=== PATIENT | female | born 1940 | race Caucasian/White ===

== ENCOUNTER 2018-06-14 00:37 | Inpatient (IN) | payer OTHER ==
[2018-06-14] MEDS ORDERED: ONDANSETRON 4 MG/2 ML VIAL ONE (01:12)
[2018-06-14] MEDS ORDERED: NA CHLORIDE 0.9% 1,000 ML ONE ×2 (01:12→01:26)
[2018-06-14] MEDS ORDERED: MEPERIDINE HCL 50 MG/ML AMP ONE (01:26)
[2018-06-14 01:36] LABS: Absolute Lymphocytes (CBC) 0.7 K/uL (0.7-4.9); Absolute Monocytes 0.2 K/uL (0.1-1.3); Absolute Neutrophil 10.1 K/uL (1.8-8.0); Basophils % 0.4 % (0-1.3); Eosinophils % 0.2 % (0-4.4); Hematocrit 45.2 % (36.0-45.0); Lymphocytes % 6.3 % (15.3-44.8); MPV 9.5 fL (7.6-11.3); Monocytes % 1.7 % (3.3-12.3); RBC Red Blood Cell Count 4.95 M/uL (3.86-4.86)
[2018-06-14 01:54] LABS: Albumin 4.4 g/dL (3.4-5.0); Bilirubin Direct 0.2 mg/dL (0-0.2); Bilirubin Total 0.8 mg/dL (0.2-1.0); Potassium 3.7 mmol/L (3.5-5.1); Protein, Total 7.9 g/dL (6.4-8.2)
[2018-06-14] MEDS ORDERED: PROMETHAZINE 25 MG/ML VIAL ONE (02:12)
[2018-06-14 02:53] LABS: Blood Morphology Comment NOT SEEN (NOT SEEN); Platelet Estimate ADEQ; Urine White Blood Cell Casts OK
[2018-06-14] MEDS ORDERED: MORPHINE 4 MG/ML SYR ONE (03:45)
[2018-06-14] MEDS ORDERED: ACETAMINOPHEN 500 MG TAB PO PRN (06:28)
[2018-06-14] MEDS ORDERED: MAGNESIUM HYDROXIDE 8% 30 ML PO PRN (06:28)
--- NOTE | 2018-06-14 06:30 | ER ---
Nurse's Notes [facility] Name: Candice Silva Age: 77 yrs Sex: Female : 1940 Arrival Date: 06/14/2018 Time: 00:40 Bed 15 Private MD: Diagnosis: Abdominal pain. Small bowel obstruction Presentation: 06/14 00:45 Presenting complaint: Patient states: that she had spicy food last night for dinner and then at 1900 started to have severe abd cramping and pain. Upon arrival to ER started to have nausea and vomiting. Transition of care: patient was not received from another setting of care. Onset of symptoms was June 13, 2018 at 19:00. Risk Assessment: Do you want to hurt yourself or someone else? Patient reports no desire to harm self or others. Initial Sepsis Screen: Does the patient meet any 2 criteria? HR > 90 bpm. Yes Does the patient have a suspected source of infection? No. Patient's initial sepsis screen is negative. Care prior to arrival: None. 00:45 Method Of Arrival: Ambulatory 00:45 Acuity: HAILEY 3 fc Historical: - Allergies: 01:06 No Known Allergies; fc - Home Meds: 01:06 losartan oral oral once daily [Active]; Tramadol Oral as needed [Active]; fc - PMHx: 01:06 Hypertension; colon cancer; fc - PSHx: 01:06 colon sx; Hysterectomy; fc - Immunization history:: Last tetanus immunization: unknown, Flu vaccine is up to date. - Social history:: Smoking status: Patient/guardian denies using tobacco, Patient uses alcohol, but reports only rare drinking. - Ebola Screening: : Patient negative for fever greater than or equal to 101.5 degrees Fahrenheit, and additional compatible Ebola Virus Disease symptoms Patient denies exposure to infectious person Patient denies travel to an Ebola-affected area in the 21 days before illness onset. Screenin:45 Abuse screen: Denies threats or abuse. Nutritional screening: No deficits noted. fc Tuberculosis screening: No symptoms or risk factors identified. Fall Risk None identified. Assessment: 01:00 General: Appears in no apparent distress. uncomfortable, Behavior is cooperative, cc3 appropriate for age. Pain: Complains of pain in left upper quadrant and right upper quadrant Pain currently is 10 out of 10 on a pain scale. Neuro: Level of Consciousness is awake, alert, obeys commands, Oriented to person, place, time, situation, Appropriate for age. Cardiovascular: Denies chest pain. Respiratory: Airway is patent Respiratory effort is even, unlabored. GI: Abdomen is round. : No signs and/or symptoms were reported regarding the genitourinary system. EENT: No signs and/or symptoms were reported regarding the EENT system. Derm: No signs and/or symptoms reported regarding the dermatologic system. Musculoskeletal: Circulation, motion, and sensation intact. Range of motion: intact in all extremities. 02:45 Reassessment: Patient has 200 mL remaining of her oral contrast and she said she cannot cc3 take it anymore, informed CT scan department and the avionic technician said it's fine she'll take the patient later for the procedure. 03:42 Reassessment: Patient vomited large amount, informed Dr. Emanuel and he ordered patient to cc3 proceed to CT scan with IV contrast, called Ct scan department at extension [id number] and the hearing aide technician is informed. 04:20 Reassessment: Patient appears in no apparent distress at this time. Patient and/or cc3 family updated on plan of care and expected duration. Pain level reassessed. Patient is alert, oriented x 3, equal unlabored respirations, skin warm/dry/pink. Patient came back from CT scan department, awaiting result. 05:05 Reassessment: Patient and/or family updated on plan of care and expected duration. Pain ea level reassessed. Patient is alert, oriented x 3, equal unlabored respirations, skin warm/dry/pink. Patient denies pain at this time. 06:45 Reassessment: Patient appears in no apparent distress at this time. Patient and/or cc3 family updated on plan of care and expected duration. Pain level reassessed. Patient is alert, oriented x 3, equal unlabored respirations, skin warm/dry/pink. Patient for admission, awaiting admission orders. Dr. Chicas at bedside. 06:55 Reassessment: KELSEY Allison said Dr. Chicas ordered to hold NGT placement for the patient, as cc3 long as she's not vomiting at the moment and as long as she's passing flatus. 07:00 Reassessment: Patient appears in no apparent distress at this time. No changes from jl7 previously documented assessment. Patient and/or family updated on plan of care and expected duration. Pain level reassessed. Patient is alert, oriented x 3, equal unlabored respirations, skin warm/dry/pink. Patient states feeling better. Patient states symptoms have improved. 08:00 Reassessment: Patient appears in no apparent distress at this time. Patient and/or jl7 family updated on plan of care and expected duration. Pain level reassessed. Patient is alert, oriented x 3, equal unlabored respirations, skin warm/dry/pink. 09:00 Reassessment: No changes from previously documented assessment. Patient and/or family jl7 updated on plan of care and expected duration. Pain level reassessed. Patient is alert, oriented x 3, equal unlabored respirations, skin warm/dry/pink. Vital Signs: 00:45 BP 180 / 94; Pulse 105; Resp 20; Pulse Ox 100% on R/A; Weight 79.38 kg (R); Height 5 fc ft. 6 in. (167.64 cm) (R); Pain 10/10; 00:45 Temp 98.1(O); cc3 01:15 BP 140 / 72; Pulse 92; Resp 20 S; Pulse Ox 95% on R/A; cc3 02:30 BP 148 / 78; Pulse 94; Resp 20 S; Pulse Ox 98% on R/A; cc3 03:30 BP 132 / 71; Pulse 92; Resp 19 S; Pulse Ox 97% on R/A; cc3 04:45 BP 112 / 62; Pulse 83; Resp 18 S; Pulse Ox 95% on R/A; cc3 05:00 BP 107 / 59; Pulse 70; Resp 18; Pulse Ox 97% ; ea 06:20 BP 110 / 62; Pulse 73; Resp 19 S; Pulse Ox 95% on R/A; cc3 07:00 BP 111 / 65; Pulse 73; Resp 16 S; Pulse Ox 96% on R/A; jl7 08:00 BP 112 / 61; Pulse 70; Resp 16 S; Pulse Ox 95% on R/A; jl7 09:00 BP 127 / 65; Pulse 87; Resp 16 S; Pulse Ox 97% on R/A; jl7 00:45 Body Mass Index 28.25 (79.38 kg, 167.64 cm) ED Course: 00:40 Patient arrived in ED. ag3 00:45 Arm band placed on Patient placed in an exam room, on a stretcher. fc 00:45 Patient has correct armband on for positive identification. Placed in gown. Bed in low fc position. Call light in reach. Side rails up X 1. Pulse ox on. NIBP on. 00:45 No provider procedures requiring assistance completed. fc 00:55 Inserted saline lock: 22 gauge in right antecubital area, using aseptic technique. fc ,using aseptic technique. per Ramya Tech. 01:00 Catarina Love is Primary Nurse. cc3 01:00 Triage completed. fc 01:01 Shiva Emanuel MD is Attending Physician. pkl 01:30 Inserted saline lock: 22 gauge in right antecubital area, using aseptic technique. gm Blood collected. 01:31 Initial lab(s) drawn, by me, sent to lab. gm 02:28 Radiology exam delayed due to Patient has been extremely nauseous. Unable to begin kw1 drinking oral contrast until 0230. 03:[address] via stretcher. kw1 04:09 CT Abd/Pelvis - W/Contrast In Process Unspecified. EDMS 04:11 CT completed. Patient tolerated procedure well. Patient moved back from CT. kw1 06:29 Nora Chicas MD is Hospitalizing Provider. pkl 07:00 Report given to KELSEY Baker. cc3 07:05 Olivia Phillips RN is Primary Nurse. jl7 09:43 Patient admitted, IV remains in place. intact, No redness/swelling at site. jl7 Administered Medications: 01:05 Drug: NS 0.9% 1000 ml Route: IV; Rate: 1 bolus; Site: right antecubital; cc3 02:10 Follow up: Response: No adverse reaction; IV Status: Completed infusion; IV Intake: cc3 1000ml 01:06 Drug: Zofran 4 mg Route: IVP; Site: right antecubital; cc3 01:30 Follow up: Response: No adverse reaction cc3 01:20 Drug: Demerol 50 mg Route: IVP; Site: right antecubital; cc3 02:00 Follow up: Response: No adverse reaction cc3 02:05 Drug: Phenergan 12.5 mg Route: IVP; Site: right antecubital; cc3 02:30 Follow up: Response: No adverse reaction; Nausea is decreased; Vomiting decreased cc3 02:30 Drug: NS 0.9% 1000 ml Route: IV; Rate: 125 ml/hr; Site: right antecubital; cc3 09:46 Follow up: IV Status: Completed infusion; IV Intake: 968ml jl7 03:35 Drug: morphine 4 mg Route: IVP; Site: right antecubital; cc3 04:00 Follow up: Response: No adverse reaction; Pain is decreased cc3 06:25 Drug: Dilaudid 1 mg Route: IVP; Site: right antecubital; cc3 06:55 Follow up: Response: No adverse reaction; Pain is decreased ea 06:55 Drug: Flagyl 500 mg Volume: 100 ml; Route: IVPB; Rate: 200 ml/hr; Infused Over: 30 cc3 mins; Site: right antecubital; 07:25 Follow up: Response: No adverse reaction; IV Status: Completed infusion jl7 07:30 Drug: LevaQUIN 750 mg Volume: 150 ml; Route: IVPB; Infused Over: 90 mins; Site: right jl7 antecubital; 09:00 Follow up: Response: No adverse reaction; IV Status: Completed infusion jl7 Intake: 02:10 IV: 1000ml; Total: 1000ml. cc3 09:46 IV: 968ml; Total: 1968ml. jl7 Outcome: 06:30 Decision to Hospitalize by Provider. pkl 09:43 Admitted to Med/surg accompanied by tech, via wheelchair, room 220. jl7 09:43 Condition: stable 09:43 Discharge instructions given to patient, Instructed on the need for admit, Demonstrated understanding of instructions. 09:44 Patient left the ED. jl7 Signatures: Dispatcher [employer] EDMS Shiva Emanuel MD MD pkArlene Hayward RN Olivia Miller RN RN jl7 Estefany Escobedo RN RN ea Wilhelm, Kimberly kw1 Cordel, Charlene 3 Esperanza Hunt Gabriella gm Corrections: (The following items were deleted from the chart) 09:45 09:44 Response: No adverse reaction; IV Status: Completed infusion jl7 jl7
--- NOTE | 2018-06-14 06:31 | EDPHYS ---
Physician Documentation [facility] Name: Candice Silva Age: 77 yrs Sex: Female : 1940 Arrival Date: 06/14/2018 Time: 00:40 Bed 15 Private MD: ED Physician Shiva Emanuel HPI: 06/14 01:20 This 77 yrs old Female presents to ER via Ambulatory with complaints of pkl Abdominal Cramping. 01:20 The patient presents with abdominal pain in the upper abdomen. Onset: The pkl symptoms/episode began/occurred just prior to arrival, 2 hour(s) ago. The symptoms do not radiate. Associated signs and symptoms: Pertinent positives: nausea and vomiting. Historical: - Allergies: 01:06 No Known Allergies; fc - Home Meds: 01:06 losartan oral oral once daily [Active]; Tramadol Oral as needed [Active]; fc - PMHx: 01:06 Hypertension; colon cancer; fc - PSHx: 01:06 colon sx; Hysterectomy; fc - Immunization history:: Last tetanus immunization: unknown, Flu vaccine is up to date. - Social history:: Smoking status: Patient/guardian denies using tobacco, Patient uses alcohol, but reports only rare drinking. - Ebola Screening: : Patient negative for fever greater than or equal to 101.5 degrees Fahrenheit, and additional compatible Ebola Virus Disease symptoms Patient denies exposure to infectious person Patient denies travel to an Ebola-affected area in the 21 days before illness onset. ROS: 01:20 Eyes: Negative for injury, pain, redness, and discharge, ENT: Negative for injury, pkl pain, and discharge, Neck: Negative for injury, pain, and swelling, Cardiovascular: Negative for chest pain, palpitations, and edema, Respiratory: Negative for shortness of breath, cough, wheezing, and pleuritic chest pain. 01:20 Abdomen/GI: Positive for abdominal pain, nausea and vomiting, of the right upper quadrant and left upper quadrant. 01:20 Back: Negative for injury or acute deformity. 01:20 : Negative for urinary symptoms. 01:20 MS/extremity: Negative for acute changes. 01:20 Skin: Negative for rash. 01:20 Neuro: Negative for altered mental status. Exam: 01:20 Head/Face: Normocephalic, atraumatic. Eyes: Pupils equal round and reactive to light, pkl extra-ocular motions intact. Lids and lashes normal. Conjunctiva and sclera are non-icteric and not injected. Cornea within normal limits. Periorbital areas with no swelling, redness, or edema. ENT: Nares patent. No nasal discharge, no septal abnormalities noted. Tympanic membranes are normal and external auditory canals are clear. Oropharynx with no redness, swelling, or masses, exudates, or evidence of obstruction, uvula midline. Mucous membranes moist. Neck: Trachea midline, no thyromegaly or masses palpated, and no cervical lymphadenopathy. Supple, full range of motion without nuchal rigidity, or vertebral point tenderness. No Meningismus. Chest/axilla: Normal chest wall appearance and motion. Nontender with no deformity. No lesions are appreciated. Cardiovascular: Regular rate and rhythm with a normal S1 and S2. No gallops, murmurs, or rubs. Normal PMI, no JVD. No pulse deficits. Respiratory: Lungs have equal breath sounds bilaterally, clear to auscultation and percussion. No rales, rhonchi or wheezes noted. No increased work of breathing, no retractions or nasal flaring. 01:20 Abdomen/GI: Inspection: distension, that is moderate, Bowel sounds: normal, Palpation: soft, mild abdominal tenderness, in the right upper quadrant and left upper quadrant. 01:20 Back: Exam negative for acute changes. 01:20 : Exam negative for acute changes. 01:20 Musculoskeletal/extremity: Exam is negative for acute changes. 01:20 Skin: Exam negative for rash. 01:20 Neuro: Orientation: is normal, Mentation: is normal, Cranial nerves: grossly normal, Motor: is normal. Vital Signs: 00:45 BP 180 / 94; Pulse 105; Resp 20; Pulse Ox 100% on R/A; Weight 79.38 kg (R); Height 5 fc ft. 6 in. (167.64 cm) (R); Pain 10/10; 00:45 Temp 98.1(O); cc3 01:15 BP 140 / 72; Pulse 92; Resp 20 S; Pulse Ox 95% on R/A; cc3 02:30 BP 148 / 78; Pulse 94; Resp 20 S; Pulse Ox 98% on R/A; cc3 03:30 BP 132 / 71; Pulse 92; Resp 19 S; Pulse Ox 97% on R/A; cc3 04:45 BP 112 / 62; Pulse 83; Resp 18 S; Pulse Ox 95% on R/A; cc3 05:00 BP 107 / 59; Pulse 70; Resp 18; Pulse Ox 97% ; ea 06:20 BP 110 / 62; Pulse 73; Resp 19 S; Pulse Ox 95% on R/A; cc3 07:00 BP 111 / 65; Pulse 73; Resp 16 S; Pulse Ox 96% on R/A; jl7 08:00 BP 112 / 61; Pulse 70; Resp 16 S; Pulse Ox 95% on R/A; jl7 09:00 BP 127 / 65; Pulse 87; Resp 16 S; Pulse Ox 97% on R/A; jl7 00:45 Body Mass Index 28.25 (79.38 kg, 167.64 cm) fc MDM: 01:02 Patient medically screened. pkl 06:28 Data reviewed: vital signs, nurses notes, lab test result(s), radiologic studies, CT pkl scan. 06/14 01:14 Order name: Basic Metabolic Panel; Complete Time: 02:55 pkl 06/14 01:14 Order name: CBC with Diff; Complete Time: 02:55 pkl 06/14 01:14 Order name: Creatinine for Radiology; Complete Time: 02:55 pkl 06/14 01:14 Order name: Hepatic Function; Complete Time: 02:55 pkl 06/14 01:14 Order name: Lipase; Complete Time: 02:55 pkl 06/14 02:53 Order name: CBC Smear Scan; Complete Time: 02:55 EDMS 06/14 06:32 Order name: CBC with Automated Diff EDMS 06/14 06:32 Order name: CBC with Automated Diff EDMS 06/14 06:32 Order name: Comprehensive Metabolic Panel EDMS 06/14 06:32 Order name: Comprehensive Metabolic Panel EDMS 06/14 06:32 Order name: Lipase EDMS 06/14 06:32 Order name: Lipase EDMS 06/14 06:32 Order name: Magnesium EDMS 06/14 06:32 Order name: Magnesium EDMS 06/14 01:14 Order name: IV Saline Lock; Complete Time: 01:14 pkl 06/14 01:14 Order name: Labs collected and sent; Complete Time: 01:28 pkl 06/14 01:14 Order name: CT Abd/Pelvis - W/Contrast pkl 06/14 06:32 Order name: CONS Physician Consult EDMS 06/14 06:32 Order name: NPO EDMS 06/14 06:32 Order name: Phosphorus EDMS 06/14 06:33 Order name: Phosphorus EDMS Administered Medications: 01:05 Drug: NS 0.9% 1000 ml Route: IV; Rate: 1 bolus; Site: right antecubital; cc3 02:10 Follow up: Response: No adverse reaction; IV Status: Completed infusion; IV Intake: cc3 1000ml 01:06 Drug: Zofran 4 mg Route: IVP; Site: right antecubital; cc3 01:30 Follow up: Response: No adverse reaction cc3 01:20 Drug: Demerol 50 mg Route: IVP; Site: right antecubital; cc3 02:00 Follow up: Response: No adverse reaction cc3 02:05 Drug: Phenergan 12.5 mg Route: IVP; Site: right antecubital; cc3 02:30 Follow up: Response: No adverse reaction; Nausea is decreased; Vomiting decreased cc3 02:30 Drug: NS 0.9% 1000 ml Route: IV; Rate: 125 ml/hr; Site: right antecubital; cc3 09:46 Follow up: IV Status: Completed infusion; IV Intake: 968ml jl7 03:35 Drug: morphine 4 mg Route: IVP; Site: right antecubital; cc3 04:00 Follow up: Response: No adverse reaction; Pain is decreased cc3 06:25 Drug: Dilaudid 1 mg Route: IVP; Site: right antecubital; cc3 06:55 Follow up: Response: No adverse reaction; Pain is decreased ea 06:55 Drug: Flagyl 500 mg Volume: 100 ml; Route: IVPB; Rate: 200 ml/hr; Infused Over: 30 cc3 mins; Site: right antecubital; 07:25 Follow up: Response: No adverse reaction; IV Status: Completed infusion jl7 07:30 Drug: LevaQUIN 750 mg Volume: 150 ml; Route: IVPB; Infused Over: 90 mins; Site: right jl7 antecubital; 09:00 Follow up: Response: No adverse reaction; IV Status: Completed infusion jl7 Disposition: 06/14/18 06:30 Hospitalization ordered by Nora Chicas for Inpatient Admission. Preliminary diagnosis is Abdominal pain. Small bowel obstruction. - Bed requested for Telemetry/MedSurg (Inpatient). - Status is Inpatient Admission. jl7 - Condition is Stable. - Problem is new. - Symptoms are unchanged. UTI on Admission? No Signatures: Dispatcher [employer] EDMS Rea Del Real RN RN Shiva Emanuel MD MD pkl Arlene Fernandez RN KELSEY Olivia Phillips RN RN jl7 Catarina Love 3 Estefany Escobedo RN, ea Corrections: (The following items were deleted from the chart) 07:49 06:20 NG Tube ordered. pk jl7 09:11 06:30 Hospitalization Ordered by Nora Chicas MD for Inpatient Admission. Preliminary dw diagnosis is Abdominal pain. Small bowel obstruction. Bed requested for Telemetry/MedSurg (Inpatient). Status is Inpatient Admission. Condition is Stable. Problem is new. Symptoms are unchanged. UTI on Admission? No. pkl 09:44 09:11 06/14/2018 06:30 Hospitalization Ordered by Nora Chicas MD for Inpatient jl7 Admission. Preliminary diagnosis is Abdominal pain. Small bowel obstruction. Bed requested for Telemetry/MedSurg (Inpatient). Status is Inpatient Admission. Condition is Stable. Problem is new. Symptoms are unchanged. UTI on Admission? No. dw
[2018-06-14] MEDS ORDERED: HYDROMORPHONE HCL 1 MG/ML INJ ONE (06:33)
[2018-06-14] MEDS ORDERED: LIDOCAINE VISCOUS 2% SOLN 15 ML UDC ONE (06:48)
[2018-06-14] MEDS: Levofloxacin500mg IV 500 MG/100 ML BAG IV SCH (07:00)
[2018-06-14] MEDS: NA CHLORIDE 0.9% 1,000 ML IV SCH ×3 (07:00→20:20)
[2018-06-14] MEDS ORDERED: Levofloxacin 750mg IV 750 MG/150 ML BAG IV ONE (07:01)
[2018-06-14] MEDS ORDERED: METRONIDAZOLE 500mg IVPB 500 MG/100 ML BAG IV ONE (07:01)
--- NOTE | 2018-06-14 07:24 | P.HP ---
Certification for Inpatient Patient admitted to: Inpatient With expected LOS: >2 Midnights Patient will require the following post-hospital care: None Practitioner: I am a practitioner with admitting privileges, knowledge of patient current condition, hospital course, and medical plan of care. Services: Services provided to patient in accordance with Admission requirements found in Title 42 Section 412.3 of the Code of Federal Regulations Patient History Date of Service: 06/14/18 Reason for admission: Small-bowel obstruction History of Present Illness: Patient is a 77-year-old female came to the hospital with abdominal pain. She states she has been eating a lot of cabbage and other foods which she normally does not eat over the holidays. Her diet has not been that great as of late. She noticed that she started having some abdominal discomfort. The pain got more severe and she came into the ER. In the emergency room she had intractable nausea and vomiting. She states that she had a bowel movement yesterday evening. She is having occasional flatus. Her CT scan indicated small-bowel obstruction. Decision was made to admit the patient to the hospital for further workup. At this time patient may have a partial small- bowel obstruction. Patient does not want an NG tube. Patient has a history of rectal cancer and have laparoscopic procedure with a colostomy 4 years ago. This was done at [facility] by Dr. Gonzales. Patient did well and has been in remission since that time. According the patient there is no sign of cancer. Allergies No Known Allergies Allergy (Unverified 11/19/13 11:41) Home Medications: Bisacodyl [Dulcolax*] 1 tab PO DAILY 11/19/13 Capecitabine [Xeloda] 3 tab PO BID 11/19/13 Hydrocodone Bit/Acetaminophen [Hydrocodon-Acetaminophn 10-325] 1 tab PO Q6HP PRN 11/19/13 Pyridoxine [Vitamin B-6*] 3 tab PO DAILY 11/19/13 Senosides [Senokot*] 1 tab PO DAILY 11/19/13 Omeprazole [Prilosec] 40 mg PO DAILY #30 capsule. 11/20/13 - Past Medical/Surgical History Diabetic: No -: Rectal Cancer -: Hysterectomy -: Bladder Suspension -: Partial colectomy -: partial colectomy-laparoscopically -: Bladder suspension -: Hysterectomy - Family History Father Family History: Reviewed- Non-Contributory - Social History Smoking Status: Never smoker Alcohol use: No CD- Drugs: No Caffeine use: Yes Review of Systems 10-point ROS is otherwise unremarkable Physical Examination - Vital Signs Temperature: 99 F Blood Pressure: 140/80 Pulse: 88 Respirations: 18 Pulse Ox (%): 95 - Physical Exam General: Alert, In no apparent distress, Oriented x3 HEENT: Atraumatic, Normocephalic Neck: Supple, 2+ carotid pulse no bruit, JVD not distended, No Thyromegaly, No LAD Respiratory: Clear to auscultation bilaterally, Normal air movement Cardiovascular: Regular rate/rhythm, Normal S1 S2, No murmurs Gastrointestinal: Normal bowel sounds, Soft and benign, Non-distended, No tenderness, No rebound, No guarding Musculoskeletal: No clubbing, No swelling Integumentary: No rashes Neurological: Normal gait, Normal speech, Normal strength at 5/5 x4 extr, Normal tone, Sensation intact, Cranial nerves 3-12 intact, Normal reflexes 2+ - Studies Laboratory Data (last 24 hrs) 06/14/18 01:05: Creatinine 0.88 06/14/18 01:05: WBC 11.0 H, Hgb 15.2 H, Hct 45.2 H, Plt Count 317 06/14/18 01:05: Sodium 142, Potassium 3.7, BUN 19 H, Creatinine 0.86, Glucose 136 H, Total Bilirubin 0.8, AST 15, ALT 26, Alkaline Phosphatase 78, Lipase 112 Assessment & Plan - Problems (Diagnosis) (1) Small bowel obstruction, partial Current Visit: Yes Status: Acute (2) Abdominal pain Current Visit: Yes Status: Acute (3) Rectal carcinoma Current Visit: Yes Status: Acute (4) History of partial colectomy Current Visit: Yes Status: Acute - Plan 1. Continue with IV hydration 2. Continue with IV antibiotics 3. Continue with pain control 4. NPO 5. General surgery consultation; 6. Serial H&H, and we will monitor CBC, BMP, LFTs and lipase along with electrolytes. 7. If nausea and vomiting then place NG tube 8. GI and DVT prophylaxis Discharge Plan: Home Plan to discharge in: Greater than 2 days - Advance Directives Does patient have a Living Will: No Does patient have a Durable POA for Healthcare: No - Code Status/Comfort Care Code Status Assessed: Yes Code Status: Full Code Critical Care: No Time Spent Managing PTS Care (In Minutes): 45
[2018-06-14] MEDS: METRONIDAZOLE 500mg IVPB 500 MG/100 ML BAG IV SCH ×2 (09:00→17:10)
--- NOTE | 2018-06-14 09:18 | RAD REPORT ---
EXAM DESCRIPTION: CT - Abdomen Pelvis W Contrast - 06/14/2018 6:25 am CLINICAL HISTORY: Abdominal pain with vomiting. Colon cancer COMPARISON: July 2017 TECHNIQUE: Computed axial tomography of the abdomen pelvis was obtained. 100 cc Isovue-300 was admin istered intravenously. Oral contrast was not requested which limits evaluation of bowel. Preliminary report generated by virtual radiologic and review prior to dictation All CT scans are performed using dose optimization technique as appropriate and may include automated exposure control or mA/KV adjustment according to patient size. FINDINGS: The liver, spleen, pancreas, adrenal and right kidney appear unremarkable. 10 Millimeter nonobstructing left renal calculus Postsurgical changes involve the sigmoid and rectum. Jejunum and portion of the ileum are mildly dilated. Distal ileum is decompressed. The wall of severa l loops of ileum is thickened. Small amount ascites is seen. The appendix is normal IMPRESSION: Obstruction in the region of the mid ileum. The wall of several loops of ileum is thicke ngozi which could indicate inflammation or ischemia.
[2018-06-14 10:32] VITALS: BMI 28.2
--- NOTE | 2018-06-14 14:04 | CON ---
Date of Consultation: 06/14/2018 Reason For Consultation: Small bowel obstruction. Brief History Of Present Illness: The patient is a 77-year-old female with a history of re ctal cancer status post resection with Dr. Matthew Gonzales, approximately 4-5 years ago, who was doing well with her diet as of the last few weeks. However, she noted that around the holidays, and so forth, she started increasing her diet intake and was eating lots of cabbage and things she livier lly did not eat, but the volume of what she had eaten had gone up significantly due to the holidays. She noted that she started developing abdominal pain. She tried to drink a lot of liquids to help r esolve this, but the pain continued to get worse. It was a sharp, stabbing-type pain, she states sim ilar to her postsurgical feel from 4-5 years ago. She states that she had some nausea and vomiting a ssociated. She had a bowel movement earlier in the day, but had not had a bowel movement since her p ain occurred. She has had no gas up until late last night at which point she started passing gas and getting some symptomatic improvement. Her pain has essentially resolved at this point. She has no tenderness or pain at this time. She does have a history of a colonoscopy approximately 1 year ago f katie Obrien by her report. The report is not available for my review. However, she states it was essentially normal at that time. She did have a temporary colostomy/ileostomy, she is unsure of the type, related to her surgery for 4-5 years ago, but had a reversal 4-5 months after her initial surg liliana and has been doing well since. She was refusing the NG tube in the emergency room and she states she has had no evidence of cancer recurrence related to her rectal cancer. Past Medical History: Significant for the rectal cancer. Past Surgical History: Includes hysterectomy, bladder suspension, partial colectomy, which was perfo rmed laparoscopically, ileostomy takedown/colostomy takedown and reversal, bladder suspension. Home Medications: Include Dulcolax, Xeloda, [place], vitamin B6, Senokot, and Prilosec. Allergies: NO KNOWN DRUG ALLERGIES. Family History: Reviewed, noncontributory. Social History: She denies smoking, alcohol, or recreational drug use. Review of Systems: A 10-point review of systems other than HPI, denies. Physical Examination: Vital Signs: At the time of my examination, her blood pressure 123/65, pulse is 87, respiratory rate 16, temperature 98.0. She is 5 feet 6 inches, 175 pounds. General: She is awake, alert, and oriented. Psychiatric: She is appropriate and conversive. HEENT: She is normocephalic. Sclerae are anicteric, and mucous membranes are moist. Oropharynx are clear. Neck: Supple. No JVD. Chest: Normal expansion and excursion. Cardiovascular: Regular rate and rhythm. Pulmonary: Clear to auscultation bilaterally. Abdomen: Soft, nontender, nondistended. No rebound. No guarding. No focal peritonitis. Well-heal ed surgical scars are evident from laparoscopic surgery as well as colostomy/ileostomy site, also wel l healed. She may have a small tiny periumbilical hernia with no contents contained. Her abdominal examination is essentially benign at this time. Extremities: No clubbing, cyanosis, or edema. Skin: Warm and dry. Laboratory Data: Reveals white blood count 11.0, hemoglobin 15.2, hematocrit of 45.2, platelet count is 317, neutrophils are 91%. Sodium 142, potassium 3.7, chloride 106, carbon dioxide 26, BUN 19, cr eatinine 0.8, glucose is 136, calcium 9.9, total bilirubin 0.8, AST 15, ALT 26, alkaline phosphatase is 78, lipase is 112. She had a CT scan performed of the abdomen and pelvis, which was officially re ad as obstruction of the region of the mid ileum. The wall of several loops of ileum is thickened, w hich could indicate inflammation or ischemia. Postsurgical changes involving the sigmoid and rectum, 10 mm nonobstructing left renal calculus. A small amount of ascites is seen. The appendix is livier l. Assessment And Plan: This is a 77-year-old female who comes in with signs and symptoms of a partial small-bowel obstruction, now with significant symptomatic improvement and resolution of her pain. Sh e is passing gas and therefore, I recommend starting clear liquid diet and advance as tolerated. Con tinue serial abdominal exams. Continue current medical management. I will follow along with you. CORTNEY/YARIEL Voice ID: [id number] Report ID: [id number]
[2018-06-14] MEDS: ONDANSETRON 4 MG/2 ML VIAL IV PRN ×2 (14:24→17:26)
[2018-06-14 15:03] LABS: Urine Appearance CLEAR; Urine Bilirubin NEGATIVE (NEG); Urine Blood NEGATIVE (NEG); Urine Color YELLOW; Urine Glucose NEGATIVE (NEG); Urine Protein NEGATIVE (NEG); Urine Specific Gravity >=1.030 (1.005-1.030); Urine Urobilinogen 0.2 mg/dL (0.2-1.0); Urine pH 5.5 (5.0-7.0)
[2018-06-14 15:10] LABS: Urine Microscopic Reflex NO UMIC
[2018-06-14] MEDS: ENOXAPARIN 30 MG/0.3 ML SQ SCH ×2 (17:00→17:10)
[2018-06-14] MEDS: HYDROMORPHONE HCL 1 MG/ML INJ IV PRN ×2 (17:26→23:25)
[2018-06-14] MEDS ORDERED: POTASSIUM CL SA 10 MEQ TAB PO SCH (21:00)
[2018-06-15] MEDS: NA CHLORIDE 0.9% 1,000 ML IV SCH ×3 (00:59→20:50)
[2018-06-15] MEDS: METRONIDAZOLE 500mg IVPB 500 MG/100 ML BAG IV SCH ×3 (00:59→16:40)
[2018-06-15] MEDS: Levofloxacin500mg IV 500 MG/100 ML BAG IV SCH (05:44)
[2018-06-15] MEDS: HYDROMORPHONE HCL 1 MG/ML INJ IV PRN (05:44)
[2018-06-15 07:04] LABS: Absolute Lymphocytes (CBC) 0.4 K/uL (0.7-4.9); Absolute Monocytes 0.4 K/uL (0.1-1.3); Absolute Neutrophil 4.3 K/uL (1.8-8.0); Basophils % 0.3 % (0-1.3); Eosinophils % 0.8 % (0-4.4); Lymphocytes % 7.7 % (15.3-44.8); MPV 9.1 fL (7.6-11.3); Monocytes % 7.5 % (3.3-12.3)
[2018-06-15 07:45] LABS: ALT/SGPT 19 U/L (12-78); AST/SGOT 7 U/L (15-37); Albumin 2.9 g/dL (3.4-5.0); Alkaline Phosphatase 44 U/L (45-117); BUN Blood Urea Nitrogen 15 mg/dL (7-18); Bicarbonate 27 mmol/L (21-32); Bilirubin Total 0.7 mg/dL (0.2-1.0); Glucose Level 117 mg/dL (74-106); Lipase 78 U/L (73-393); Magnesium 1.7 mg/dL (1.8-2.4); Phosphorus 2.8 mg/dL (2.5-4.9); Potassium 3.9 mmol/L (3.5-5.1); Protein, Total 5.6 g/dL (6.4-8.2); Sodium Level 143 mmol/L (136-145)
[2018-06-15] MEDS: ONDANSETRON 4 MG/2 ML VIAL IV PRN (08:43)
[2018-06-15] MEDS: ENOXAPARIN 30 MG/0.3 ML SQ SCH (08:44)
[2018-06-15] MEDS ORDERED: POTASSIUM CL SA 10 MEQ TAB PO ONE (09:00)
[2018-06-15] MEDS ORDERED: MAGNESIUM SULFATE 1 gm IVPB 1 GM/100 ML BAG IV ONE (09:00)
--- NOTE | 2018-06-15 09:56 | P.PN ---
Subjective Date of Service: 06/15/18 Chief Complaint: Small-bowel obstruction Patient continues to pass gas, has no abdominal pain or distention, but had nausea with emesis after medication administration and with some liquids. Physical Examination - Vital Signs Temperature: 98.3 F Blood Pressure: 120/58 Pulse: 68 Respirations: 16 Pulse Ox (%): 95 - Physical Exam General: Alert, In no apparent distress, Cooperative Gastrointestinal: Soft and benign, Non-distended, No ascites, No tenderness, No masses, No rebound, No guarding Assessment And Plan - Current Problems (Diagnosis) (1) Small bowel obstruction, partial Current Visit: Yes Status: Acute Plan: - Patient has nausea and emesis - perhaps due to medication administration as there is a temporal correlation to administration with symptoms - Recommend DC antibiotics and other potentially nauseating meds - continue clear liquids today - ambulate with assist - serial exams, as patient has NO pain, tenderness, or distention. - will re-assess in AM
--- NOTE | 2018-06-15 17:49 | P.PN ---
Subjective Date of Service: 06/15/18 Chief Complaint: Small-bowel obstruction Subjective: No new changes, No C/O voiced, Improving Patient seen and examined at bedside. at bedside. Case discussed with nursing staff and Dr. Zamora. Improving though still having dry heaves with liquids. No vomiting, + passing gas. No BM Review of Systems 10-point ROS is otherwise unremarkable Physical Examination - Vital Signs Temperature: 98.0 F Blood Pressure: 127/61 Pulse: 114 Respirations: 18 Pulse Ox (%): 96 - Physical Exam General: Alert, In no apparent distress, Oriented x3 HEENT: Atraumatic, PERRLA, EOMI Neck: Supple, JVD not distended Respiratory: Clear to auscultation bilaterally, Normal air movement Cardiovascular: Regular rate/rhythm, Normal S1 S2 Gastrointestinal: Hypoactive, Tenderness Musculoskeletal: No tenderness Integumentary: No rashes Neurological: Normal speech, Normal tone, Normal affect Lymphatics: No axilla or inguinal lymphadenopathy Assessment And Plan - Current Problems (Diagnosis) (1) Abdominal pain Current Visit: Yes Status: Acute Qualifiers: Abdominal location: generalized Qualified Code(s): R10.84 - Generalized abdominal pain (2) History of partial colectomy Current Visit: Yes Status: Acute (3) Rectal carcinoma Current Visit: Yes Status: Acute (4) Small bowel obstruction, partial Current Visit: Yes Status: Acute - Plan 1. Continue with IV hydration 2. Continue with IV antibiotics 3. Continue with pain control 4. Clear liquid diet; 5. General surgery consultation; Recommendations appreciated. 6. Serial H&H, and we will monitor CBC, BMP, LFTs and lipase along with electrolytes. 7. If nausea and vomiting then place NG tube DVT prophylaxis: Lovenox GI prophylaxis: Protonix Diet: Clear liquids Disposition: pending symptomatic improvement. Physician Review: Patient Assessed, Agree with Above Assessment and Plan Time Spent Managing PTS Care (In Minutes): 35
[2018-06-15] MEDS ORDERED: TEMAZEPAM 15 MG CAP PO PRN (23:00)
[2018-06-16] MEDS: METRONIDAZOLE 500mg IVPB 500 MG/100 ML BAG IV SCH ×2 (01:05→09:43)
[2018-06-16] MEDS: NA CHLORIDE 0.9% 1,000 ML IV SCH ×2 (06:03→11:25)
[2018-06-16] MEDS: Levofloxacin500mg IV 500 MG/100 ML BAG IV SCH (06:03)
[2018-06-16] MEDS ORDERED: PANTOPRAZOLE 40MG TABLET PO SCH (06:30)
[2018-06-16 08:05] LABS: Potassium 3.8 mmol/L (3.5-5.1)
[2018-06-16] MEDS ORDERED: LOSARTAN POTASSIUM 50 MG TABLET PO SCH (09:00)
[2018-06-16] MEDS: ENOXAPARIN 30 MG/0.3 ML SQ SCH ×2 (09:00→09:43)
[2018-06-16 11:32] VITALS: O2SAT 96
[2018-06-16 13:58] VITALS: BP 147/71; TEMP 97.7
--- NOTE | 2018-06-16 22:28 | P.DS ---
Admission Date: 06/14/18 Discharge Date: 06/16/18 Disposition: ROUTINE DISCHARGE Discharge Condition: GOOD Reason for Admission: Small-bowel obstruction Consultations: General surgery, Noah - Problems (1) Abdominal pain Onset Date: 06/16/18 Status: Acute Qualifiers: Abdominal location: generalized Qualified Code(s): R10.84 - Generalized abdominal pain (2) History of partial colectomy Status: Acute (3) Rectal carcinoma Onset Date: 06/16/18 Status: Acute (4) Small bowel obstruction, partial Onset Date: 06/16/18 Status: Acute Brief History of Present Illness: Patient is a 77-year-old female came to the hospital with abdominal pain. She states she has been eating a lot of cabbage and other foods which she normally does not eat over the holidays. Her diet has not been that great as of late. She noticed that she started having some abdominal discomfort. The pain got more severe and she came into the ER. In the emergency room she had intractable nausea and vomiting. She states that she had a bowel movement yesterday evening. She is having occasional flatus. Her CT scan indicated small-bowel obstruction. Decision was made to admit the patient to the hospital for further workup. At this time patient may have a partial small- bowel obstruction. Patient does not want an NG tube. Patient has a history of rectal cancer and have laparoscopic procedure with a colostomy 4 years ago. This was done at [facility] by Dr. Gonzales. Patient did well and has been in remission since that time. According the patient there is no sign of cancer. Hospital Course: Patient was admitted, treated with conservatiive management. Surgery was consulted with no plans for surgical interventions at this time. Patient's symptoms improved. She was started on a clear liquid diet and advanced to GI soft. At the time of discharge, patient was tolerating a GI soft diet, was ambulating, passing gas and was asymptomatic. Vital Signs/Physical Exam: Temp Pulse Resp BP Pulse Ox 97.7 F 63 20 147/71 H 95 06/16/18 12:00 06/16/18 12:00 06/16/18 12:00 06/16/18 12:00 06/16/18 12:00 General: Alert, In no apparent distress HEENT: Atraumatic, PERRLA, EOMI Neck: Supple, JVD not distended Respiratory: Clear to auscultation bilaterally, Normal air movement Cardiovascular: Regular rate/rhythm, Normal S1 S2 Gastrointestinal: Normal bowel sounds, No tenderness Musculoskeletal: No tenderness Integumentary: No rashes Neurological: Normal speech, Normal tone, Normal affect Lymphatics: No axilla or inguinal lymphadenopathy Laboratory Data at Discharge: WBC 5.1 K/uL (4.3-10.9) D 06/15/18 06:30 Hgb 12.4 g/dL (12.0-15.0) D 06/15/18 06:30 Hct 37.0 % (36.0-45.0) D 06/15/18 06:30 Plt Count 209 K/uL (152-406) D 06/15/18 06:30 Sodium 145 mmol/L (136-145) 06/16/18 07:42 Potassium 3.8 mmol/L (3.5-5.1) 06/16/18 07:42 BUN 10 mg/dL (7-18) 06/16/18 07:42 Creatinine 0.74 mg/dL (0.55-1.3) 06/16/18 07:42 Glucose 109 mg/dL (74-106) H 06/16/18 07:42 Phosphorus 2.8 mg/dL (2.5-4.9) 06/15/18 06:30 Magnesium 2.0 mg/dL (1.8-2.4) 06/16/18 07:42 Total Bilirubin 0.7 mg/dL (0.2-1.0) 06/15/18 06:30 AST 7 U/L (15-37) L 06/15/18 06:30 ALT 19 U/L (12-78) 06/15/18 06:30 Alkaline Phosphatase 44 U/L (45-117) L 06/15/18 06:30 Lipase 78 U/L (73-393) 06/15/18 06:30 Home Medications: Ibuprofen/Diphenhydramine HCl [Advil Pm Liqui-Gels] 500 mg PO BEDTIME 06/14/18 Losartan Potassium 75 mg PO DAILY 06/14/18 Tramadol HCl [Ultram] 50 mg PO PRN PRN 06/14/18 Patient Discharge Instructions: Please follow up with your primary care physician in 1-2 weeks. Diet: GI soft, advance as tolerated. Activity: Ad ashley Time spent managing pt's care (in minutes): 55
== END 2018-06-16 14:20 | disposition home or self-care (01) | DRG 389 ==
LOC: ER 00:37 → ERHOLD 06:29 → 2ND 09:36
PROVIDERS: ADMIT Hospitalist; ATTEND Family Medicine
DX: K56.600 Partial intestinal obstruction, unspecified as to cause (principal); C20 Malignant neoplasm of rectum; R10.84 Generalized abdominal pain; Z90.49 Acquired absence of other specified parts of digestive tract
CPT/HCPCS: 36415; 74177; 80048; 80053; 80076; 81003; 83690; 83735; 84100; 84132; 85025; 96361; 96365; 96367; 96375; 99285; J1170; J1650; J2175; J2405; J2550; J3475; J7030; Q9967

== ENCOUNTER 2018-11-04 01:18 | Inpatient (IN) | payer OTHER ==
[2018-11-04 02:02] LABS: Absolute Lymphocytes (CBC) 0.5 K/uL (0.7-4.9); Absolute Monocytes 0.4 K/uL (0.1-1.3); Basophils % 0.4 % (0-1.3); Eosinophils % 0.9 % (0-4.4); Hematocrit 40.9 % (36.0-45.0); Lymphocytes % 8.3 % (15.3-44.8); MPV 8.8 fL (7.6-11.3); Monocytes % 6.6 % (3.3-12.3)
[2018-11-04] MEDS ORDERED: FAMOTIDINE 20 MG/2 ML VIAL IV ONE (02:16)
[2018-11-04] MEDS ORDERED: ONDANSETRON 4 MG/2 ML VIAL ONE ×2 (02:16→05:33)
[2018-11-04 02:19] LABS: Albumin 3.9 g/dL (3.4-5.0); Bilirubin Direct 0.1 mg/dL (0-0.2); Bilirubin Total 0.7 mg/dL (0.2-1.0); Protein, Total 7.4 g/dL (6.4-8.2)
[2018-11-04 02:51] LABS: Urine Bacteria <20 /HPF (<20); Urine Culture Reflex Order NOT NEEDED; Urine RBC NONE SEEN /HPF (NONE SEEN)
[2018-11-04 02:56] LABS: Urine Blood TRACE (NEG); Urine Glucose NEGATIVE (NEG); Urine Protein NEGATIVE (NEG); Urine pH 5.5 (5.0-7.0)
[2018-11-04] MEDS ORDERED: MORPHINE 4 MG/ML SYR ONE (03:15)
[2018-11-04] MEDS ORDERED: FENTANYL CITR 100 MCG/2 ML ONE (03:27)
[2018-11-04] MEDS ORDERED: NA CHLORIDE 0.9% 1,000 ML ONE (04:12)
--- NOTE | 2018-11-04 06:02 | EDPHYS ---
Physician Documentation [facility] Name: Candice Silva Age: 78 yrs Sex: Female : 1940 Arrival Date: 11/04/2018 Time: 01:21 Bed 19 Private MD: Fortino Camara E ED Physician Luigi August HPI: 11/04 01:37 This 78 yrs old Female presents to ER via Ambulatory with complaints of cp Abdominal Pain. 01:37 The patient presents with abdominal pain in the periumbilical area. abdominal cp distention that is diffuse. Onset: The symptoms/episode began/occurred today. The symptoms do not radiate. Associated signs and symptoms: Pertinent positives: nausea, Pertinent negatives: blood in stools, constipation, diarrhea, dysuria, fever, vomiting. Historical: - Allergies: 01:37 No Known Allergies; aa1 - Home Meds: 01:37 losartan Oral once daily [Active]; Tramadol Oral as needed [Active]; aa1 - PMHx: 01:37 colon cancer; Hypertension; bowel obstruction; Arthritis; aa1 - PSHx: 01:37 Hysterectomy; colon sx; aa1 - Immunization history:: Flu vaccine is up to date. - Social history:: Smoking status: Patient/guardian denies using tobacco. - Ebola Screening: : No symptoms or risks identified at this time. ROS: 01:45 Constitutional: Negative for body aches, chills, fever, poor PO intake. cp 01:45 Eyes: Negative for injury, pain, redness, and discharge. cp 01:45 ENT: Negative for drainage from ear(s), ear pain, sore throat, difficulty swallowing, difficulty handling secretions. 01:45 Cardiovascular: Negative for chest pain, edema, palpitations. 01:45 Respiratory: Negative for cough, shortness of breath, wheezing. 01:45 Abdomen/GI: Positive for abdominal pain, nausea, abdominal distension, Negative for vomiting, diarrhea, constipation, black/tarry stool, rectal bleeding. 01:45 Back: Negative for pain at rest, pain with movement, radiated pain. 01:45 : Negative for urinary symptoms. 01:45 Neuro: Negative for altered mental status, headache, weakness. 01:45 All other systems are negative. Exam: 01:48 Head/Face: Normocephalic, atraumatic. cp 01:48 Constitutional: The patient appears in no acute distress, alert, awake, non-diaphoretic, non-toxic, well developed, well nourished. 01:48 Eyes: Periorbital structures: appear normal, Conjunctiva: normal, no exudate, no cp injection, Sclera: no appreciated abnormality, Lids and lashes: appear normal, bilaterally. 01:48 ENT: External ear(s): are unremarkable, Nose: is normal, Mouth: Lips: moist, Oral mucosa: pink and intact, moist, Posterior pharynx: is normal, airway is patent, no erythema, no exudate. 01:48 Chest/axilla: Inspection: normal, Palpation: is normal, no crepitus, no tenderness. 01:48 Cardiovascular: Rate: normal, Rhythm: regular. 01:48 Respiratory: the patient does not display signs of respiratory distress, Respirations: normal, no use of accessory muscles, no retractions, no splinting, no tachypnea, labored breathing, is not present, Breath sounds: are clear throughout, no decreased breath sounds, no stridor, no wheezing. 01:48 Abdomen/GI: Inspection: distension, that is moderate, Bowel sounds: active, all quadrants, Palpation: soft, in all quadrants, mild abdominal tenderness, in all quadrants, rebound tenderness, is not appreciated, involuntary guarding, is not appreciated. Vital Signs: 01:37 BP 175 / 82; Pulse 83; Resp 18; Temp 97.5; Pulse Ox 100% on R/A; Weight 74.84 kg; aa1 Height 5 ft. 6 in. (167.64 cm); Pain 6/10; 02:42 BP 161 / 87; Pulse 79; Resp 18 S; Pulse Ox 100% on R/A; cc3 04:00 BP 161 / 73; Pulse 74; Resp 16; Pulse Ox 100% on R/A; jb4 05:30 BP 164 / 78; Pulse 67; Resp 18; Pulse Ox 97% on R/A; jb4 07:00 BP 132 / 67; Pulse 72; Resp 17; Temp 97.4(O); Pulse Ox 98% on R/A; Pain 3/10; rb1 07:47 BP 126 / 67; Pulse 65; Resp 17; Temp 97.9(O); Pulse Ox 96% on R/A; Pain 3/10; rb1 01:37 Body Mass Index 26.63 (74.84 kg, 167.64 cm) aa1 MDM: 01:33 Patient medically screened. cp 06:00 Differential diagnosis: bowel obstruction, diverticulitis, non-specific abd pain, gs pancreatitis. Data reviewed: vital signs, nurses notes, lab test result(s), radiologic studies. Counseling: I had a detailed discussion with the patient and/or guardian regarding: the historical points, exam findings, and any diagnostic results supporting the discharge/admit diagnosis, lab results, radiology results, the need for further work-up and treatment in the hospital. Response to treatment: the patient's symptoms have mildly improved after treatment, and as a result, I will admit patient. 06:00 ED course: seen and examined pt stable will admit. gs 11/04 01:39 Order name: Basic Metabolic Panel cp 11/04 01:39 Order name: CBC with Diff cp 11/04 01:39 Order name: Creatinine for Radiology; Complete Time: 02:57 cp 11/04 01:39 Order name: Hepatic Function; Complete Time: 02:57 cp 11/04 01:39 Order name: Lipase; Complete Time: 02:57 cp 11/04 01:39 Order name: Urine Microscopic Only; Complete Time: 02:57 cp 11/04 01:41 Order name: Basic Metabolic Panel; Complete Time: 02:57 EDMS 11/04 01:41 Order name: CBC with Automated Diff; Complete Time: 02:57 EDMS 11/04 01:42 Order name: CT Abd/Pelvis - W/Contrast: give oral contrast 11/04 02:49 Order name: Urine Dipstick--Ancillary (enter results); Complete Time: 05:53 mw2 11/04 01:39 Order name: IV Saline Lock; Complete Time: 02:09 cp 11/04 01:39 Order name: Labs collected and sent; Complete Time: 02:09 cp 11/04 01:39 Order name: Urine Dipstick-Ancillary (obtain specimen); Complete Time: 02:41 cp Administered Medications: 02:05 Drug: Zofran 4 mg Route: IVP; Site: left antecubital; cc3 02:15 Follow up: Response: No adverse reaction; Nausea is decreased cc3 02:08 Drug: Pepcid 20 mg Route: IVP; Site: left antecubital; cc3 02:15 Follow up: Response: No adverse reaction cc3 03:00 Drug: fentaNYL (PF) 25 mcg Route: IVP; Site: left antecubital; jb4 03:30 Follow up: Response: No adverse reaction; Pain is decreased jb4 03:03 Drug: morphine 4 mg Route: IVP; Site: left antecubital; cc3 03:10 Follow up: Response: No adverse reaction; Pain is increased jb4 04:00 Drug: NS 0.9% 500 ml Route: IV; Rate: bolus; Site: left antecubital; jb4 05:30 Follow up: Response: No adverse reaction; IV Status: Completed infusion; IV Intake: jb4 500ml 05:25 Drug: Zofran 4 mg Route: IVP; Site: left antecubital; jb4 06:15 Follow up: Response: No adverse reaction; Nausea unchanged jb4 05:32 Drug: NS 0.9% 1000 ml Route: IV; Rate: 100 ml/hr; Site: left antecubital; jb4 Disposition: 05:59 Co-signature as Attending Physician, Luigi August MD. Disposition: 11/04/18 06:01 Hospitalization ordered by Karin Burks for Inpatient Admission. Preliminary diagnosis is Other intestinal obstruction. - Bed requested for Telemetry/MedSurg (Inpatient). - Status is Inpatient Admission. rb1 - Condition is Stable. - Problem is new. - Symptoms are unchanged. UTI on Admission? No Signatures: Dispatcher [employer] EDIL Jenni Vale RN RN Narda Diane RN RN aa1 Vernon Johnson PA PA cp Barber, Rebecca, RN RN rb1 Braxton Turner RN RN jb4 Luigi August MD MD Catarina Love cc3 Corrections: (The following items were deleted from the chart) 06:23 06:01 Hospitalization Ordered by Karin Burks MD for Inpatient Admission. Preliminary diagnosis is Other intestinal obstruction. Bed requested for Telemetry/MedSurg (Inpatient). Status is Inpatient Admission. Condition is Stable. Problem is new. Symptoms are unchanged. UTI on Admission? No. 07:02 05:51 NG Tube ordered. jb4 07:49 06:23 11/04/2018 06:01 Hospitalization Ordered by Karin Burks MD for Inpatient rb1 Admission. Preliminary diagnosis is Other intestinal obstruction. Bed requested for Telemetry/MedSurg (Inpatient). Status is Inpatient Admission. Condition is Stable. Problem is new. Symptoms are unchanged. UTI on Admission? No. mw
--- NOTE | 2018-11-04 06:02 | ER ---
Nurse's Notes [facility] Name: Candice Silva Age: 78 yrs Sex: Female : 1940 Arrival Date: 11/04/2018 Time: 01:21 Bed 19 Private MD: Fortino Camara E Diagnosis: Other intestinal obstruction Presentation: 11/04 01:35 Presenting complaint: Patient states: sudden onset of abd pain since approx 2200. aa1 Reports hx of bowel obs and believes she has the same thing. Transition of care: patient was not received from another setting of care. Onset of symptoms was November 03, 2018 at 22:00. Risk Assessment: Do you want to hurt yourself or someone else? Patient reports no desire to harm self or others. Initial Sepsis Screen: Does the patient meet any 2 criteria? No. Patient's initial sepsis screen is negative. Does the patient have a suspected source of infection? Yes: Acute abdominal pain. Care prior to arrival: None. 01:35 Method Of Arrival: Ambulatory aa1 01:35 Acuity: HAILEY 3 aa1 Triage Assessment: 01:37 General: Appears in no apparent distress. uncomfortable, Behavior is calm, cooperative, aa1 appropriate for age. Pain: Complains of pain in abdomen. Historical: - Allergies: 01:37 No Known Allergies; aa1 - Home Meds: 01:37 losartan Oral once daily [Active]; Tramadol Oral as needed [Active]; aa1 - PMHx: 01:37 colon cancer; Hypertension; bowel obstruction; Arthritis; aa1 - PSHx: 01:37 Hysterectomy; colon sx; aa1 - Immunization history:: Flu vaccine is up to date. - Social history:: Smoking status: Patient/guardian denies using tobacco. - Ebola Screening: : No symptoms or risks identified at this time. Screenin:30 Abuse screen: Denies threats or abuse. Denies injuries from another. Nutritional cc3 screening: No deficits noted. Tuberculosis screening: No symptoms or risk factors identified. Fall Risk Ambulatory Aid- None/Bed Rest/Nurse Assist (0 pts). Gait- Normal/Bed Rest/Wheelchair (0 pts) Mental Status- Oriented to own ability (0 pts). Assessment: 01:30 GI: Bowel sounds present X 4 quads. Abd is soft Abdomen is tender to palpation in cc3 periumbilical area. 01:30 General: Appears in no apparent distress. uncomfortable, Behavior is calm, cooperative, cc3 appropriate for age. Pain: Complains of pain in abdomen. Neuro: Level of Consciousness is awake, alert, obeys commands, Oriented to person, place, time, situation, Appropriate for age. Cardiovascular: Denies chest pain, Patient's skin is warm and dry. Respiratory: Airway is patent Respiratory effort is even, unlabored, Respiratory pattern is regular, symmetrical. : No signs and/or symptoms were reported regarding the genitourinary system. EENT: No signs and/or symptoms were reported regarding the EENT system. Derm: No signs and/or symptoms reported regarding the dermatologic system. Musculoskeletal: Circulation, motion, and sensation intact. Range of motion: intact in all extremities. 02:20 Reassessment: Patient appears in no apparent distress at this time. Patient and/or cc3 family updated on plan of care and expected duration. Pain level reassessed. Patient is alert, oriented x 3, equal unlabored respirations, skin warm/dry/pink. 02:45 Reassessment: Patient said she's having abdominal pain again, PA Page informed. cc3 03:00 Reassessment: Patient and/or family updated on plan of care and expected duration. Pain cc3 level reassessed. Patient is alert, oriented x 3, equal unlabored respirations, skin warm/dry/pink. Patient said she cannot drink more of the oral contrast, she's on the 200 mL line on the bottle, on site wastewater systems technician Madiha informed. 04:00 Reassessment: Patient appears in no apparent distress at this time. Patient and/or jb4 family updated on plan of care and expected duration. Pain level reassessed. Patient is alert, oriented x 3, equal unlabored respirations, skin warm/dry/pink. 05:33 Reassessment: Patient appears in no apparent distress at this time. Patient and/or jb4 family updated on plan of care and expected duration. Pain level reassessed. Patient is alert, oriented x 3, equal unlabored respirations, skin warm/dry/pink. 05:36 Reassessment: Pt reports an increase in pain, provider notified. jb4 06:10 Reassessment: Patient appears in no apparent distress at this time. Patient and/or jb4 family updated on plan of care and expected duration. Pain level reassessed. Patient is alert, oriented x 3, equal unlabored respirations, skin warm/dry/pink. Hospitalist is at the bedside. Pt currently refusing NG tube placement. 07:00 General: Appears in no apparent distress. comfortable, Behavior is calm, cooperative, rb1 Pt. was educated on the need for NG Tube but continues to refuse it. Provider is aware that the pt. refused per KELSEY Gamboa report. I asked if she was willing to have one inserted when I did my assessment but the pt. continues to refuse it.. General: Reports Pt. reports feeling better since she arrived this morning. Pain: Complains of pain in abdomen Pain currently is 3 out of 10 on a pain scale. Neuro: Level of Consciousness is awake, alert, obeys commands, Oriented to person, place, time, situation. Cardiovascular: Capillary refill < 3 seconds is brisk in bilateral fingers. Respiratory: Airway is patent Respiratory effort is even, unlabored, Respiratory pattern is regular, symmetrical. GI: Bowel sounds present X 4 quads. Reports feeling better since arriving this morning. Derm: Skin is pink, warm \\T\\ dry. 07:02 Reassessment: Pt refused ng tube, states" I am feeling a litter better and I would like jb4 to wait to until I get upstairs to my room and see how I am feeling then.". 07:35 Reassessment: Called report to KELSEY Mcgee. Information from the SBAR was given. All rb1 questions asked and answered. 07:46 Reassessment: Patient appears in no apparent distress at this time. No changes from rb1 previously documented assessment. Vital Signs: 01:37 BP 175 / 82; Pulse 83; Resp 18; Temp 97.5; Pulse Ox 100% on R/A; Weight 74.84 kg; aa1 Height 5 ft. 6 in. (167.64 cm); Pain 6/10; 02:42 BP 161 / 87; Pulse 79; Resp 18 S; Pulse Ox 100% on R/A; cc3 04:00 BP 161 / 73; Pulse 74; Resp 16; Pulse Ox 100% on R/A; jb4 05:30 BP 164 / 78; Pulse 67; Resp 18; Pulse Ox 97% on R/A; jb4 07:00 BP 132 / 67; Pulse 72; Resp 17; Temp 97.4(O); Pulse Ox 98% on R/A; Pain 3/10; rb1 07:47 BP 126 / 67; Pulse 65; Resp 17; Temp 97.9(O); Pulse Ox 96% on R/A; Pain 3/10; rb1 01:37 Body Mass Index 26.63 (74.84 kg, 167.64 cm) aa1 ED Course: 01:21 Patient arrived in ED. es 01:22 Fortino Camara MD is Private Physician. es 01:26 Vernon Johnson PA is PHCP. cp 01:26 Luigi August MD is Attending Physician. cp 01:30 Catarina Love is Primary Nurse. cc3 01:30 Patient has correct armband on for positive identification. Placed in gown. Bed in low cc3 position. Call light in reach. Side rails up X 1. Pulse ox on. NIBP on. 01:30 Inserted saline lock: 20 gauge in left antecubital area, using aseptic technique. Blood cc3 collected. 01:36 Triage completed. aa1 01:37 Arm band placed on right wrist. aa1 03:00 Report given to KELSEY Gamboa. cc3 03:51 Braxton Turner RN is Primary Nurse. jb4 05:22 CT Abd/Pelvis - W/Contrast: give oral contrast In Process Unspecified. EDMS 06:01 Karin Burks MD is Hospitalizing Provider. gs 07:48 No provider procedures requiring assistance completed. Patient admitted, IV remains in rb1 place. Administered Medications: 02:05 Drug: Zofran 4 mg Route: IVP; Site: left antecubital; cc3 02:15 Follow up: Response: No adverse reaction; Nausea is decreased cc3 02:08 Drug: Pepcid 20 mg Route: IVP; Site: left antecubital; cc3 02:15 Follow up: Response: No adverse reaction cc3 03:00 Drug: fentaNYL (PF) 25 mcg Route: IVP; Site: left antecubital; jb4 03:30 Follow up: Response: No adverse reaction; Pain is decreased jb4 03:03 Drug: morphine 4 mg Route: IVP; Site: left antecubital; cc3 03:10 Follow up: Response: No adverse reaction; Pain is increased jb4 04:00 Drug: NS 0.9% 500 ml Route: IV; Rate: bolus; Site: left antecubital; jb4 05:30 Follow up: Response: No adverse reaction; IV Status: Completed infusion; IV Intake: jb4 500ml 05:25 Drug: Zofran 4 mg Route: IVP; Site: left antecubital; jb4 06:15 Follow up: Response: No adverse reaction; Nausea unchanged jb4 05:32 Drug: NS 0.9% 1000 ml Route: IV; Rate: 100 ml/hr; Site: left antecubital; jb4 Intake: 05:30 IV: 500ml; Total: 500ml. jb4 Outcome: 06:01 Decision to Hospitalize by Provider. 07:48 Admitted to Tele accompanied by tech, via wheelchair, room 415, with chart, Report rb1 called to KELSEY Mcgee 07:48 Condition: stable 07:48 Instructed on the need for admit. 07:49 Patient left the ED. rb1 Signatures: Dispatcher [employer] Narda Dupree RN RN aa1 Tamiko Marcos Corey, PA PA Noni Morales RN RN rb1 Braxton Turner RN RN Genesis Acuña [facility] Luigi August MD MD gs Cordel, Charlene cc3 Corrections: (The following items were deleted from the chart) 02:44 02:42 Pulse 79bpm; Resp 18bpm; Pulse Ox 100% RA; cc3 cc3 05:43 05:41 No provider procedures requiring assistance completed. jb4 jb4 :43 05:41 IV discontinued, intact, bleeding controlled, No redness/swelling at site. jb4 jb4 05:43 05:41 Reassessment: Patient appears in no apparent distress at this time. Patient jb4 and/or family updated on plan of care and expected duration. Pain level reassessed. Patient is alert, oriented x 3, equal unlabored respirations, skin warm/dry/pink. Pt left ED ambulatory with steady gait, d/c'ed home with family. jb4 05:41 Discharged to home ambulatory, with family, [facility] :43 05:41 Condition: stable jb jb4 :43 05:41 Discharge instructions given to patient, family, Instructed on discharge jb4 instructions, follow up and referral plans. medication usage, Demonstrated understanding of instructions, follow-up care, medications, Prescriptions given X 1, jb4 05:51 05:32 Response: No adverse reaction; IV Status: Completed infusion; IV Intake: 500ml [id number] 07:07 07:05 BP 132 / 67; Pulse 70bpm; Resp 18bpm; Pulse Ox 99% RA; mh5 mh5
--- NOTE | 2018-11-04 06:31 | P.HP ---
Certification for Inpatient Patient admitted to: Inpatient With expected LOS: >2 Midnights Practitioner: I am a practitioner with admitting privileges, knowledge of patient current condition, hospital course, and medical plan of care. Services: Services provided to patient in accordance with Admission requirements found in Title 42 Section 412.3 of the Code of Federal Regulations Patient History Date of Service: 11/04/18 Reason for admission: SBO History of Present Illness: Ms Blue is a 78 years old woman with history of colorectal cancer, SBO, HTN, who start last night with abdominal pain after have dinner. The pain was constant, diffuse, associated with nausea. Last bowel movement last night. She denied fever or chills. The patient has history of several abdominal surgeries plus radiation therapy. Lab work shows normal WBC count. CT abd/pelvis consistent with possible SBO with transition point in the distal small bowel. At my encounter she was still painful, with abdominal distention, but she refuse to have placed NGT. Allergies No Known Allergies Allergy (Verified 06/14/18 10:17) Home medications list reviewed: Yes Home Medications: Ibuprofen/Diphenhydramine HCl [Advil Pm Liqui-Gels] 500 mg PO BEDTIME 06/14/18 Losartan Potassium 75 mg PO DAILY 06/14/18 Tramadol HCl [Ultram] 50 mg PO PRN PRN 06/14/18 - Past Medical/Surgical History Diabetic: No -: Rectal Cancer -: Hysterectomy -: Bladder Suspension -: Partial colectomy -: partial colectomy-laparoscopically -: Bladder suspension -: Hysterectomy - Family History Father -: Heart disease Mother -: Cancer Notes: breast cancer - Social History Smoking Status: Never smoker Alcohol use: Yes CD- Drugs: No Caffeine use: Yes Place of Residence: Home Review of Systems 10-point ROS is otherwise unremarkable Physical Examination - Physical Exam General: Alert, In no apparent distress HEENT: Atraumatic, PERRLA, Mucous membr. moist/pink, EOMI, Sclerae nonicteric Neck: Supple, 2+ carotid pulse no bruit, No LAD, Without JVD or thyroid abnormality Respiratory: Clear to auscultation bilaterally, Normal air movement Cardiovascular: Regular rate/rhythm, Normal S1 S2 Gastrointestinal: Hypoactive, Distended, Tenderness Musculoskeletal: No tenderness Integumentary: No rashes Neurological: Normal speech, Normal strength at 5/5 x4 extr, Normal tone, Normal affect Lymphatics: No axilla or inguinal lymphadenopathy - Studies Laboratory Data (last 24 hrs) 11/04/18 01:45: Creatinine 0.76 11/04/18 01:45: WBC 6.0, Hgb 13.8, Hct 40.9, Plt Count 206 11/04/18 01:45: Sodium 144, Potassium 4.0, BUN 17, Creatinine 0.78, Glucose 124 H, Total Bilirubin 0.7, AST 17, ALT 24, Alkaline Phosphatase 91, Lipase 125 Assessment and Plan - Problems (Diagnosis) (1) SBO (small bowel obstruction) Current Visit: Yes Status: Acute (2) Abdominal pain Onset Date: 06/16/18 Current Visit: No Status: Acute Qualifiers: Abdominal location: generalized Qualified Code(s): R10.84 - Generalized abdominal pain (3) History of colorectal cancer Current Visit: Yes Status: Acute (4) HTN (hypertension) Current Visit: Yes Status: Acute Qualifiers: Hypertension type: essential hypertension Qualified Code(s): I10 - Essential (primary) hypertension - Plan The patient will be admitted to the hospital due to SBO. Will order NGT ( patient still refusing) IV fluids, bowel rest. Will consult Surgery team. - Advance Directives Does patient have a Living Will: Yes Does patient have a Durable POA for Healthcare: Yes - Code Status/Comfort Care Code Status Assessed: Yes Code Status: Full Code
[2018-11-04] MEDS ORDERED: BUPIVACA 0.25%/EPI 0.0005% MDV 50 ML VIAL ONE (07:21)
[2018-11-04] MEDS ORDERED: NA CHLORIDE 0.9% 0 ML ONE (07:21)
[2018-11-04] MEDS ORDERED: MORPHINE 2 MG/ML SYR IV PRN (07:36)
[2018-11-04] MEDS ORDERED: ACETAMINOPHEN 500 MG TAB PO PRN (07:36)
[2018-11-04] MEDS: NA CHLORIDE 0.9% 1,000 ML IV SCH ×3 (08:00→23:36)
[2018-11-04] MEDS ORDERED: ONDANSETRON 4 MG/2 ML VIAL IV PRN (08:01)
[2018-11-04 08:06] VITALS: BMI 27.4
[2018-11-04 09:20] LABS: Urine Appearance CLEAR; Urine Bilirubin NEGATIVE (NEG); Urine Blood TRACE (NEG); Urine Color YELLOW; Urine Glucose NEGATIVE (NEG); Urine Protein NEGATIVE (NEG); Urine Specific Gravity >=1.030 (1.005-1.030); Urine Urobilinogen 0.2 mg/dL (0.2-1.0)
[2018-11-04 09:30] LABS: Urine Microscopic Reflex ORDER UMIC
[2018-11-04 09:37] LABS: Urine Bacteria <20 /HPF (<20); Urine Culture Reflex Order REFLEXED; Urine RBC <5 /HPF (NONE SEEN); Urine Yeast FEW (NONE SEEN)
--- NOTE | 2018-11-04 09:58 | RAD REPORT ---
EXAM DESCRIPTION: CT - Abdomen Pelvis W Contrast - 11/04/2018 5:21 am CLINICAL HISTORY: Abd pain;Abdominal distention COMPARISON: None. TECHNIQUE: CT ABDOMEN PELVIS WITH IV CONTRAST on 11/04/2018 1:42 AM CDT This exam was performed according to our departmental dose-optimization program, which includes autom ated exposure control, adjustment of the mA and/or kV according to patient size and/or use of iterati ve reconstruction technique. FINDINGS: Lower lungs are clear. Abdomen: The liver is normal in appearance. There is no biliary dilatation. There is a small hiatal h ernia. Gallbladder is normal in appearance. General glands are normal. The pancreas and spleen are no rmal in appearance. Kidneys are mildly atrophic. There is a lower pole left renal calculus measuring 9 mm. Abdominal aorta is normal in course and caliber without aneurysm. There is no free air. There is no r etroperitoneal adenopathy. Pelvis: There are several mildly dilated distal small bowel loops, mostly in the pelvis, with some as sociated wall thickening. Distal small bowel is decompressed. Distal rectosigmoid colon resection was performed. Urinary bladder is unremarkable. There is small amount of free pelvic fluid. Appendix is normal. Skeleton: There are no acute osseous findings. No suspicious bony lesions. IMPRESSION: Possible developing small bowel obstruction. Transition point is likely in the distal sm all bowel. Electronically signed by: Mynor Will MD 11/04/2018 5:34 AM CDT Due to temporary technical issues with the PACS/Fluency reporting system, reports are being signed by the in house radiologist as a courtesy to ensure prompt reporting. The interpreting radiologist is f ully responsible for the content of the report.
[2018-11-04] MEDS ORDERED: FLUCONAZOLE 200mg IVPB 200 MG/100 ML BAG IV ONE (11:34)
--- NOTE | 2018-11-04 14:29 | P.CNS ---
Date of Consult: 11/04/18 PC: I was asked to see this 78-year-old female regards to possible small-bowel obstruction. HPC: Patient has had abdominal pain, since relocated, since yesterday. She describes it as a severe cramping episode. Says it was similar to when she had a few months ago which was found to be a partial small-bowel obstruction. PMH: See notes PSHx: Previous hemicolectomy for cancer, has had follow-up colonoscopy. SOC: No known allergies SYS REVIEW: No cough, wheeze, shortness of breath. No chest pain or palpitations. Has been on a relatively soft diet. Was out walking in over the weekend in the he prior to this episode. O/E awake alert vital signs are stable in no apparent distress at the moment HEENT: Not jaundiced Chest: Chest movement equal bilaterally ABD: Soft nontender no guarding or rebound LOCO: Intact DATA: CT scan suggests possible early partial bowel obstruction IMPRESSION: Possible small-bowel obstruction PLAN: At the moment, patient's pain has been alleviated. She also had 2 bowel movements earlier this morning. Says she no longer in any acute distress. I will give her some mineral oil, and start her on clear liquids. If she is asymptomatic tomorrow, could be discharged and followed as outpatient. Does not require surgical intervention at this moment
[2018-11-04] MEDS ORDERED: MINERAL OIL 30 ML UCUP GT ONE (14:32)
--- NOTE | 2018-11-04 16:03 | PN ---
Date of Progress Note: 11/04/2018 History: The patient seen and examined, chart reviewed, and case discussed with RN. The patient's h usband at the bedside, treatment plan explained, all questions answered. The patient is still having some abdominal discomfort and nausea. The patient had refused NG tube placement yesterday. Medications: List reviewed. Code Status: Full. Physical Examination: Vital Signs: Temperature 97.9, heart rate 65, blood pressure 126/67, respirations 17, and O2 of 96% on room air. General: Awake, alert, oriented x3. Elderly female, in some mild distress. CV: S1, S2. Regular rate and rhythm. Peripheral pulses present. Respiratory: Moving air well bilaterally. No wheezing or stridor. Gastrointestinal: Abdomen is distended. Mild tenderness to palpation. Bowel sounds absent. Extremities: No clubbing, cyanosis, or peripheral edema. Neuro: Cranial nerves 2-12 intact grossly. No focal neurological deficits. Speech is normal. Laboratory Data: UA shows budding yeast. Creatinine 0.76. Urine culture pending. Assessment And Plan: A 78-year-old female with: 1.Small bowel obstruction likely secondary to adhesions. We will continue with conservative managem ent for now. Appreciate Dr. Starkey's input. The patient refused NG tube placement. Did have episo de of vomiting this morning during the CT procedure. We will continue to keep n.p.o., hydrated with IV fluids. Encourage ambulation. 2.Acute generalized abdominal pain secondary to above. 3.History of colorectal cancer. 4.Essential hypertension, stable. We will utilize p.r.n. medications. This patient is n.p.o. 5.Incidental finding of right renal calculi, 9 mm, nonobstructing. 6.Yeast infection in the urinary bladder. We will treat with Diflucan. 7.Gastrointestinal, deep vein thrombosis prophylaxis, addressed. SA/MODL Voice ID: [id number] Report ID: [id number]
[2018-11-05 05:43] LABS: Hematocrit 36.7 % (36.0-45.0)
[2018-11-05 05:50] LABS: Absolute Lymphocytes (CBC) 0.5 K/uL (0.7-4.9); Absolute Monocytes 0.3 K/uL (0.1-1.3); Absolute Neutrophil 3.3 K/uL (1.8-8.0); Basophils % 0.3 % (0-1.3); Eosinophils % 1.7 % (0-4.4); Lymphocytes % 11.7 % (15.3-44.8); MPV 8.6 fL (7.6-11.3); Monocytes % 8.1 % (3.3-12.3)
[2018-11-05 05:56] LABS: Potassium 3.9 mmol/L (3.5-5.1)
[2018-11-05] MEDS: NA CHLORIDE 0.9% 1,000 ML IV SCH (07:36)
[2018-11-05 08:41] VITALS: O2SAT 95
[2018-11-05] MEDS ORDERED: RANITIDINE 150 MG TABLET PO SCH (09:00)
[2018-11-05] MEDS ORDERED: POTASSIUM CL SA 10 MEQ TAB PO ONE (09:00)
--- NOTE | 2018-11-05 09:35 | RAD REPORT ---
EXAM DESCRIPTION: RAD - Abdomen Acute Series - 11/05/2018 9:28 am CLINICAL HISTORY: small bowel obstruction COMPARISON: CHEST SINGLE VIEW dated 11/20/2013; CHEST SINGLE VIEW dated 11/19/2013; Abdomen Pelvis W Contrast dated 11/04/2018; Abdomen Pelvis W Contrast dated 06/14/2018 FINDINGS: The lungs are clear. The heart is normal in size. No subdiaphragmatic free air seen. Contrast is seen in the colon. Small bowel obstruction is not present. No pathologic calcifications. IMPRESSION: No evidence of small bowel obstruction.
[2018-11-05] MEDS ORDERED: CEFTRIAXONE/SWI 1gm 1 GM/10 ML SYR IVP ONE (15:00)
[2018-11-05 17:23] VITALS: BP 165/78; TEMP 98.3
--- NOTE | 2018-11-06 11:44 | DS ---
Date of Discharge: 11/05/2018 Mattress Filler: Dr. Starkey with General Surgery. Procedures: None. Discharge Diagnoses: 1.Small-bowel obstruction, resolved. 2.Acute generalized abdominal pain secondary to above, resolved. 3.History of colorectal cancer. 4.Essential hypertension. Hospital Course: The patient is a 78-year-old female with history of colorectal cancer, hypertension , multiple small-bowel obstructions, who comes in with abdominal pain, nausea, vomiting. The patient was found to have small-bowel obstruction with transition point at the distal small bowel on CT scan . She was kept n.p.o., started on IV fluids, and the patient, however, refused NG tube placement. T he patient did have trace leukocytes on her UA and budding yeast. The patient was treated with Diflu can x1 and Rocephin. The patient was encouraged to ambulate. She did well. She was able to pass ga s. She was then started on clear liquid diet. Dr. Starkey with General Surgery was also consulted. He did not recommend any surgical intervention at this point. The patient overall did well. During the course of the hospital stay, her urine culture did grow out gram-negative rods with ID pending. Her acute abdominal series was repeated, which did not show any further small-bowel obstruction. Th e patient was then advanced to GI soft diet. The patient was then discharged in a stable condition a fter she was able to tolerate her diet. Medications: As per medication reconciliation list. Followup: Follow up with primary care physician in 2-3 days. Return to ER for worsening condition. Diet: Archer diet. Activity: As tolerated. Physical Examination: General: Awake, alert, oriented x3. No acute distress, elderly female. CV: S1, S2. No murmurs. Respiratory: Moving air well bilaterally. Abdomen: Soft, nontender, nondistended. Positive bowel sounds. Extremities: No clubbing, cyanosis, or edema. Neuro: Nonfocal. Total time spent discharging the patient was 35 minutes. /YARIEL Voice ID: [id number] Report ID: [id number]
== END 2018-11-05 20:35 | disposition home or self-care (01) | DRG 389 ==
LOC: ER 01:18 → ERHOLD 06:16 → 4TH 07:39
PROVIDERS: ADMIT Internal Medicine; ATTEND Internal Medicine
DX: K56.609 Unspecified intestinal obstruction, unspecified as to partial versus complete obstruction (principal); B37.49 Other urogenital candidiasis; I10 Essential (primary) hypertension; Z85.038 Personal history of other malignant neoplasm of large intestine; N20.0 Calculus of kidney
CPT/HCPCS: 36415; 74022; 74177; 80048; 80076; 81003; 81015; 83690; 83735; 85025; 87077; 87086; 87088; 87186; 96361; 96374; 96375; 99285; J0696; J1450; J2405; J3010; J7030; Q9967

== ENCOUNTER 2020-05-30 22:28 | Inpatient (IN) | payer OTHER ==
[2020-05-30 23:09] LABS: Absolute Lymphocytes (CBC) 0.6 K/uL (0.7-4.9); Basophils % 0.5 % (0-1.3); Hematocrit 41.4 % (36.0-45.0); Lymphocytes % 7.2 % (15.3-44.8); MPV 9.1 fL (7.6-11.3); RBC Red Blood Cell Count 4.45 M/uL (3.86-4.86)
[2020-05-30 23:20] LABS: Albumin 4.2 g/dL (3.4-5.0); Bilirubin Direct 0.1 mg/dL (0-0.2); Bilirubin Total 0.7 mg/dL (0.2-1.0); Potassium 3.7 mmol/L (3.5-5.1); Protein, Total 7.4 g/dL (6.4-8.2)
[2020-05-30] MEDS ORDERED: ONDANSETRON 4 MG/2 ML VIAL ONE (23:21)
[2020-05-30] MEDS ORDERED: MORPHINE 4 MG/ML SYR ONE (23:21)
--- NOTE | 2020-05-31 00:54 | ER ---
Nurse's Notes [facility] Name: Candice Silva Age: 79 yrs Sex: Female : 1940 Arrival Date: 05/30/2020 Time: 22:31 Bed 3 Private MD: Diagnosis: Intestinal adhesions [bands] with obstruction (postprocedural) (postinfection) Presentation: 05/30 22:55 Chief complaint: Patient states: my abdomen is hurting started an hour ago. I drink rr5 water and 7up but it did not went away. had a history of colon blockage. no nausea/ vomiting reported. Coronavirus screen: Client denies travel out of the [place] in the last 14 days. At this time, the client does not indicate any symptoms associated with coronavirus-19. Ebola Screen: Patient negative for fever greater than or equal to 101.5 degrees Fahrenheit, and additional compatible Ebola Virus Disease symptoms Patient denies exposure to infectious person. Patient denies travel to an Ebola-affected area in the 21 days before illness onset. Initial Sepsis Screen: Does the patient meet any 2 criteria? No. Patient's initial sepsis screen is negative. Does the patient have a suspected source of infection? No. Patient's initial sepsis screen is negative. Risk Assessment: Do you want to hurt yourself or someone else? Patient reports no desire to harm self or others. Onset of symptoms was May 30, 2020. 22:55 Method Of Arrival: Ambulatory rr5 22:55 Acuity: HAILEY 3 rr5 Historical: - Allergies: 23:00 tree pollen; ea - Home Meds: 23:00 Tramadol Oral as needed [Active]; losartan Oral once daily [Active]; ea - PMHx: 23:00 Hypertension; colon cancer; bowel obstruction; Arthritis; ea - PSHx: 23:00 colon sx; Hysterectomy; ea - Immunization history:: Adult Immunizations unknown, Pneumococcal vaccine status is unknown, Adult Immunizations unknown. - Social history:: Smoking status: unknown Patient uses alcohol, occasionally. Patient/guardian denies using alcohol, street drugs, The patient lives with family, Smoking status: Patient denies any tobacco usage or history of. - Family history:: not pertinent. Screenin:58 Abuse screen: Denies threats or abuse. Nutritional screening: No deficits noted. ea Tuberculosis screening: No symptoms or risk factors identified. Fall Risk IV access (20 points). Assessment: 23:00 General: Appears in no apparent distress. uncomfortable, ill, Behavior is calm, rr5 cooperative, appropriate for age. Pain: Complains of pain in epigastric area Pain currently is 9 out of 10 on a pain scale. Quality of pain is described as aching, Pain began gradually, Is intermittent. Neuro: Level of Consciousness is awake, alert, obeys commands, Oriented to person, place, time, situation. Cardiovascular: Capillary refill < 3 seconds Patient's skin is warm and dry. Respiratory: Airway is patent Respiratory effort is even, unlabored, Respiratory pattern is regular, symmetrical. GI: Abdomen is round non-distended, Abdomen is tender to palpation Guarding noted Reports upper abdominal pain, Patient currently denies nausea, vomiting. : No signs and/or symptoms were reported regarding the genitourinary system. EENT: No signs and/or symptoms were reported regarding the EENT system. Derm: Skin is intact, is healthy with good turgor, Skin temperature is warm. Musculoskeletal: Circulation, motion, and sensation intact. Capillary refill < 3 seconds. 05/31 00:18 Reassessment: Patient appears in no apparent distress at this time. Patient is alert, rr5 oriented x 3, equal unlabored respirations, skin warm/dry/pink. Patient states feeling better. Patient states symptoms have improved. 01:51 Reassessment: Patient and/or family updated on plan of care and expected duration. Pain ea level reassessed. Patient is alert, oriented x 3, equal unlabored respirations, skin warm/dry/pink. Report called to receiving nurse. Vital Signs: 05/30 22:55 BP 166 / 79; Pulse 81; Resp 17; Temp 98.9; Pulse Ox 98% ; Weight 77.11 kg; Height 5 ft. rr5 6 in. (167.64 cm); Pain 9/10; 05/31 01:50 BP 160 / 68; Pulse 80; Resp 18; Temp 98.6; Pulse Ox 99% on R/A; ea 05/30 22:55 Body Mass Index 27.44 (77.11 kg, 167.64 cm) rr5 ED Course: 05/30 22:31 Patient arrived in ED. am2 22:44 Nora Sung MD is Attending Physician. ma2 22:47 Alessandro Melton RN is Primary Nurse. rr5 22:58 Inserted saline lock: 20 gauge in right antecubital area, using aseptic technique. ea Blood collected. 22:58 Arm band placed on right wrist. Patient placed in an exam room, on a stretcher, on ea pulse oximetry. 22:59 Triage completed. rr5 22:59 Patient has correct armband on for positive identification. Placed in gown. Bed in low ea position. Call light in reach. Side rails up X2. 05/31 00:53 Alessandro Mchugh MD is Hospitalizing Provider. ma2 01:46 No provider procedures requiring assistance completed. Patient admitted, IV remains in rr5 place. intact, No redness/swelling at site. Administered Medications: 05/30 23:13 Drug: morphine 4 mg {Note: rass 0.} Route: IVP; Site: right antecubital; ea 05/31 01:51 Follow up: Response: No adverse reaction; Pain is decreased ea 05/30 23:14 Drug: Zofran (Ondansetron) 4 mg Route: IVP; Site: right antecubital; ea 05/31 01:51 Follow up: Response: No adverse reaction ea 02:00 Drug: morphine 4 mg Route: IVP; Site: right antecubital; ea 02:00 Drug: Zofran (Ondansetron) 4 mg Route: IVP; Site: right antecubital; ea Outcome: 00:53 Decision to Hospitalize by Provider. ma2 01:49 Admitted to Med/surg accompanied by tech, room 213, with chart, Report called to ea Receiving nurse on second floor 01:49 Condition: stable 01:49 Instructed on the need for admit, Demonstrated understanding of instructions. 02:18 Patient left the ED. ea Signatures: Dorothy Walls Elena, RN Nora Herrera ea, MD MD [facility] Alessandro Melton, KELSEY RN rr5
--- NOTE | 2020-05-31 00:54 | EDPHYS ---
Physician Documentation [facility] Name: Candice Silva Age: 79 yrs Sex: Female : 1940 Arrival Date: 05/30/2020 Time: 22:31 Bed 3 Private MD: ED Physician Nora Sung HPI: 05/31 00:50 This 79 yrs old Female presents to ER via Ambulatory with complaints of ma2 Abdominal Pain. 00:50 The patient presents with abdominal pain. The symptoms do not radiate. Associated signs ma2 and symptoms: Pertinent positives: Pertinent negatives: nausea and vomiting, blood in stools, diarrhea, fever. Severity of pain: At its worst the pain was moderate in the emergency department the pain is unchanged. The patient has experienced similar episodes in the past. Historical: - Allergies: 05/30 23:00 tree pollen; ea - Home Meds: 23:00 Tramadol Oral as needed [Active]; losartan Oral once daily [Active]; ea - PMHx: 23:00 Hypertension; colon cancer; bowel obstruction; Arthritis; ea - PSHx: 23:00 colon sx; Hysterectomy; ea - Immunization history:: Adult Immunizations unknown, Pneumococcal vaccine status is unknown, Adult Immunizations unknown. - Social history:: Smoking status: unknown Patient uses alcohol, occasionally. Patient/guardian denies using alcohol, street drugs, The patient lives with family, Smoking status: Patient denies any tobacco usage or history of. - Family history:: not pertinent. ROS: 05/31 00:50 Constitutional: Negative for fever, chills, and weight loss. ma2 All other systems are negative. Exam: 00:50 Constitutional: This is a well developed, well nourished patient who is awake, alert, ma2 and in no acute distress. Head/Face: Normocephalic, atraumatic. Eyes: Pupils equal round and reactive to light, extra-ocular motions intact. Lids and lashes normal. Conjunctiva and sclera are non-icteric and not injected. Cornea within normal limits. Periorbital areas with no swelling, redness, or edema. ENT: Nares patent. No nasal discharge, no septal abnormalities noted. Tympanic membranes are normal and external auditory canals are clear. Oropharynx with no redness, swelling, or masses, exudates, or evidence of obstruction, uvula midline. Mucous membranes moist. Neck: Trachea midline, no thyromegaly or masses palpated, and no cervical lymphadenopathy. Supple, full range of motion without nuchal rigidity, or vertebral point tenderness. No Meningismus. Chest/axilla: Normal chest wall appearance and motion. Nontender with no deformity. No lesions are appreciated. Cardiovascular: Regular rate and rhythm with a normal S1 and S2. No gallops, murmurs, or rubs. Normal PMI, no JVD. No pulse deficits. Respiratory: Lungs have equal breath sounds bilaterally, clear to auscultation and percussion. No rales, rhonchi or wheezes noted. No increased work of breathing, no retractions or nasal flaring. Abdomen/GI: midly destended, otherwise Soft, non-tender, with normal bowel sounds. No tympany. No guarding or rebound. No evidence of tenderness throughout. Back: No spinal tenderness. No costovertebral tenderness. Full range of motion. Skin: Warm, dry with normal turgor. Normal color with no rashes, no lesions, and no evidence of cellulitis. Neuro: Awake and alert, GCS 15, oriented to person, place, time, and situation. Cranial nerves II-XII grossly intact. Motor strength 5/5 in all extremities. Sensory grossly intact. Cerebellar exam normal. Normal gait. Vital Signs: 05/30 22:55 BP 166 / 79; Pulse 81; Resp 17; Temp 98.9; Pulse Ox 98% ; Weight 77.11 kg; Height 5 ft. rr5 6 in. (167.64 cm); Pain 9/10; 05/31 01:50 BP 160 / 68; Pulse 80; Resp 18; Temp 98.6; Pulse Ox 99% on R/A; ea 05/30 22:55 Body Mass Index 27.44 (77.11 kg, 167.64 cm) rr5 MDM: 05/30 22:44 Patient medically screened. ma2 05/31 00:50 Differential diagnosis: Irritable bowel syndrome, pancreatitis, Peptic Ulcer Disease, ma2 Peritonitis. Data reviewed: vital signs, nurses notes. Counseling: I had a detailed discussion with the patient and/or guardian regarding: the historical points, exam findings, and any diagnostic results supporting the discharge/admit diagnosis, the presence of at least one elevated blood pressure reading (>120/80) during this emergency department visit, the need for further work-up and treatment in the hospital. Response to treatment: There is no appreciated change of the patient's symptoms at this time. 05/30 22:46 Order name: Basic Metabolic Panel; Complete Time: 23:27 ma2 05/30 22:46 Order name: CBC with Diff ma2 05/30 22:46 Order name: Hepatic Function; Complete Time: 23:27 ma2 05/30 22:46 Order name: Lipase; Complete Time: 23:27 ma2 05/30 23:34 Order name: Manual Differential EDMD 05/31 01:44 Order name: COVID-19 ea 05/30 22:46 Order name: IV Saline Lock; Complete Time: 22:58 ma2 05/30 22:46 Order name: Labs collected and sent; Complete Time: 22:58 ma2 05/30 22:46 Order name: CT Abd/Pelvis - IV Contrast Only vt2 Administered Medications: 05/30 23:13 Drug: morphine 4 mg {Note: rass 0.} Route: IVP; Site: right antecubital; 05/31 01:51 Follow up: Response: No adverse reaction; Pain is decreased ea 05/30 23:14 Drug: Zofran (Ondansetron) 4 mg Route: IVP; Site: right antecubital; ea 05/31 01:51 Follow up: Response: No adverse reaction ea 02:00 Drug: morphine 4 mg Route: IVP; Site: right antecubital; ea 02:00 Drug: Zofran (Ondansetron) 4 mg Route: IVP; Site: right antecubital; ea Disposition: 05/31/20 00:53 Hospitalization ordered by Alessandro Mchugh for Inpatient Admission. Preliminary diagnosis is Intestinal adhesions [bands] with obstruction (postprocedural) (postinfection). - Bed requested for Telemetry/MedSurg (Inpatient). - Status is Inpatient Admission. ea - Condition is Stable. - Problem is new. - Symptoms are unchanged. Signatures: Dispatcher [employer] EDMD Jenni Vale RN RN mw Attema, Lee, SANDRA-C PHOSPHORIC ACID OPERATOR-Cla1 Estefany Escobedo RN RN ea Alzahri, Mohammad, MD MD ma2 Melton, Alessandro, RN RN rr5 Corrections: (The following items were deleted from the chart) 01:23 00:53 Hospitalization Ordered by Alessandro Mchugh MD for Inpatient Admission. Preliminary mw diagnosis is Intestinal adhesions [bands] with obstruction (postprocedural) (postinfection). Bed requested for Telemetry/MedSurg (Inpatient). Status is Inpatient Admission. Condition is Stable. Problem is new. Symptoms are unchanged. ma2 02:18 01:23 05/31/2020 00:53 Hospitalization Ordered by Alessandro Mchugh MD for Inpatient ea Admission. Preliminary diagnosis is Intestinal adhesions [bands] with obstruction (postprocedural) (postinfection). Bed requested for Telemetry/MedSurg (Inpatient). Status is Inpatient Admission. Condition is Stable. Problem is new. Symptoms are unchanged. mw
[2020-05-31 01:47] LABS: Blood Morphology Comment NOT SEEN (NOT SEEN); Platelet Estimate ADEQ
[2020-05-31] MEDS ORDERED: MORPHINE 4 MG/ML SYR ONE (02:14)
[2020-05-31] MEDS ORDERED: ONDANSETRON 4 MG/2 ML VIAL ONE (02:21)
[2020-05-31] MEDS ORDERED: MORPHINE 2 MG/ML SYR IV PRN (02:28)
[2020-05-31] MEDS ORDERED: ONDANSETRON 4 MG/2 ML VIAL IV PRN (02:28)
--- NOTE | 2020-05-31 02:29 | P.HP ---
Certification for Inpatient Patient admitted to: Inpatient With expected LOS: >2 Midnights Patient will require the following post-hospital care: None Practitioner: I am a practitioner with admitting privileges, knowledge of patient current condition, hospital course, and medical plan of care. Services: Services provided to patient in accordance with Admission requirements found in Title 42 Section 412.3 of the Code of Federal Regulations <Kingston Brown - Last Filed: 05/31/20 02:25> Patient History Date of Service: 05/31/20 Primary Care Provider: Dr. Pastor Reason for admission: Small-bowel obstruction History of Present Illness: 79-year-old female with history of hypertension and colon cancer presents to the emergency department for abdominal pain. Patient with history of colonic resection approximately [address] Gonzales at [facility]. Patient reports last bowel movement with formed stools this morning, had 1 episode of diarrhea this evening. Reports eating cube steak this evening in following this having moderate abdominal pain. Patient reports this feels similar to previous times that she has had small bowel obstructions, patient has not required nasogastric tube insertion or surgical intervention with any for previous obstructions stating that she usually recovers pretty quickly. Workup in the emergency department reveals white blood cell count 8.7 hematocrit 41 hemoglobin 13.9 chemistries within normal limits CT demonstrates developing lower pelvic small bowel obstruction. ED provider wishes to admit patient for further evaluation and management. When I saw the patient in the emergency department she is awake, alert, oriented x3. Patient having mild generalized abdominal pain, no significant tenderness on exam, no guarding, no rigidity. Patient will be admitted for further evaluation and management. - Past Medical/Surgical History Diabetic: No -: colon cancer -: Hypertension -: partial colectomy-laparoscopically -: Bladder suspension -: Hysterectomy Psychosocial/ Personal History: Patient is retired and lives with her - Family History Father -: Heart disease Mother -: Cancer Notes: breast cancer - Social History Smoking Status: Never smoker Alcohol use: Yes CD- Drugs: No Caffeine use: Yes Place of Residence: Home <KevinKingston - Last Filed: 05/31/20 02:25> Date of Service: 05/31/20 <Alessandro Mchugh - Last Filed: 05/31/20 17:10> Allergies No Known Allergies Allergy (Verified 06/14/18 10:17) Home Medications: Cholecalciferol (Vitamin D3) [Vitamin D 5,000 Iu Cap] 5,000 unit PO DAILY 05/31/20 Fluticasone Propionate [Flovent Diskus] 1 spray NS BID 05/31/20 Loratadine [Claritin] 10 mg PO DAILY 05/31/20 Metoprolol Tartrate 50 mg PO DAILY 05/31/20 Tramadol HCl [Ultram] 50 mg PO DAILY PRN 05/31/20 Review of Systems Unremarkable Gastrointestinal: Nausea, Vomiting, Abdominal Pain <Kingston Brown - Last Filed: 05/31/20 02:25> Physical Examination - Physical Exam General: Alert, In no apparent distress, Oriented x3 HEENT: Atraumatic, Normocephalic, PERRLA Neck: Supple Respiratory: Clear to auscultation bilaterally, Normal air movement Cardiovascular: No edema, Regular rate/rhythm, Normal S1 S2 Capillary refill: <2 Seconds Gastrointestinal: Hypoactive, Soft and benign, No ascites, No tenderness, No masses, No rebound, No guarding, Distended (Mild abdominal distention but abdomen is soft) Musculoskeletal: No contractures, No erythema, No tenderness Integumentary: No tenderness/swelling, No erythema, No warmth Neurological: Normal speech, Normal strength at 5/5 x4 extr, Normal tone, Sensation intact Lymphatics: No axilla or inguinal lymphadenopathy - Studies Laboratory Data (last 24 hrs) 05/30/20 22:54: WBC 8.7, Hgb 13.9, Hct 41.4, Plt Count 240 05/30/20 22:54: Sodium 142, Potassium 3.7, BUN 18, Creatinine 0.99, Glucose 121 H, Total Bilirubin 0.7, AST 16, ALT 22, Alkaline Phosphatase 84, Lipase 120 <Kingston Brown - Last Filed: 05/31/20 02:25> - Studies Laboratory Data (last 24 hrs) 05/30/20 22:54: WBC 8.7, Hgb 13.9, Hct 41.4, Plt Count 240 05/30/20 22:54: Sodium 142, Potassium 3.7, BUN 18, Creatinine 0.99, Glucose 121 H, Total Bilirubin 0.7, AST 16, ALT 22, Alkaline Phosphatase 84, Lipase 120 <Alessandro Mchugh - Last Filed: 05/31/20 17:10> Assessment and Plan - Plan Assessment Small-bowel obstruction Hypertension Plan Small-bowel obstruction: NPO at this time, will insert nasogastric tube for increasing pain, distention, vomiting. Continue with IV fluids. General surger y consult in place. Patient white blood cell count within normal limits, no severe pain, vital signs stable at this time. Will hold off on antibiotic therapy at this time. DVT prophylaxis with SCDs. P.r.n. pain and nausea medications. Hypertension: Obtain and continue home medications. Blood pressure stable at this time. Discharge Plan: Home Plan to discharge in: 48 Hours - Advance Directives Does patient have a Living Will: No Does patient have a Durable POA for Healthcare: No - Code Status/Comfort Care Code Status Assessed: Yes (Full code) Critical Care: No Time Spent Managing Pts Care (In Minutes): 55 <Kingston Brown - Last Filed: 05/31/20 02:25> - Plan Plan of care discussed with Kingston Brown, and I agree with the management plan as noted above. Small bowel obstruction. Continue NPO, general surgery consulted Low threshold for NG tube <Alessandro Mchugh - Last Filed: 05/31/20 17:10>
[2020-05-31] MEDS: NA CHLORIDE 0.9% 1,000 ML IV SCH ×3 (02:59→23:25)
[2020-05-31] MEDS ORDERED: HYDROMORPHONE HCL 0.5 MG/0.5 ML INJ IV ONE (03:22)
[2020-05-31 04:44] VITALS: BMI 28.0
[2020-05-31 06:09] LABS: Absolute Lymphocytes (CBC) 0.4 K/uL (0.7-4.9); Basophils % 0.2 % (0-1.3); Hematocrit 43.3 % (36.0-45.0); Lymphocytes % 3.6 % (15.3-44.8); MPV 8.9 fL (7.6-11.3); RBC Red Blood Cell Count 4.59 M/uL (3.86-4.86)
[2020-05-31 06:25] LABS: Albumin 3.8 g/dL (3.4-5.0); Bilirubin Total 0.8 mg/dL (0.2-1.0); Magnesium 1.9 mg/dL (1.8-2.4); Potassium 3.7 mmol/L (3.5-5.1); Protein, Total 7.2 g/dL (6.4-8.2)
[2020-05-31] MEDS ORDERED: INFLUENZA VACCINE (for 3y+) 0.5 ML DOSE IMVAC ONE (08:00)
[2020-05-31] MEDS ORDERED: KCL 20 MEQ/100 mL IVPB 20 MEQ/100 ML BAG IV SCH (09:00)
[2020-05-31] MEDS ORDERED: HYDROMORPHONE HCL 0.5 MG/0.5 ML INJ IV PRN (09:05)
[2020-05-31 10:55] VITALS: O2SAT 95
--- NOTE | 2020-05-31 11:06 | CON ---
Date of Consultation: 05/31/2020 Reason For Consultation: Small bowel obstruction. History Of Present Illness: The patient is a 79-year-old female, who comes in with acute onset of lo wer abdominal pain associated with nausea and vomiting. She did have a bowel movement prior to comin g to the hospital as well as diarrhea and she passed gas last night. She states that she had 1 episo de of vomiting after she was given some medicine. She has had similar episodes in the last 5 years s everal times following colon resection for colon cancer, which was done laparoscopically by Dr. Gonzales. She states that she has only required NG tube 1 time and it recovered with left conservative manage ment. She does not want any NG tube at this time. She is awake, alert, nauseated, but no vomiting c urrently. No diarrhea, no constipation currently. No blood in her stool. No dysuria or hematuria. No sore throat, runny nose, cough, headaches, or dizziness. No chest pain. No fever or chills. Review of Systems: Otherwise unremarkable. Past Medical History: Significant for colon cancer, hypertension. Past Surgical History: Significant for laparoscopic colectomy, partial bladder suspension, and hyste rectomy. Allergies: NONE. Social History: The patient does not smoke. Drinks occasionally. Family History: Noncontributory. Physical Examination: Vital Signs: Stable. She is afebrile. General: She is awake, alert, and oriented x3. Head and Neck: Cranial nerves 2 through 12 are grossly within normal limits. No neck masses. No JV D. Throat clear. Neck is supple. Chest: Clear. Heart: S1 and S2. Abdomen: Soft, slightly distended. Minimal diffuse tenderness. No rebound, rigidity, or guarding. Hypoactive bowel sounds. Extremities: Adequately perfused. Nontender. Neuro: Nonfocal. Diagnostic Data: CT of the abdomen and pelvis reviewed, essentially shows early small bowel obstruct ion, no free air, no free fluid, and the obstruction site is in the pelvis. Assessment: Small bowel obstruction. Recommendations: Continue n.p.o. If she vomits, I recommend an NG tube. We will get abdominal x-ra y flat and upright to see if the obstruction has gotten worse and at this point, I would recommend em piric antibiotics. We will follow the patient while in the hospital. /MODL Voice ID: [id number] Report ID: [id number]
--- NOTE | 2020-05-31 11:15 | RAD REPORT ---
EXAM DESCRIPTION: RAD - Abdomen W Erect - 05/31/2020 11:06 am CLINICAL HISTORY: Abdominal pain FINDINGS: Small bowel caliber has diminished. Air and stool is present within portions of the colon . No free air Improvement in the small bowel obstruction since the prior exam
--- NOTE | 2020-05-31 15:12 | RAD REPORT ---
EXAM DESCRIPTION: CT - Abdomen Pelvis W Contrast - 05/31/2020 6:58 am CLINICAL HISTORY: ABD PAIN COMPARISON: None. TECHNIQUE: CT ABDOMEN PELVIS WITH IV CONTRAST on 05/30/2020 10:46 PM [employer]OL[employer] COURSE MECHANIC This exam was performed according to our departmental dose-optimization program, which includes autom ated exposure control, adjustment of the mA and/or kV according to patient size and/or use of iterati ve reconstruction technique. FINDINGS: Lower lungs are clear. Abdomen: The liver is normal in appearance. There is no biliary dilatation. Gallbladder is normal in appearance. The pancreas and spleen are normal in appearance. Adrenal glands are normal. There is a l ower pole left renal calculus measuring 9 mm. There is mild fullness of both renal collecting systems without definite hydronephrosis. Abdominal aorta is normal in course and caliber without aneurysm. There is no free air. There is no r etroperitoneal adenopathy. Pelvis: Distal colon resection and anastomosis was performed. There are multiple dilated small bowel loops within the deep pelvis, extending into the posterior lower pelvis. Distal small bowel is relati vely decompressed. Urinary bladder is unremarkable. There is no free fluid. Appendix is normal. Skeleton: There are no acute osseous findings. No suspicious bony lesions. IMPRESSION: Suspect developing lower pelvic small bowel obstruction. Electronically signed by: Mynor Will MD 05/31/2020 12:01 AM [employer] COU[employer]SE MECHANIC Due to temporary technical issues with the PACS/Fluency reporting system, reports are being signed by the in house radiologists without review as a courtesy to insure prompt reporting. The interpreting radiologist is fully responsible for the content of the report.
--- NOTE | 2020-05-31 17:12 | P.PN ---
Date of Service: 05/31/20 Patient seen this morning With nausea/vomiting, attributes this to her morphine, states that morphine has done this before No appetite, some abdominal discomfort, reports no distension On exam: +nausea, lungs CTAB, Heart: RRR, abd: soft, mild TTP, mid distention, no rebound tenderness. Ext: no edema A/P continue NPO, IVF switch morphine to dilaudid will review with general surgery possibly advance to CLD once passing flatus/BM Dispo: anticipate dc home in 24-48hrs
[2020-06-01 06:04] LABS: Absolute Lymphocytes (CBC) 0.5 K/uL (0.7-4.9); Basophils % 0.4 % (0-1.3); Hematocrit 38.1 % (36.0-45.0); Lymphocytes % 9.4 % (15.3-44.8); MPV 9.2 fL (7.6-11.3); RBC Red Blood Cell Count 4.11 M/uL (3.86-4.86)
[2020-06-01 06:09] LABS: ALT/SGPT 14 U/L (12-78); AST/SGOT 14 U/L (15-37); Albumin 3.1 g/dL (3.4-5.0); Alkaline Phosphatase 46 U/L (45-117); BUN Blood Urea Nitrogen 10 mg/dL (7-18); Bicarbonate 27 mmol/L (21-32); Bilirubin Total 0.9 mg/dL (0.2-1.0); Glucose Level 100 mg/dL (74-106); Protein, Total 5.9 g/dL (6.4-8.2); Sodium Level 146 mmol/L (136-145)
[2020-06-01] MEDS: NA CHLORIDE 0.9% 1,000 ML IV SCH (08:03)
--- NOTE | 2020-06-01 09:35 | RAD REPORT ---
EXAM DESCRIPTION: RAD - Abdomen W Erect - 06/01/2020 8:47 am CLINICAL HISTORY: SBO COMPARISON: Abdomen W Erect dated 05/31/2020; Abdomen Pelvis W Contrast dated 05/30/2020 TECHNIQUE: Supine and upright views of the abdomen were obtained. FINDINGS: Dilated small bowel loops in the mid abdomen are similar or slightly worse in appearance f rom the May 31 abdomen films. Air and stool are present in nondilated colon. There is no free ai r or pneumatosis present. No suspicious calcifications. Numerous phleboliths are seen in the pelvis. Lower pole left renal calc ulus noted. IMPRESSION: Small bowel dilatation pattern is similar or slightly worse than May 31. No free air or pneumatosis.
--- NOTE | 2020-06-01 10:33 | PN ---
Date of Progress Note: 06/01/2020 Subjective: Patient is awake, alert. No pain. Having flatus and small bowel movement. Tolerating clear liquids. Labs are stable. Afebrile. Abdominal x-ray shows no significant change between the 2. The x-ray may be a little worse than yesterday, but there is no free air or pneumatosis. Objective: ABDOMEN: Soft, nondistended, nontender. Positive bowel sounds. Much less distended valeria n yesterday. Assessment: Small bowel obstruction, resolving. Recommendation: Slowly advance diet if tolerated. Patient cleared from surgery standpoint for disch arge. Advised to eat small frequent meals. Avoid foods that are hard to digest. /MODL Voice ID: [id number] Report ID: [id number]
--- NOTE | 2020-06-01 12:42 | P.DS ---
Admission Date: 05/31/20 Discharge Date: 06/01/20 Primary Care Provider: Dr. Pastor Disposition: ROUTINE DISCHARGE Discharge Condition: GOOD Reason for Admission: Small-bowel obstruction Consultations: General Surgery - Dr. Benson Procedures: CT abdomen (05/30): Suspect developing lower pelvic small bowel obstruction. Abdominal x-ray (05/31): Improvement in small bowel obstruction Abdominal x-ray (06/01): Small bowel dilatation pattern similar to 05/21 Problem List Small-bowel obstruction Hypertension Brief History of Present Illness: 79yo F, PMH: HTN, Colon CA, prior SBO, presented to ED for abdominal pain. CT was concerning for SBO. General Surgery was consulted and patient was admitted for further management. Hospital Course: Patient was medically managed and had improvement in her symptoms. She was slowly advanced after passing flatus and a small BM. She tolerated a soft diet without nausea/vomiting. She was discharged home. Vital Signs/Physical Exam: Temp Pulse Resp BP Pulse Ox 97.1 F 69 18 145/68 H 98 06/01/20 08:00 06/01/20 08:00 06/01/20 08:00 06/01/20 08:00 06/01/20 08:00 General: Alert, In no apparent distress HEENT: Sclerae nonicteric Respiratory: Clear to auscultation bilaterally Cardiovascular: No edema, Regular rate/rhythm Gastrointestinal: Soft and benign, Non-distended, No tenderness Musculoskeletal: No tenderness Integumentary: No rashes Neurological: Normal speech, Normal affect Laboratory Data at Discharge: WBC 5.7 K/uL (4.3-10.9) D 06/01/20 05:37 Hgb 12.8 g/dL (12.0-15.0) 06/01/20 05:37 Hct 38.1 % (36.0-45.0) 06/01/20 05:37 Plt Count 176 K/uL (152-406) 06/01/20 05:37 Sodium 146 mmol/L (136-145) H 06/01/20 05:37 Potassium 4.0 mmol/L (3.5-5.1) 06/01/20 05:37 BUN 10 mg/dL (7-18) 06/01/20 05:37 Creatinine 0.56 mg/dL (0.55-1.3) 06/01/20 05:37 Glucose 100 mg/dL (74-106) 06/01/20 05:37 Magnesium 2.0 mg/dL (1.8-2.4) 06/01/20 05:37 Total Bilirubin 0.9 mg/dL (0.2-1.0) 06/01/20 05:37 AST 14 U/L (15-37) L 06/01/20 05:37 ALT 14 U/L (12-78) 06/01/20 05:37 Alkaline Phosphatase 46 U/L (45-117) 06/01/20 05:37 Lipase 120 U/L (73-393) 05/30/20 22:54 Home Medications: Cholecalciferol (Vitamin D3) [Vitamin D 5,000 IU Cap*] 5,000 unit PO DAILY 05/31/20 Fluticasone Propionate [Flovent Diskus] 1 spray NS BID 05/31/20 Loratadine [Claritin*] 10 mg PO DAILY 05/31/20 Metoprolol Tartrate 50 mg PO DAILY 05/31/20 Tramadol HCl [Ultram] 50 mg PO DAILY PRN 05/31/20 Patient Discharge Instructions: Follow up with your PCP within 1-2 weeks. Follow up with your surgeon as needed. Eat small, frequent meals. Chew food well. Diet: Regular (small meals) Activity: Ad ashley Followup: BRIGIDO FOFANA [Primary Care Provider] - Time spent managing pt's care (in minutes): 35
[2020-06-01 14:15] VITALS: BP 159/68; TEMP 97.7
== END 2020-06-01 13:57 | disposition home or self-care (01) | DRG 390 ==
LOC: ER 22:28 → ERHOLD 05-31 01:48 → 2ND 05-31 01:57
PROVIDERS: ADMIT Hospitalist; ATTEND Hospitalist
DX: K56.609 Unspecified intestinal obstruction, unspecified as to partial versus complete obstruction (principal); I10 Essential (primary) hypertension; Z79.899 Other long term (current) drug therapy; Z91.09 Other allergy status, other than to drugs and biological substances; Z85.038 Personal history of other malignant neoplasm of large intestine; Z90.710 Acquired absence of both cervix and uterus; Z20.828 Contact with and (suspected) exposure to other viral communicable diseases
CPT/HCPCS: 36415; 74019; 74177; 80048; 80053; 80076; 83690; 83735; 85025; 96374; 96375; 99285; J1170; J2405; J3480; J7030; Q9967; U0003

== ENCOUNTER 2021-02-15 05:53 | Observation (INO) | payer OTHER ==
--- NOTE | 2021-02-08 11:13 | RAD REPORT ---
EXAM DESCRIPTION: RAD - Chest Pa And Lat (2 Views) - 02/08/2021 10:15 am CLINICAL HISTORY: PreOp COMPARISON: Abdomen Acute Series dated 11/05/2018; CHEST SINGLE VIEW dated 11/20/2013; CHEST SINGLE EW dated 11/19/2013 FINDINGS: Lines: None. Lungs: No evidence of edema or pneumonia. Pleural: No significant pleural effusions or pneumothorax. Cardiac: The heart size is within normal limits. Bones: No acute fractures. Other: IMPRESSION: No acute cardiopulmonary disease.
[2021-02-15] MEDS ORDERED: Ringers Lactate 1,000 ML IV ONE (06:24)
[2021-02-15] MEDS ORDERED: NS 0.9% VIAL 20 ML ONE (06:43)
[2021-02-15] MEDS ORDERED: LIDOCAINE 1% MPF 5 ML VIAL ONE (06:44)
[2021-02-15] MEDS ORDERED: dexAMETHasone 10 MG/ML VIAL ONE (06:44)
[2021-02-15] MEDS ORDERED: MIDAZOLAM HCL 2 MG/2 ML INJ ONE (06:44)
[2021-02-15] MEDS ORDERED: FENTANYL CITR 100 MCG/2 ML ONE (06:44)
[2021-02-15] MEDS ORDERED: BUPIVACAINE 0.25% PF 30 ML VIAL ONE (06:45)
[2021-02-15] MEDS ORDERED: SCOPOLAMINE HYDROBROMIDE PATCH TD ONE ×2 (06:54→12:59)
[2021-02-15] MEDS ORDERED: propofoL 200 MG/20 ML VIAL IV ONE (07:39)
[2021-02-15] MEDS ORDERED: LIDOCAINE 2% MPF 5 ML VIAL ONE (07:39)
[2021-02-15] MEDS ORDERED: KETAMINE HCL 500 MG/5 ML VIAL ONE (07:39)
[2021-02-15] MEDS ORDERED: KETOROLAC 30 MG/ML INJ ONE (07:39)
[2021-02-15] MEDS ORDERED: ONDANSETRON 4 MG/2 ML VIAL ONE (07:40)
[2021-02-15] MEDS ORDERED: dexAMETHasone 4 MG/ML VIAL ONE (07:41)
[2021-02-15] MEDS: CEFAZOLIN/SWI 2gm 2 GM/20 ML SYR ONE ×2 (07:57→08:40)
[2021-02-15] MEDS ORDERED: BUPIVACAINE 0.5% PF 10 ML VIAL ONE (08:17)
[2021-02-15] MEDS ORDERED: HYDROMORPHONE HCL 1 MG/ML INJ ONE (08:18)
[2021-02-15] MEDS: BUPIVACAINE 0.5% PF 10 ML VIAL ONE ×2 (08:40→09:50)
[2021-02-15] MEDS ORDERED: NS 0.9% VIAL 10 ML ONE (08:42)
[2021-02-15] MEDS: Ringers Lactate 1,000 ML IV ONE ×2 (09:00→10:03)
[2021-02-15] MEDS ORDERED: TRANEXAMIC ACID 1,000 MG in NA CHLORIDE 0.9% 50 ML IV ONE (09:00)
[2021-02-15] MEDS ORDERED: DIPHENHYDRAMINE 50 MG/ML VIAL ONE (09:40)
[2021-02-15] MEDS ORDERED: LABETALOL 20 MG/4ML SYRINGE IV ONE (10:25)
--- NOTE | 2021-02-15 10:54 | P.BOP ---
Preoperative diagnosis: right knee osteoarthritis Postoperative diagnosis: same Primary procedure: right total knee arthroplasty Janitor And Cleaner: NONE,NONE Estimated blood loss: 20 cc Specimen: right knee bone remnants Findings: see dictation Anesthesia: General Complications: None Implants: Biomet Alan Persona 8 STD femur, E tibia, 10 mm CR poly, 32 patella Fluids & blood products: per anesthesia record; TT: 86 mins @ 300 mmHg Transferred to: Recovery Room Condition: Good
[2021-02-15] MEDS ORDERED: TRAMADOL HCL 50 MG TAB PO PRN (10:55)
[2021-02-15] MEDS ORDERED: MORPHINE 4 MG/ML SYR IV PRN (10:56)
[2021-02-15] MEDS ORDERED: ONDANSETRON 4 MG/2 ML VIAL IV PRN (10:56)
[2021-02-15] MEDS ORDERED: DOCUSATE NA 100 MG CAP PO PRN (10:56)
[2021-02-15 11:36] LABS: Hematocrit 37.5 % (36.0-45.0)
--- NOTE | 2021-02-15 11:39 | RAD REPORT ---
EXAM DESCRIPTION: RAD - Knee Right 2 View - 02/15/2021 11:31 am CLINICAL HISTORY: Right knee surgery FINDINGS: A right knee arthroplasty has been performed. The prosthesis is good position. No fracture or dislocation.
[2021-02-15] MEDS ORDERED: MORPHINE 2 MG/ML SYR IV PRN (14:00)
[2021-02-15] MEDS: HYDROCODONE/APAP 7.5/325 MG TAB PO PRN (14:25)
[2021-02-15] MEDS ORDERED: HYDROCODONE/APAP 7.5/325 MG TAB ONE (14:48)
[2021-02-15 15:11] VITALS: O2SAT 97
[2021-02-15 15:17] VITALS: BMI 26.6
[2021-02-15] MEDS: CEFAZOLIN/SWI 2gm 2 GM/20 ML SYR IV SCH (16:46)
[2021-02-15] MEDS ORDERED: DIPHENHYDRAMINE PO SCH (21:00)
[2021-02-15] MEDS ORDERED: ACETAMINOPHEN PO SCH (21:00)
[2021-02-15] MEDS ORDERED: DIPHENHYDRAMINE 25 MG TAB/CAP PO SCH (21:00)
[2021-02-15] MEDS ORDERED: [UNRECOGNIZED DRUG - OTHER] PO SCH (21:00)
[2021-02-15] MEDS ORDERED: ACETAMINOPHEN 500 MG TAB PO SCH (21:00)
--- NOTE | 2021-02-15 22:32 | P.OP ---
Preoperative diagnosis: right knee osteoarthritis Postoperative diagnosis: same Primary procedure: right total knee arthroplasty Anesthesia: general LMA Estimated blood loss: 20 cc Specimen: right knee bone remnants Findings: see dictation Operative Technique: Indication For Procedure: Candice is a 80 year-old female presenting to my clinic with signs, symptoms and x-ray findings consistent with severe right knee osteoarthritis. I discussed with the patient at length risks and benefits associated with operative and nonoperative treatment. She had failed conservative treatment measures and had significant difficulties with ADLs secondary to her pain. We discussed operative treatment and elected to proceed with right total knee arthroplasty. She expressed understanding and elected to proceed with operative treatment. Description Of Procedure: After informed consent was obtained, the patient was identified in the preoperative holding area. The right lower extremity was marked. The patient was then taken to the PACU where she underwent a right lower extremity adductor canal block performed by Anesthesia. She was then taken to the operating room, transferred to the operating table in supine fashion, and placed under general anesthesia. Her right lower extremity was then prepped and draped in usual sterile fashion. A time-out was initiated. The correct patient and procedure were confirmed and identified. The patient did receive her preoperative prophylactic antibiotics. The right lower extremity was then exsanguinated and tourniquet was inflated to 300 mmHg. Approximately 15 cm longitudinal incision was made centered over the anterior aspect of the right knee. Dissection was then taken to the extensor mechanism and a medial parapatellar arthrotomy was performed. The patella was everted and dislocated laterally and the knee was flexed in the fat pad. Medial lateral meniscus and ACL were all excised exposing the distal femur. Excess hypertrophic synovium was also excised within the suprapatellar pouch. The patient had an MRI of her right knee preoperatively for surgical planning and creation of cutting blocks. The cutting block was then placed over the distal femur and pins were then placed. The distal femoral cutting block was then placed over the pins. Knee joint was then used to ensure proper depth cut and the distal femur was then cut. The chamfer cutting guide was then placed over the distal end of the femur. Anterior, posterior cuts as well as anterior and posterior chamfer cuts were then made again confirming proper depth of the cut using an Lakhwinder wing. Excess bone remnants were then sent to pathology for further evaluation. Next, attention was taken to the proximal tibia. A tibial jig and tibial cutting block was then placed on proximal aspect of the right tibia and locked into position. Pins were then placed and alignment guide was then used to confirm proper alignment of the cut and then coronal and sagittal planes. Once this was confirmed, the cutting jig was placed over the pins and the proximal tibia was cut. Sizing trays were then selected and size 10 mm spacer was used and there was good overall balance in flexion and extension. Next, the trial implants were then placed using the size 8 standard CR femur and a size E tibia with an 10 mm CR poly. There was overall good range of motion and good stability trial implants were then removed. This improved the overall stability of the knee and components. The wound was then irrigated thoroughly with normal saline and the knee was then injected with 30 cc of 0.5% Marcaine both in the posterior capsule and mediallateral gutters as well as quadriceps tendon and periosteum. The tibia was then punched. The femur was drilled. The cement was then prepared on the back table. Cement was then placed first on the tibial surface followed by size E tibia. Excess cement was removed with [place] elevators. Size 8 standard CR femur was then placed on the distal femur after cement was placed on the distal femur. Excess cement was then removed and a size 10 mm CR trial poly was then placed. The knee was held in extension as the cement hardened. Undersurface of the patella was prepared debriding osteophytes using rongeurs as well as osteophytes had been debrided off the proximal tibia with rongeurs and osteotomes to aid with the medial tightness. Cement was placed on the undersurface of the patella after it was cut and a size 32 patella was placed. Once the cement was hardened, the knee was ranged, there was good overall stability both in flexion, extension and as well as stability with varus and valgus stresses. Trial poly was then removed and a size 10 mm CR poly was then placed and locked into position. The knee was then ranged again. There was good overall range of motion both for flexion and extension with good stability. The wound was then irrigated again thoroughly with normal saline using pulse lavage. Tourniquet was let down. Hemostasis was achieved using Bovie electrocautery. Extensor mechanism was then approximated using a #1 Vicryl bothin interrupted and running fashion. The fascia was then approximated using 0 Vicryl. Subcutaneous tissue was approximated with a 2-0 Vicryl. Skin was approximated using chas. Sterile dressings were applied. The patient was awakened and transferred back in stable condition Complications: None Implants: Biomet Alan Persona 8 CR STD femur, E tibia, 32 patella, 10 mm CR poly Fluids & blood products: per anesthesia record; TT: 86 mins @ 300 mmHg Transferred to: Recovery Room Condition: Good
[2021-02-16] MEDS: CEFAZOLIN/SWI 2gm 2 GM/20 ML SYR IV SCH ×2 (00:51→10:01)
[2021-02-16] MEDS: HYDROCODONE/APAP 7.5/325 MG TAB PO PRN ×3 (00:59→14:19)
[2021-02-16 05:45] LABS: Hematocrit 34.8 % (36.0-45.0)
[2021-02-16] MEDS ORDERED: ENOXAPARIN 30 MG/0.3 ML SQ SCH (06:00)
[2021-02-16] MEDS ORDERED: CELECOXIB 100 MG CAPSULE PO SCH (09:00)
[2021-02-16] MEDS ORDERED: FLUTICASONE 50MCG NASAL SPRAY NAS SCH (09:00)
[2021-02-16] MEDS ORDERED: METOPROLOL TAR 50 MG TAB PO SCH (09:00)
[2021-02-16 11:50] VITALS: BP 118/63; TEMP 98.6
--- NOTE | 2021-02-16 13:16 | P.DS ---
Admission Date: 02/15/21 Discharge Date: 02/16/21 Disposition: DC HOME/HOME HEALTH CARE Discharge Condition: GOOD Reason for Admission: s/p R TKA, HTN Consultations: none Procedures: R TKA 02/15/2021 Brief History of Present Illness: Candice is a 80-year-old female with past medical history of hypertension that underwent right total knee arthroplasty on February 15, 2021. Hospital Course: Candice underwent right total knee arthroplasty without complication. She was admitted to the floor in stable condition. Physical therapy was consulted and the patient mobilized on the day of surgery as well as early this morning without complication. She reports her pain is controlled at this time and her vital signs are stable. She received Lovenox for DVT prophylaxis while in the hospital be discharged on Xarelto. She will follow up in 2 weeks for wound check and staple removal. Physical therapy was scheduled for home health visits. Vital Signs/Physical Exam: Temp Pulse Resp BP Pulse Ox 98.6 F 54 11 L 118/63 95 02/16/21 11:49 02/16/21 11:49 02/16/21 11:49 02/16/21 11:49 02/16/21 11:49 Laboratory Data at Discharge: Hgb 11.9 g/dL (12.0-15.0) L 02/16/21 05:16 Hct 34.8 % (36.0-45.0) L 02/16/21 05:16 Home Medications: Metoprolol Tartrate 50 mg PO DAILY 05/31/20 Tramadol HCl [Ultram] 50 mg PO DAILY PRN 05/31/20 Acetaminophen/Diphenhydramine [Tylenol Pm Ex-Strength Caplet] 1 each PO BEDTIME 02/08/21 Cholecalciferol (Vitamin D3) [Vitamin D 5,000 IU Cap*] 5,000 unit PO DAILY 02/08/21 Fluticasone [Flonase 50MCG Nasal [place]*] 2 sprays NS DAILY 02/08/21 Zinc 50 mg PO DAILY 02/08/21 Hydrocodone 7.5/APAP 325 [[place] 7.5/325 mg*] 1 tab PO Q4H PRN tab 02/16/21 Physician Discharge Instructions: keep dressing clean and dry. Keep PREET hose on for 2 weeks to aid with swelling. May remove PREET hose for shower. Begin Xarelto tomorrow 02/17/2021 and take once daily in the morning. Diet: Regular Activity: Weight bearing as tolerated Followup: Rodolfo Agarwal MD [ACTIVE - CAN ADMIT] - 1-2 Weeks
== END 2021-02-16 14:40 | disposition home health service (06) ==
LOC: OR 05:53 → 2ND 13:18
PROVIDERS: ADMIT Orthopaedic Surgery Sports Medicine; ATTEND Orthopaedic Surgery Sports Medicine
PROC: 0SRC069 Replacement of Right Knee Joint with Oxidized Zirconium on Polyethylene Synthetic Substitute, Cemented, Open Approach (ICD-10-PCS; principal; 2021-02-16)
DX: M17.11 Unilateral primary osteoarthritis, right knee (principal); I10 Essential (primary) hypertension; Z20.822 Contact with and (suspected) exposure to COVID-19
CPT/HCPCS: 27447; 36415 ×2; 88305; 88311; 85018 ×2; 85014 ×2; 71046; 73560; 97116 ×2; 97139 ×2; 97161; 97530 ×2; 94010; U0003; J2704; J1100 ×2; J1200; J1650; J2250; J3010; J1170; J0690 ×2; G0378 ×3; J7120 ×2; J2405; G0379; 88304

== ENCOUNTER 2022-02-21 00:50 | Inpatient (IN) | payer OTHER ==
--- OUTSIDE RECORDS SUMMARY | 2022-02-21 01:47 | XMS REPORT | Continuity of Care Document ---
:1940 Author Organization [facility] Address [address] [place] [address] Dr. Ahumada [address] [place] [id number] Care Team Providers Name Role Phone Cathie Howard Attending Clinician Unavailable Sierra Pastor Attending Clinician Unavailable Juana Quintanilla Attending Clinician Unavailable Problems This patient has no known problems. Allergies, Adverse Reactions, Alerts This patient has no known allergies or adverse reactions. Medications This patient has no known medications. Procedures This patient has no known procedures. Encounters Start End Encounter Admission Attending Care Care Encounter Source Date/Time Date/Time Type Type Clinicians Facility Department ID 2021-12-27 Outpatient Howard, STLML[facility] Common 09:29:02 Cathie 0720 [facility] 2021-10-02 Outpatient Howard, [facility] Common 10:31:01 Cathie 0425 [facility] 2021-09-27 Outpatient Howard, [facility] Common 09:47:01 Cathie 0420 [facility] 2021-08-28 Outpatient Howard, STLC [facility] Common 09:31:01 Cathie 0321 [facility] 2021-08-02 Outpatient Howard, [facility] [id number] Common 15:35:01 Cathie 0223 [facility] 2021-07-05 Outpatient Howard, STLC [facility] [id number] Common 14:39:06 Cathie 0124 [facility] 2021-07-05 Outpatient Sierra Pastor [facility] [id number] Common 14:26:43 1220 [facility] 2021-07-05 Outpatient Pastor, Na [facility]LMLC [facility] [id number] 1 Common 14:07:35 1102 [facility] 2021-07-05 Outpatient Pastor, Na STLMLC [facility] [id number] 1 Common 14:05:50 1027 [facility] 2021-07-05 Outpatient Pastor, Na STLMLC [facility] [id number] 1 Common 13:47:54 0910 [facility] 2021-07-05 Outpatient Pastor, Na STLMLC [facility] [id number] 1 Common 12:56:52 0427 [facility] 2021-07-05 Outpatient Pastor, Na STLMLC [facility] [id number] 1 Common 12:55:06 0422 [facility] 2021-07-05 Outpatient Pastor, Na STLMLC [facility] [id number] 1 Common 12:53:17 0419 [facility] 2021-07-05 Outpatient Pastor, Na STLMLC [facility] [id number] 1 Common 12:26:59 0129 [facility] 2021-07-05 Outpatient Pastor, Na STLMLC [facility] [id number] 1 Common 12:25:37 0126 [facility] 2021-07-05 Outpatient [facility]C [facility] [id number] Common 12:15:16 1221 [facility] 2021-07-05 Outpatient Millender, STLMLC [facility] [id number] Common 11:57:25 Juana 1021 [facility] 2021-07-05 Outpatient Millender, STLMLC [facility] [id number] Common 11:49:44 Juana 0928 [facility] 2021-07-05 Outpatient Millender, STLMLC [facility] [id number] Common 11:47:29 Juana 0920 [facility] 2021-07-05 Outpatient Millender, STLMLC [facility] [id number] Common 11:30:17 Juana 0707 [facility] Results This patient has no known results.
[2022-02-21 01:57] LABS: Absolute Lymphocytes (CBC) 0.5 K/uL (0.7-4.9); Hematocrit 39.6 % (36.0-45.0); Lymphocytes % 7.5 % (15.3-44.8); MCV 91.3 fL (80-100); MPV 7.8 fL (7.6-11.3); RBC Red Blood Cell Count 4.34 M/uL (3.86-4.86)
[2022-02-21] MEDS ORDERED: MORPHINE 4 MG/ML SYR ONE (02:10)
[2022-02-21] MEDS ORDERED: ONDANSETRON 4 MG/2 ML VIAL ONE ×2 (02:10→08:18)
[2022-02-21 02:17] LABS: Albumin 4.1 g/dL (3.4-5.0); Bilirubin Total 0.8 mg/dL (0.2-1.0); Protein, Total 7.3 g/dL (6.4-8.2)
[2022-02-21] MEDS ORDERED: HYDROMORPHONE HCL 1 MG/ML INJ ONE (03:40)
--- NOTE | 2022-02-21 04:29 | ER ---
Nurse's Notes [facility] Name: Candice Silva Age: 81 yrs Sex: Female : 1940 Arrival Date: 02/21/2022 Time: 00:52 Bed 14 Private MD: Diagnosis: Bowel obstruction Presentation: 02/21 01:09 Chief complaint: Patient states: mid abdominal pain began approximately [address] increasing pt reports bloating and previous blockages. Coronavirus screen: Vaccine status: Patient reports receiving the 2nd dose of the covid vaccine. Initial Sepsis Screen: Does the patient meet any 2 criteria? No. Patient's initial sepsis screen is negative. Does the patient have a suspected source of infection? No. Patient's initial sepsis screen is negative. Risk Assessment: Do you want to hurt yourself or someone else? Patient reports no desire to harm self or others. 01:09 Method Of Arrival: Ambulatory kl 01:09 Acuity: HAILEY 3 kl 06:19 Ebola Screen: Patient denies travel to an Ebola-affected area in the 21 days before lg3 illness onset. Onset of symptoms was February 20, 2022. Triage Assessment: 01:13 General: Appears distressed, uncomfortable, Behavior is anxious, crying. Pain: Denies kl pain. GI: Reports lower abdominal pain, upper abdominal pain. Historical: - Allergies: 01:12 tree pollen; kl - Home Meds: 01:12 atorvastatin 40 mg Oral tab 1 tab once daily [Active]; losartan Oral once daily kl [Active]; metoprolol ta-hydrochlorothiaz 50-25 mg Oral tab 1 tab once daily [Active]; - PMHx: 01:12 Arthritis; bowel obstruction; colon cancer; Hypercholesterolemia; Hypertension; kl - PSHx: 01:12 Colorectal SX; Right knee replacement; Total abdominal hysterectomy; kl - Immunization history:: Adult Immunizations up to date. - Social history:: Smoking status: Patient denies any tobacco usage or history of. Screenin:51 Abuse screen: Denies threats or abuse. Denies injuries from another. Nutritional lg3 screening: No deficits noted. Tuberculosis screening: No symptoms or risk factors identified. Fall Risk None identified. Assessment: 01:51 General: Appears in no apparent distress. uncomfortable, Behavior is calm, cooperative, lg3 fussy. Pain: Complains of pain in abdomen Pain does not radiate. Pain currently is 10 out of 10 on a pain scale. Quality of pain is described as crampy, heavy, squeezing, Noted to be grimacing, guarding, moaning, resistant to movement, restless. Neuro: No deficits noted. Level of Consciousness is awake, alert, obeys commands, Oriented to person, place, time, situation. Cardiovascular: No deficits noted. Denies chest pain, shortness of breath, Capillary refill < 3 seconds Clubbing of nail beds is absent JVD is absent Patient's skin is warm and dry. Respiratory: No deficits noted. Airway is patent Trachea midline Respiratory effort is even, unlabored, Respiratory pattern is regular, symmetrical, Breath sounds are clear bilaterally. GI: Abdomen is round distended, Bowel sounds present X 4 quads. Abdomen is tender to palpation X 4 quads. Reports lower abdominal pain, upper abdominal pain, bloating, cramping. : No deficits noted. No signs and/or symptoms were reported regarding the genitourinary system. EENT: No deficits noted. No signs and/or symptoms were reported regarding the EENT system. Derm: No deficits noted. No signs and/or symptoms reported regarding the dermatologic system. Skin is intact, is healthy with good turgor, Skin is dry, Skin is normal, Skin temperature is warm. Musculoskeletal: No deficits noted. No signs and/or symptoms reported regarding the musculoskeletal system. Circulation, motion, and sensation intact. Range of motion: intact in all extremities. 03:24 General:. Pain: Complains of pain in abdomen Pain does not radiate. Pain currently is lg3 10 out of 10 on a pain scale. Quality of pain is described as crampy, heavy, sharp, squeezing, Noted to be crying, grimacing, guarding, moaning, resistant to movement, restless. 04:13 Reassessment: Patient appears in no apparent distress at this time. No changes from lg3 previously documented assessment. Patient and/or family updated on plan of care and expected duration. Pain level reassessed. Patient is alert, oriented x 3, equal unlabored respirations, skin warm/dry/pink. 06:22 Reassessment: Patient appears in no apparent distress at this time. No changes from lg3 previously documented assessment. Patient and/or family updated on plan of care and expected duration. Pain level reassessed. Patient is alert, oriented x 3, equal unlabored respirations, skin warm/dry/pink. pt quietly resting at this time. Vital Signs: 01:09 BP 163 / 109; Pulse 75; Resp 18; Temp 98.4(O); Pulse Ox 96% on R/A; Pain 8/10; kl 02:20 BP 138 / 95; Pulse 75; Resp 71; Pulse Ox 99% on R/A; lg3 04:13 BP 146 / 89; Pulse 71; Resp 17 S; Pulse Ox 98% on R/A; lg3 06:25 BP 129 / 81; Pulse 62; Resp 16 S; Pulse Ox 98% on R/A; lg3 ED Course: 00:52 Patient arrived in ED. bp1 01:11 Triage completed. kl 01:32 Meredith Butcher, KELSEY is Primary Nurse. lg3 01:42 Elieser Zee MD is Attending Physician. kdr 01:51 CBC with Diff Sent. lg3 01:51 CMP Sent. lg3 01:51 Lipase Sent. lg3 01:51 Inserted saline lock: 20 gauge in right antecubital area, using aseptic technique. lg3 Blood collected. 01:51 Patient has correct armband on for positive identification. Placed in gown. Bed in low lg3 position. Call light in reach. Side rails up X 1. Client placed on continuous cardiac and pulse oximetry monitoring. NIBP monitoring applied. campus monitor on. Door closed. Noise minimized. Warm blanket given. Family accompanied patient. 03:08 CT Abd/Pelvis - IV Contrast Only In Process Unspecified. EDMS 04:26 Mahesh Marrero MD is Hospitalizing Provider. kdr 04:41 SARS RAPID Sent. lg3 06:20 Arm band placed on right wrist. lg3 Administered Medications: 02:07 Drug: morphine 4 mg Route: IVP; Infused Over: 4 mins; Site: right antecubital; lg3 02:42 Follow up: Response: No adverse reaction; Marked relief of symptoms; Pain is decreased lg3 02:07 Drug: Zofran (Ondansetron) 4 mg Route: IVP; Site: right antecubital; lg3 02:42 Follow up: Response: No adverse reaction; Marked relief of symptoms lg3 03:38 Drug: Dilaudid (HYDROmorphone) 1 mg Route: IVP; Site: right antecubital; lg3 04:35 Follow up: Response: No adverse reaction; Pain is unchanged, physician notified lg3 04:53 Drug: Dilaudid (HYDROmorphone) 0.5 mg Route: IVP; Site: right antecubital; lg3 06:20 Follow up: Response: No adverse reaction; Marked relief of symptoms lg3 Outcome: 04:27 Decision to Hospitalize by Provider. kdr 08:55 Patient left the ED. ko1 Signatures: Dispatcher [employer] EDMS Yenifer Reddy RN RN kl Elieser Zee MD MD kdr Gibson, Lacie, RN RN lg3 Enma Webb Kathy, RN RN ko1
--- NOTE | 2022-02-21 04:29 | EDPHYS ---
Physician Documentation [facility] Name: Candice Silva Age: 81 yrs Sex: Female : 1940 Arrival Date: 02/21/2022 Time: 00:52 Bed 14 Private MD: ED Physician Elieser Zee HPI: 02/21 23:36 This 81 yrs old Female presents to ER via Ambulatory with complaints of Abdominal Pain. kdr 23:36 The patient presents with abdominal pain that is diffuse, abdominal distention that is kdr diffuse. Onset: The symptoms/episode began/occurred suddenly, at 19:30. The symptoms do not radiate. Associated signs and symptoms: Pertinent positives: nausea, Pertinent negatives: chest pain, constipation, diarrhea, dysuria, fever, palpitations, shortness of breath, vaginal discharge, vomiting, vomiting blood. The symptoms are described as achy, crampy, intermittent, waxing/waning. Modifying factors: The symptoms are alleviated by nothing, the symptoms are aggravated by food. Severity of pain: At its worst the pain was mild moderate just prior to arrival, in the emergency department the pain is unchanged. The patient has experienced similar episodes in the past, a few times, Patient states that she has a history of bowel obstructions secondary to eating meat. She then he ate some meat this evening. She felt that she had chewed and/or cut up the meat sufficiently to prevent this occurrence however that is not apparently the case. Patient is nontoxic-appearing but otherwise states that she feels her abdomen is painful in a way similar to prior bowel obstructions. The patient has not recently seen a physician. Historical: - Allergies: 01:12 tree pollen; kl - Home Meds: 01:12 atorvastatin 40 mg Oral tab 1 tab once daily [Active]; losartan Oral once daily kl [Active]; metoprolol ta-hydrochlorothiaz 50-25 mg Oral tab 1 tab once daily [Active]; - PMHx: 01:12 Arthritis; bowel obstruction; colon cancer; Hypercholesterolemia; Hypertension; kl - PSHx: 01:12 Colorectal SX; Right knee replacement; Total abdominal hysterectomy; kl - Immunization history:: Adult Immunizations up to date. - Social history:: Smoking status: Patient denies any tobacco usage or history of. ROS: 23:36 Constitutional: Negative for fever, chills, and weight loss, Eyes: Negative for injury, kdr pain, redness, and discharge, ENT: Negative for injury, pain, and discharge, Neck: Negative for injury, pain, and swelling, Cardiovascular: Negative for chest pain, palpitations, and edema, Respiratory: Negative for shortness of breath, cough, wheezing, and pleuritic chest pain, Back: Negative for injury and pain, : Negative for injury, bleeding, discharge, and swelling, MS/Extremity: Negative for injury and deformity, Skin: Negative for injury, rash, and discoloration, Neuro: Negative for headache, weakness, numbness, tingling, and seizure activity. Psych: Negative for depression, anxiety, suicide ideation, homicidal ideation, and hallucinations, Allergy/Immunology: Negative for hives, rash, and allergies, Endocrine: Negative for neck swelling, polydipsia, polyuria, polyphagia, and marked weight changes, Hematologic/Lymphatic: Negative for swollen nodes, abnormal bleeding, and unusual bruising. 23:36 Abdomen/GI: Positive for abdominal pain, abdominal cramps, abdominal distension, Negative for vomiting, diarrhea, constipation. Exam: 23:36 Constitutional: This is a well developed, well nourished patient who is awake, alert, kdr and in no acute distress. Head/Face: Normocephalic, atraumatic. Eyes: Pupils equal round and reactive to light, extra-ocular motions intact. Lids and lashes normal. Conjunctiva and sclera are non-icteric and not injected. Cornea within normal limits. Periorbital areas with no swelling, redness, or edema. Neck: Trachea midline, no thyromegaly or masses palpated, and no cervical lymphadenopathy. Supple, full range of motion without nuchal rigidity, or vertebral point tenderness. No Meningismus. Chest/axilla: Normal chest wall appearance and motion. Nontender with no deformity. No lesions are appreciated. Cardiovascular: Regular rate and rhythm with a normal S1 and S2. No gallops, murmurs, or rubs. Normal PMI, no JVD. No pulse deficits. Respiratory: Lungs have equal breath sounds bilaterally, clear to auscultation and percussion. No rales, rhonchi or wheezes noted. No increased work of breathing, no retractions or nasal flaring. Back: No spinal tenderness. No costovertebral tenderness. Full range of motion. Skin: Warm, dry with normal turgor. Normal color with no rashes, no lesions, and no evidence of cellulitis. MS/ Extremity: Pulses equal, no cyanosis. Neurovascular intact. Full, normal range of motion. Neuro: Awake and alert, GCS 15, oriented to person, place, time, and situation. Cranial nerves II-XII grossly intact. Motor strength 5/5 in all extremities. Sensory grossly intact. Cerebellar exam normal. Normal gait. Psych: Awake, alert, with orientation to person, place and time. Behavior, mood, and affect are within normal limits. 23:36 Abdomen/GI: Inspection: abdomen appears normal, Bowel sounds: active, in the abdomen diffusely, Palpation: soft, mild abdominal tenderness, rebound tenderness, is not appreciated. Vital Signs: 01:09 BP 163 / 109; Pulse 75; Resp 18; Temp 98.4(O); Pulse Ox 96% on R/A; Pain 8/10; kl 02:20 BP 138 / 95; Pulse 75; Resp 71; Pulse Ox 99% on R/A; lg3 04:13 BP 146 / 89; Pulse 71; Resp 17 S; Pulse Ox 98% on R/A; lg3 06:25 BP 129 / 81; Pulse 62; Resp 16 S; Pulse Ox 98% on R/A; lg3 MDM: 04:27 Patient medically screened. kdr 23:36 Data reviewed: vital signs, nurses notes, lab test result(s), radiologic studies. kdr Counseling: I had a detailed discussion with the patient and/or guardian regarding: the historical points, exam findings, and any diagnostic results supporting the discharge/admit diagnosis, lab results, radiology results, the need for further work-up and treatment in the hospital. 23:36 ED course: . ED course: Patient was stable in the ED and admitted to the floor in kdr stable condition.. 02/21 01:34 Order name: CBC with Diff; Complete Time: 02:43 3 02/21 01:34 Order name: CMP; Complete Time: 02:43 3 02/21 01:34 Order name: Lipase; Complete Time: 02:43 3 02/21 01:34 Order name: Urine Microscopic Only 3 02/21 02:00 Order name: CT Abd/Pelvis - IV Contrast Only kdr 02/21 04:33 Order name: SARS RAPID wm 02/21 01:34 Order name: IV Saline Lock; Complete Time: 01:51 lg3 02/21 01:34 Order name: Labs collected and sent; Complete Time: :51 lg3 Administered Medications: 02:07 Drug: morphine 4 mg Route: IVP; Infused Over: 4 mins; Site: right antecubital; lg3 02:42 Follow up: Response: No adverse reaction; Marked relief of symptoms; Pain is decreased lg3 02:07 Drug: Zofran (Ondansetron) 4 mg Route: IVP; Site: right antecubital; lg3 02:42 Follow up: Response: No adverse reaction; Marked relief of symptoms lg3 03:38 Drug: Dilaudid (HYDROmorphone) 1 mg Route: IVP; Site: right antecubital; lg3 04:35 Follow up: Response: No adverse reaction; Pain is unchanged, physician notified lg3 04:53 Drug: Dilaudid (HYDROmorphone) 0.5 mg Route: IVP; Site: right antecubital; lg3 06:20 Follow up: Response: No adverse reaction; Marked relief of symptoms lg3 Disposition Summary: 02/21/22 04:27 Hospitalization Ordered Hospitalization Status: Inpatient Admission kdr Provider: Mahesh Marrero Condition: Fair kdr Problem: an acute exacerbation kdr Symptoms: have improved kdr Bed/Room Type: Standard kdr Location: Telemetry/MedSurg (Inpatient)(02/21/22 07:52) jl7 Room Assignment: [facility](02/21/22 07:52) jl7 Diagnosis - Bowel obstruction kdr Forms: - Medication Reconciliation Form kdr - SBAR form kdr Signatures: Dispatcher [employer] Yenifer Lares RN RN kl Webb, Martha, RN RN mw Rittger, Kevin, MD MD kdr Attema, Lee, FNP-C FNP-Cla1 Olivia Phillips RN RN jl7 Meredith Butcher RN RN lg3 Corrections: (The following items were deleted from the chart) 05:37 04:27 Telemetry/MedSurg (Inpatient) kdr mw 05:37 04:27 kdr 07:52 05:37 BR ER HOLD [facility] 07:52 05:37 ERHOLD- mw jl7
--- NOTE | 2022-02-21 04:50 | P.HP ---
Certification for Inpatient Patient admitted to: Inpatient With expected LOS: >2 Midnights Patient will require the following post-hospital care: None Practitioner: I am a practitioner with admitting privileges, knowledge of patient current condition, hospital course, and medical plan of care. Services: Services provided to patient in accordance with Admission requirements found in Title 42 Section 412.3 of the Code of Federal Regulations Patient History Date of Service: 02/21/22 Reason for admission: SBO History of Present Illness: 81-year-old female with hx of SBO, HTN, HLD, and previous colorectal surgery in 2013 presents to the ED for abdominal pain started around 2000 this evening after eating some steak. She is evaluated in the emergency department her labs are overall unremarkable, CT showed postoperative changes within the anterior midline pelvis with a dilated small bowel loops distal to the site of the anastomosis suggesting the possibility of mild ileus and/or partial small bowel obstruction related to adhesions. Patient reports approximately 5 bowel obstructions in the past, she has not yet required surgical intervention for any of the previous obstructions. Will admit patient to hospital service keep n.p.o. and consult general surgery. Allergies No Known Allergies Allergy (Verified 09/16/21 05:52) Home Medications: Metoprolol Tartrate 50 mg PO DAILY 05/31/20 Acetaminophen/Diphenhydramine [Tylenol Pm Exstr 500-25Mg Cplt] 1 each PO BEDTIME 02/08/21 Cholecalciferol (Vitamin D3) [Vitamin D 5,000 IU Cap*] 5,000 unit PO DAILY 02/08/21 Fluticasone [Flonase 50MCG Nasal Candor*] 2 sprays NS DAILY 02/08/21 Atorvastatin Calcium 40 mg PO DAILY 09/16/21 - Past Medical/Surgical History Diabetic: No -: colon cancer -: hypertension -: seasonal allergies -: Partial colectomy -: SBO -: colon resection with colostomy -: colostomy takedown -: colonoscopy -: breast biopsies Psychosocial/ Personal History: Patient is retired and lives with her - Family History Mother -: Cancer Notes: breast cancer Father -: Heart disease - Social History Smoking Status: Never smoker Alcohol use: Yes CD- Drugs: No Caffeine use: Yes Place of Residence: Home Review of Systems 10-point ROS is otherwise unremarkable Gastrointestinal: Nausea, Vomiting, Abdominal Pain, Distention Physical Examination - Physical Exam General: Alert, In no apparent distress, Oriented x3 HEENT: Atraumatic, PERRLA, Mucous membr. moist/pink, EOMI, Sclerae nonicteric Neck: Supple, 2+ carotid pulse no bruit, No LAD, Without JVD or thyroid abnormality Respiratory: Clear to auscultation bilaterally, Normal air movement Cardiovascular: Regular rate/rhythm, Normal S1 S2 Capillary refill: <2 Seconds Gastrointestinal: Normal bowel sounds, Tenderness (Mild generalized abd tenderness) Musculoskeletal: No tenderness Integumentary: No rashes Neurological: Normal speech, Normal strength at 5/5 x4 extr, Normal tone, Normal affect - Studies Laboratory Data (last 24 hrs) 02/21/22 01:48: Sodium 141, Potassium 4.0, BUN 20 H, Creatinine 0.90, Glucose 132 H, Total Bilirubin 0.8, AST 11 L, ALT 28, Alkaline Phosphatase 80, Lipase 91 02/21/22 01:48: WBC 6.70, Hgb 13.7, Hct 39.6, Plt Count 218 Assessment and Plan - Plan Assessment: Small bowel obstruction Hypertension Hyperlipidemia Plan: Small bowel obstruction: NPO, IVF, IV ABX, PRN pain meds and anti-emetics. Will place NGT if patient has any worsening pain, distension, or vomiting. Surgical consult in place, encourage ambulation. Hypertension: Hold oral meds until cleared by surgery Hyperlipidemia: Hold oral meds until cleared by surgery DVT PPX: SCDs Code status: Full Discharge Plan: Home Plan to discharge in: Greater than 2 days - Advance Directives Does patient have a Living Will: No Does patient have a Durable POA for Healthcare: No - Code Status/Comfort Care Code Status Assessed: Yes (Full code) Critical Care: No Time Spent Managing Pts Care (In Minutes): 70
[2022-02-21] MEDS ORDERED: HYDROMORPHONE HCL 0.5 MG/0.5 ML INJ ONE ×2 (04:55→05:01)
[2022-02-21 05:07] LABS: SARS-CoV-2 Antigen Rapid Res Negative (Negative)
[2022-02-21] MEDS ORDERED: HYDROMORPHONE HCL 1 MG/ML INJ IV PRN (06:42)
[2022-02-21 06:52] VITALS: BMI 28.3
[2022-02-21] MEDS ORDERED: D5.45NS W/KCL 20MEQ 1,000 ML IV ONE (07:05)
[2022-02-21] MEDS: D5.45NS W/KCL 20MEQ 1,000 ML IV SCH ×3 (08:00→20:57)
[2022-02-21] MEDS: ONDANSETRON 4 MG/2 ML VIAL IV PRN ×2 (08:10→16:30)
[2022-02-21] MEDS: METRONIDAZOLE 500mg IVPB 500 MG/100 ML BAG IV SCH ×2 (09:31→16:30)
[2022-02-21] MEDS: CIPROFLOXACIN 400mg IV 400 MG/200 ML BAG IV SCH ×2 (09:31→20:52)
--- NOTE | 2022-02-21 11:29 | RAD REPORT ---
EXAM DESCRIPTION: CT - Abdomen Pelvis W Contrast - 02/21/2022 6:48 am CLINICAL HISTORY: 81 years, Female, Abdominal pain, acute, nonlocalized COMPARISON: 09/16/2021 TECHNIQUE: Contrast-enhanced images of the abdomen and pelvis were performed utilizing 5 mm slice th ickness at 5 mm interval reconstruction from the lung bases to the ischial tuberosities after the adm inistration of IV contrast. In addition multiplanar reformats in the coronal and sagittal plane were obtained and reviewed. This exam was performed according to our departmental dose-optimization protocol, which includes auto mated exposure control, adjustment of the mA and/or kV according to patient size and/or use of iterat ivy reconstruction technique. FINDINGS: The lung bases demonstrate to posterior-superior right lower lobe pulmonary nodule measuri ng 4 mm on image 1. The liver, gallbladder, pancreas, spleen and adrenal glands demonstrate to be unremarkable, no focal lesions are noted. The kidneys demonstrate normal uptake of contrast media. There is a lower pole left renal calculus me asuring 9.6 mm on image 34. Grossly the unopacified stomach and large bowel demonstrate to be within normal limits. Again there are postoperative changes within the anterior midline pelvis with the dilated small bowel loops dist al to the side of anastomosis suggesting the possibility of mild ileus and/or partial bowel obstructi on related to adhesions. Findings are somewhat similar to prior study. The appendix is normal. The urinary bladder demonstrate to be unremarkable. The uterus is absent. The aorta demonstrate m inimal at the ligament of Treitz plaque formation. There is no retroperitoneal lymphadenopathy. The re is no ascites. The rest of the soft tissue and bony structures are within normal limits. IMPRESSION: Postoperative changes within the anterior midline pelvis with the dilated small bowel lo ops distal to the side of anastomosis suggesting the possibility of mild ileus and/or partial bowel o bstruction related to adhesions. 9.6 mm lower pole left renal calculus. 4 mm right solid pulmonary nodule. No routine follow-up imaging is recommended per Fleischner Society Guidelines. Electronically signed by: Raudel Will MD 02/21/2022 3:20 AM CDT Due to temporary technical issues with the PACS/Fluency reporting system, reports are being signed by the in house radiologists without review as a courtesy to insure prompt reporting. The interpreting radiologist is fully responsible for the content of the report.
[2022-02-21 16:05] LABS: Urine Mucus Slight /HPF (None Seen); Urine RBC <5 /HPF (None Seen)
--- NOTE | 2022-02-21 20:06 | CON ---
Date of Consultation: 02/21/2022 Brief History Of Present Illness: The patient is a 81-year-old female, known to me from pr evious admissions whereby she came in with multiple bowel obstructions treated with medical managemen t. She has a history of hypertension and colon cancer, presented to the emergency department with co mplaints of abdominal pain after eating steak. She states she had a colectomy before in the past wit h colostomy creation in the right upper abdomen, uncertain of the part of the colon that was resected , done by Dr. Matthew Gonzales in [place]. She ultimately had a colostomy reversal and reanastomosis, uncle ar about the cancer diagnosis and the location whether it was cancer or just a malignant polyp remove d. However, she no longer sees Dr. Gonzales due to insurance changes. She had been feeling similar epis odes of nausea, vomiting, bloating, tenderness, distention over the past day and had 1 episode of vom iting in the ER after arrival. Since being at the hospital, she has significant symptomatic improvem ent. Her last bowel movement was yesterday just prior to presentation to hospital and it was volumus diarrhea by her description. Past Medical History: Significant for colon cancer, hypertension, seasonal allergies, small bowel ob structions. Past Surgical History: Includes colonoscopies, breast biopsies, colostomy creation, colostomy takedo wn, partial colectomy with anastomosis. Social History: Retired. Lives with the . She denies smoking, alcohol, or recreational drug use. Allergies: NO KNOWN DRUG ALLERGIES. Home Medications: Include metoprolol, Ultram, vitamin D, Flonase, zinc, Simms, and a probiotic. Family History: Significant for breast cancer in her mother. Review of Systems: Ten-point review of systems other than HPI, denies. Physical Examination: Vital signs: At the time of examination her BMI is 28.3. Her blood pressure 118/51, heart rate 55, respiratory rate 16, temperature 97.6, SpO2 97% on room air. General: She is awake, alert, and oriented. Psychiatric: Appropriate. Conversive. HEENT: Normocephalic. Sclerae anicteric. Mucous membranes are moist. Oropharynx clear. Neck: Supple without JVD. Chest: Normal expansion and excursion. Cardiovascular: Regular rate and rhythm. Pulmonary: Clear to auscultation bilaterally. Abdomen: Soft, nontender, nondistended. No rebound. No guarding. No focal peritonitis. Well-heal ed surgical scars are evident. Laboratory Data: Reveals a white blood count of 6.7, hemoglobin 13.7, hematocrit of 39.6, platelet c ount was 218. Neutrophils are 84%. Her sodium is 141, potassium 4.0, chloride 108, carbon dioxide 2 8, BUN 20, creatinine 0.9, glucose is 132, total bilirubin 0.8, AST 11, ALT 28, alkaline phosphatase is 80, lipase is 91. COVID was negative. She had imaging performed on this admission, which include a CT abdomen and pelvis, officially read a s postoperative changes of the anterior midline pelvis with dilated small bowel loops distal to the s ite of the anastomosis suggesting the possibility of mild ileus and/or partial obstruction related to adhesions. A 9.6 mm lower pole left renal calculus, 4 mm right solid pulmonary nodule. No routine followup imaging is recommended per Fleischner Society guidelines. Assessment And Plan: This is a 81-year-old female who presents with signs and symptoms of recurrent early partial small-bowel obstruction. 1.IV fluid hydration. 2.Antibiotic coverage. 3.Serial abdominal exams. 4.Medical management. 5.I explained the risks, benefits, and alternatives of nonoperative versus operative management incl uding but not limited to bleeding, infection, damage to surrounding tissues, should surgery be entert ained. I recommend nonoperative management at this point and we will proceed with nonoperative manag ement unless she is able to resolve with this method. I have explained risks, benefits, and alternatives of the above stated plan and the patient agrees to proceed as indicated. CORTNEY/YARIEL Voice ID: [id number] Report ID: [id number]
[2022-02-22] MEDS: METRONIDAZOLE 500mg IVPB 500 MG/100 ML BAG IV SCH ×3 (00:44→16:46)
[2022-02-22] MEDS: D5.45NS W/KCL 20MEQ 1,000 ML IV SCH ×3 (02:42→22:42)
[2022-02-22 06:17] LABS: Absolute Lymphocytes (CBC) 0.4 K/uL (0.7-4.9); Hematocrit 40.6 % (36.0-45.0); Lymphocytes % 7.4 % (15.3-44.8); MCV 92.7 fL (80-100); MPV 8.2 fL (7.6-11.3); RBC Red Blood Cell Count 4.38 M/uL (3.86-4.86)
[2022-02-22 06:23] LABS: Albumin 3.4 g/dL (3.4-5.0); Bilirubin Total 0.9 mg/dL (0.2-1.0); Magnesium 1.8 mg/dL (1.8-2.4); Potassium 4.2 mmol/L (3.5-5.1); Protein, Total 6.3 g/dL (6.4-8.2)
[2022-02-22] MEDS ORDERED: MAGNESIUM SULFATE 1 gm IVPB 1 GM/100 ML BAG IV ONE (07:00)
[2022-02-22] MEDS: CIPROFLOXACIN 400mg IV 400 MG/200 ML BAG IV SCH ×2 (08:30→21:32)
--- NOTE | 2022-02-22 09:02 | RAD REPORT ---
EXAM DESCRIPTION: RAD - Abdomen Acute Series - 02/22/2022 8:48 am CLINICAL HISTORY: Abdominal pain FINDINGS: Moderate dilatation of multiple small bowel loops without significant change from Septembe r 14th. Little air within the colon. This is compatible with an obstruction. Free air is not seen beneath the diaphragm
--- NOTE | 2022-02-22 13:59 | P.PN ---
Subjective Date of Service: 02/22/22 Chief Complaint: SBO Subjective: Improving (Patient is having flatus. Tolerating a full liquid diet without difficulty. However, her abdominal x-ray still demonstrates small bowel obstruction.) Physical Examination - Vital Signs Temperature: 98.3 F Blood Pressure: 151/70 Pulse: 59 Respirations: 16 Pulse Ox (%): 97 - Physical Exam General: In no apparent distress, Cooperative HEENT: Atraumatic, Normocephalic Respiratory: Clear to auscultation bilaterally, Normal air movement Cardiovascular: Normal pulses, Regular rate/rhythm, Normal S1 S2 Gastrointestinal: Soft and benign, Non-distended, Other (Bowel sounds presents but decreased) Musculoskeletal: No clubbing, No swelling, No contractures, No erythema Assessment And Plan - Current Problems (Diagnosis) (1) Abdominal pain Onset Date: 06/16/18 Current Visit: No Status: Acute Qualifiers: Abdominal location: generalized Qualified Code(s): R10.84 - Generalized abdominal pain (2) Colorectal carcinoma Current Visit: No Status: Acute (3) Rectal carcinoma Onset Date: 06/16/18 Current Visit: No Status: Acute (4) SBO (small bowel obstruction) Current Visit: No Status: Acute (5) HTN (hypertension) Current Visit: No Status: Chronic Qualifiers: Hypertension type: primary hypertension Qualified Code(s): I10 - Essential (primary) hypertension (6) History of colorectal cancer Current Visit: No Status: Chronic (7) History of partial colectomy Current Visit: No Status: Chronic (8) Small bowel obstruction, partial Current Visit: No Status: Chronic - Plan Assessment Patient is a 81-year-old female with known past medical history of colorectal cancer status post partial colectomy. She was admitted to the hospital with small bowel obstruction she is starting to tolerate oral liquids and having flatus. She also had an episode of diarrhea overnight. Unfortunately, her abdominal x-ray still showing evidence of obstruction even though she is symptomatically much improved. Partial small bowel obstruction History of corrective cancer status post partial colectomy HTN Plan: Discussed this case with surgery. We agreed to keep her in the hospital 1 more day Will repeat abdominal x-ray tomorrow Continue current diet Encourage ambulation BP control
[2022-02-22] MEDS ORDERED: HYDRALAZINE HCL 20 MG/ML VIAL IV PRN (14:04)
[2022-02-23] MEDS: METRONIDAZOLE 500mg IVPB 500 MG/100 ML BAG IV SCH ×2 (01:05→08:13)
[2022-02-23] MEDS: D5.45NS W/KCL 20MEQ 1,000 ML IV SCH (08:12)
[2022-02-23] MEDS: ONDANSETRON 4 MG/2 ML VIAL IV PRN ×2 (08:13→20:49)
[2022-02-23] MEDS: CIPROFLOXACIN 400mg IV 400 MG/200 ML BAG IV SCH (08:14)
--- NOTE | 2022-02-23 09:49 | P.PN ---
Subjective Date of Service: 02/23/22 Chief Complaint: Small bowel obstruction nausea Subjective: Improving (Patient is improving she did not tolerate regular diet will revert back to the original liquid diet she has had numerous bouts of small bowel obstruction before) Review of Systems 10-point ROS is otherwise unremarkable General: Weakness Physical Examination - Vital Signs Temperature: 97.6 F Blood Pressure: 165/74 Pulse: 66 Respirations: 16 Pulse Ox (%): 97 - Physical Exam General: Alert, In no apparent distress, Mild distress Neck: Supple Respiratory: Clear to auscultation bilaterally Cardiovascular: No edema, Regular rate/rhythm Gastrointestinal: Normal bowel sounds, Soft and benign Assessment And Plan - Current Problems (Diagnosis) (1) SBO (small bowel obstruction) Current Visit: No Status: Acute Plan: Patient is 81 years of age past history of colorectal cancer numerous history of small bowel obstruction episodes before not tolerated regular diet we will switch her back to full liquid diet and by general surgery repeat a KUB ambulate possible evaluation for discharge today Patient is on IV antibiotics Cipro and Flagyl no evidence of an infection Discharge Plan: Home
[2022-02-23] MEDS: VITAMIN D 5,000 UNIT CAP PO SCH (09:50)
[2022-02-23] MEDS: METOPROLOL TAR 50 MG TAB PO SCH (09:50)
[2022-02-23] MEDS: CYANOCOBALAMIN 1,000 MCG TAB PO SCH (09:51)
--- NOTE | 2022-02-23 11:26 | RAD REPORT ---
EXAM DESCRIPTION: RAD - Abdomen Acute Series - 02/23/2022 11:06 am CLINICAL HISTORY: History of small bowel obstruction COMPARISON: Abdomen Acute Series dated 02/22/2022; Abdomen Pelvis W Contrast dated 02/21/2022 FINDINGS: Chronic interstitial lung pattern is present. No failure, infiltrate or acute cardiopulmon theo finding. Cardiac leads overlie the chest. Heart size and pulmonary vasculature are normal. No ple ural effusion, pneumothorax or other acute cardiopulmonary process seen. No significant change from . Air and stool are scattered throughout nondilated colon from cecum to rectum. No free air or pneumato sis have developed. Multiple dilated small bowel loops are present in the right mid abdomen. Pattern is not substantially different from the comparison. Prominent lumbar degenerative change again noted. IMPRESSION: Multiple dilated small bowel loops in the mid abdomen on the right. Pattern is not subst antially different from February 22. No free air or pneumatosis identifiable.
[2022-02-23 14:12] LABS: Albumin 3.8 g/dL (3.4-5.0); Bilirubin Total 0.9 mg/dL (0.2-1.0)
[2022-02-23 14:14] LABS: Magnesium 2.1 mg/dL (1.8-2.4); Potassium 4.7 mmol/L (3.5-5.1)
[2022-02-23 14:56] LABS: Absolute Lymphocytes (CBC) 0.5 K/uL (0.7-4.9); Hematocrit 42.6 % (36.0-45.0); Lymphocytes % 5.3 % (15.3-44.8); MCV 93.4 fL (80-100); MPV 9.4 fL (7.6-11.3); RBC Red Blood Cell Count 4.56 M/uL (3.86-4.86)
[2022-02-23 15:20] VITALS: O2SAT 96
[2022-02-23] MEDS: metroNIDAZOLE 500 MG TABLET PO SCH ×3 (16:54→20:54)
[2022-02-23] MEDS: CIPROFLOXACIN HCL 500 MG TAB PO SCH ×2 (20:43→20:54)
[2022-02-23] MEDS ORDERED: ACETAMINOPHEN 325 MG TABLET PO PRN (20:57)
[2022-02-23 21:44] LABS: Blood Morphology Comment NOT SEEN (NOT SEEN); Platelet Estimate ADEQ; White Blood Cell Scan OK (OK)
[2022-02-24] MEDS: D5.45NS W/KCL 20MEQ 1,000 ML IV SCH (02:37)
[2022-02-24 08:48] VITALS: BP 156/68; TEMP 97.6
[2022-02-24] MEDS: metroNIDAZOLE 500 MG TABLET PO SCH (09:00)
[2022-02-24] MEDS: CIPROFLOXACIN HCL 500 MG TAB PO SCH (09:00)
--- NOTE | 2022-02-24 09:03 | P.DS ---
Admission Date: 02/21/22 Discharge Date: 02/24/22 Disposition: ROUTINE DISCHARGE Discharge Condition: FAIR Reason for Admission: Small bowel obstruction nausea - Problems (1) SBO (small bowel obstruction) Current Visit: No Status: Acute Brief History of Present Illness: Patient is 81 years of age admitted with small bowel obstruction Hospital Course: Patient was admitted treated conservatively with IV antibiotics seen by Dr. Elizabeth's Patient did well at time of discharge alert oriented responsive eating and drinking and having had a bowel movement chemistries reviewed dilated loops of bowel noted vital signs all stable patient is doing much better today on examination alert oriented responsive cooperative vital signs stable chest clear abdomen soft no rebound tenderness or guarding Vital Signs/Physical Exam: Temp Pulse Resp BP Pulse Ox 97.6 F 63 16 156/68 H 96 02/24/22 08:00 02/24/22 08:00 02/24/22 08:00 02/24/22 08:00 02/24/22 08:00 Laboratory Data at Discharge: WBC 8.90 K/uL (4.3-10.9) 02/23/22 13:21 Hgb 14.2 g/dL (12.0-15.0) 02/23/22 13:21 Hct 42.6 % (36.0-45.0) 02/23/22 13:21 Plt Count 179 K/uL (152-406) 02/23/22 13:21 Sodium 141 mmol/L (136-145) 02/23/22 13:21 Potassium 4.7 mmol/L (3.5-5.1) 02/23/22 13:21 BUN 4 mg/dL (7-18) L 02/23/22 13:21 Creatinine 0.62 mg/dL (0.55-1.3) 02/23/22 13:21 Glucose 119 mg/dL (74-106) H 02/23/22 13:21 Magnesium 2.1 mg/dL (1.8-2.4) 02/23/22 13:21 Total Bilirubin 0.9 mg/dL (0.2-1.0) 02/23/22 13:21 AST 18 U/L (15-37) 02/23/22 13:21 ALT 23 U/L (12-78) 02/23/22 13:21 Alkaline Phosphatase 58 U/L (45-117) 02/23/22 13:21 Lipase 91 U/L (73-393) 02/21/22 01:48 Home Medications: Metoprolol Tartrate 50 mg PO DAILY 05/31/20 Cholecalciferol (Vitamin D3) [Vitamin D 5,000 IU Cap*] 5,000 unit PO DAILY 02/08/21 Fluticasone [Flonase 50MCG Nasal [place]*] 2 sprays NS DAILY 02/08/21 Cyanocobalamin (Vitamin B-12) [Vitamin B12] 2,500 mcg PO DAILY 02/21/22 Pantoprazole Sodium [Protonix] 40 mg PO DAILY 30 Days #30 tab 02/24/22 New Medications: Pantoprazole Sodium [Protonix] 40 mg PO DAILY 30 Days #30 tab Physician Discharge Instructions: Follow-up with Dr. Elizabeth Diet: Tolerated Followup: Cathie Brown MD [Primary Care Provider] -
[2022-02-24] MEDS: CYANOCOBALAMIN 1,000 MCG TAB PO SCH (09:25)
[2022-02-24] MEDS: VITAMIN D 5,000 UNIT CAP PO SCH (09:25)
[2022-02-24] MEDS: METOPROLOL TAR 50 MG TAB PO SCH (09:25)
== END 2022-02-24 10:56 | disposition home or self-care (01) | DRG 390 ==
LOC: ER 00:50 → ERHOLD 04:39 → 4TH 08:49
PROVIDERS: ADMIT Internal Medicine; ATTEND Internal Medicine Sleep Medicine
DX: K56.609 Unspecified intestinal obstruction, unspecified as to partial versus complete obstruction (principal); I10 Essential (primary) hypertension; Z91.09 Other allergy status, other than to drugs and biological substances; Z85.038 Personal history of other malignant neoplasm of large intestine; Z96.651 Presence of right artificial knee joint; Z90.710 Acquired absence of both cervix and uterus; Z79.899 Other long term (current) drug therapy; Z20.822 Contact with and (suspected) exposure to COVID-19
CPT/HCPCS: 36415; 74022; 74177; 80053; 81015; 83690; 83735; 85025; 87811; 96374; 96375; 99284; J0360; J0744; J1170; J2405; J3475; Q9967

== ENCOUNTER 2022-03-01 02:59 | Inpatient (IN) | payer OTHER ==
--- OUTSIDE RECORDS SUMMARY | 2022-03-01 03:01 | XMS REPORT | Continuity of Care Document ---
:1940 Author Organization [facility] Address [address] [place] [address] Dr. Ahumada [address] [place] [id number] Care Team Providers Name Role Phone Cathie [...] ID 2021-12-27 Outpatient Howard, STLMLC [facility] Common 09:29:02 Cathie 0720 [facility] 2021-10-02 Outpatient Howard, STLC [facility] Common 10:31:01 Cathie 0425 [facility] 2021-09-27 Outpatient Howard, STLC [facility] Common 09:47:01 Cathie 0420 [facility] 2021-08-28 Outpatient Howard, STLC [facility] Common 09:31:01 Cathie 0321 [facility] 2021-08-02 Outpatient Howard, STLC [facility] [id number] Common 15:35:01 Cathie 0223 [facility] 2021-07-05 Outpatient Howard, STLC [facility] [id number] Common 14:39:06 Cathie 0124 [facility] 2021-07-[address] [facility] [id number] 1 Common 14:26:43 1220 [facility] 2021-07-05 Outpatient Pastor, Na STLMLC [facility] [id number] 1 Common 14:07:35 1102 [facility] 2021-07-05 Outpatient Pastor, Na STLMLC [facility] [id number] 1 Common 14:05:50 1027 [facility] 2021-07-05 Outpatient Pastor, Na STLMLC [facility] [id number] 1 Common 13:47:54 0910 [facility] 2021-07-05 Outpatient Pastor, Na STLMLC [facility] [id number] 1 Common 12:56:52 0427 [facility] 2021-07-05 Outpatient Pastor, Na STLMLC [facility] [id number] 1 Common 12:55:06 0422 [facility] 2021-07-05 Outpatient Pastor, Na STLMLC [facility] [id number] 1 Common 12:53:17 0419 [facility] 2021-07-05 Outpatient Pastor, Na STLMLC [facility] [id number] 1 Common 12:26:59 0129 [facility] 2021-07-05 Outpatient Pastor, Na STLMLC [facility] [id number] 1 Common 12:25:37 0126 [facility] 2021-07-05 Outpatient STLMLC [facility] [id number] Common 12:15:16 1221 [facility] 2021-07-05 Outpatient Millender, STLMLC [facility] [id number] Common 11:57:25 [place] 1021 [facility] 2021-07-05 Outpatient Millender, STLMLC [facility] [id number] Common 11:49:44 [place] 0928 [facility] 2021-07-05 Outpatient Millender, STLMLC [facility] [id number] Common 11:47:29 [place] 0920 [facility] 2021-07-05 Outpatient Millender, STLMLC [facility] [id number] Common 11:30:17 [place] 0707 [facility] Results This patient has no known results.
[2022-03-01] MEDS ORDERED: FAMOTIDINE 20 MG/2 ML VIAL IV ONE (03:31)
[2022-03-01] MEDS ORDERED: ONDANSETRON 4 MG/2 ML VIAL ONE ×3 (03:31→18:39)
[2022-03-01] MEDS ORDERED: MORPHINE 4 MG/ML SYR ONE ×2 (03:47→08:25)
[2022-03-01 03:49] LABS: Urine Blood Trace-lysed (Negative); Urine Glucose Negative (Negative); Urine Protein Negative (Negative); Urine Specific Gravity 1.025 (1.005-1.030); Urine pH 5.5 (5.0-7.0)
[2022-03-01 04:15] LABS: Urine Bacteria <20 /HPF (<20); Urine RBC <5 /HPF (None Seen)
[2022-03-01 04:16] LABS: Absolute Lymphocytes (CBC) 0.4 K/uL (0.7-4.9); Hematocrit 42.1 % (36.0-45.0); MCV 91.2 fL (80-100); MPV 8.6 fL (7.6-11.3); RBC Red Blood Cell Count 4.62 M/uL (3.86-4.86)
[2022-03-01 04:25] LABS: Albumin 3.9 g/dL (3.4-5.0); Bilirubin Total 1.1 mg/dL (0.2-1.0); Potassium 3.7 mmol/L (3.5-5.1); Protein, Total 7.1 g/dL (6.4-8.2)
--- NOTE | 2022-03-01 06:35 | ER ---
Nurse's Notes [facility] Name: Candice Silva Age: 81 yrs Sex: Female : 1940 Arrival Date: 03/01/2022 Time: 03:00 Bed 25 Private MD: Diagnosis: Bowel obstruction;Abdominal pain, Generalized Presentation: 03/01 03:26 Chief complaint: Patient states: she was discharged last Saturday after a GI blockage bb and was home for a few days then last night the pain started up again. Coronavirus screen: At this time, the client does not indicate any symptoms associated with coronavirus-19. Ebola Screen: No symptoms or risks identified at this time. Initial Sepsis Screen: Does the patient meet any 2 criteria? No. Patient's initial sepsis screen is negative. Does the patient have a suspected source of infection? Yes: Acute abdominal pain. Risk Assessment: Do you want to hurt yourself or someone else? Patient reports no desire to harm self or others. Onset of symptoms was February 28, 2022. 03:26 Method Of Arrival: Ambulatory bb 03:26 Acuity: HAILEY 3 bb Triage Assessment: 03:42 General: Appears uncomfortable, Behavior is calm, cooperative, appropriate for age. tw5 Historical: - Allergies: 03:29 tree pollen; bb - Home Meds: 03:29 atorvastatin 40 mg Oral tab 1 tab once daily [Active]; losartan Oral once daily bb [Active]; metoprolol ta-hydrochlorothiaz 50-25 mg Oral tab 1 tab once daily [Active]; - PMHx: 03:29 Arthritis; bowel obstruction; colon cancer; Hypercholesterolemia; Hypertension; bb - PSHx: 03:29 Colorectal SX; Right knee replacement; Total abdominal hysterectomy; bb - Immunization history:: Moderna x 3. - Social history:: Smoking status: Patient denies any tobacco usage or history of. Screenin:42 Abuse screen: Denies threats or abuse. Denies injuries from another. Nutritional tw5 screening: No deficits noted. Tuberculosis screening: No symptoms or risk factors identified. Fall Risk Secondary diagnosis (15 points). Assessment: 03:41 General: Appears in no apparent distress. Behavior is calm, cooperative, appropriate tw5 for age. Pain: Pain currently is 9 out of 10 on a pain scale. Neuro: Level of Consciousness is awake, alert, obeys commands, Oriented to person, place, time, situation. 03:42 Cardiovascular: No deficits noted. Respiratory: No deficits noted. GI: Abdomen is tw5 non-distended, Bowel sounds hypoactive in right lower quadrant and left lower quadrant Reports nausea. 04:55 Reassessment: Patient appears in no apparent distress at this time. Patient and/or jb4 family updated on plan of care and expected duration. Pain level reassessed. Patient is alert, oriented x 3, equal unlabored respirations, skin warm/dry/pink. Pt to CT. 07:00 Reassessment: RECD REPORT FROM CALLIE COLE. 81YO WF P/W RECURRENT PARTIAL SBO. ADMIT IN bp PROCESS. 09:00 Reassessment: ADMIT IN PROCESS. bp 10:00 Reassessment: PT ER HOLD, SEE [facility]. bp Vital Signs: 03:26 Weight 74.84 kg (R); Height 5 ft. 6 in. (167.64 cm) (R); Pain 9/10; bb 03:41 BP 152 / 80; Pulse 81; Resp 18; Temp 97.7; Pulse Ox 100% ; Weight 74.84 kg; Height 5 tw5 ft. 6 in. (167.64 cm); Pain 8/10; 03:55 BP 136 / 76; Pulse 75; Resp 18; Pulse Ox 98% on R/A; tw5 04:45 BP 129 / 57; Pulse 56; Resp 16; Pulse Ox 95% on R/A; jb4 08:00 BP 170 / 81; Pulse 86; Resp 16; Pulse Ox 95% ; bp 10:00 BP 125 / 61; Pulse 62; Resp 16; Pulse Ox 97% ; bp 03:41 Body Mass Index 26.63 (74.84 kg, 167.64 cm) tw5 ED Course: 03:00 Patient arrived in ED. bp1 03:05 Ivan Lafleur DO is Attending Physician. ms3 03:20 Callie Young is Primary Nurse. tw5 03:29 Triage completed. bb 03:29 Arm band placed on Patient placed in an exam room, on a stretcher, on pulse oximetry. bb 03:42 Patient has correct armband on for positive identification. Placed in gown. Bed in low tw5 position. Call light in reach. Side rails up X 1. Pulse ox on. NIBP on. Door closed. Noise minimized. Moved to private room. Warm blanket given. Verbal reassurance given. 03:42 Urine collected: clean catch specimen. tw5 03:50 Urine Microscopic Only Sent. tw 03:50 CBC with Diff Sent. tw 03:50 CMP Sent. tw 03:50 Lipase Sent. tw5 03:50 Initial lab(s) drawn, by me, sent to lab. Inserted saline lock: 20 gauge in right tw5 antecubital area, using aseptic technique. Blood collected. 05:24 CT Abd/Pelvis - IV Contrast Only In Process Unspecified. EDMS 06:33 Nora Chicas MD is Hospitalizing Provider. ms3 10:20 No provider procedures requiring assistance completed. Patient admitted, IV remains in bp place. 19:27 Primary Nurse role handed off by Callie Young ll3 19:27 Nathan Dobson, KELSEY is Primary Nurse. ll3 Administered Medications: 03:55 Drug: Pepcid (famotidine) 20 mg Route: IVP; Site: right antecubital; tw5 10:21 Follow up: Response: No adverse reaction bp 03:55 Drug: Zofran (Ondansetron) 4 mg Route: IVP; Site: right antecubital; tw5 10:21 Follow up: Response: No adverse reaction bp 03:55 Drug: morphine 4 mg Route: IVP; Infused Over: 4 mins; Site: right antecubital; tw5 10:21 Follow up: Response: Pain is decreased bp 08:00 Drug: Zosyn (piperacillin-tazobactam) 3.375 grams Route: IVPB; Infused Over: 60 mins; bp Site: right antecubital; 10:21 Follow up: IV Status: Infusion continued; IV Intake: 100ml bp 08:17 Drug: morphine 4 mg Route: IVP; Infused Over: 4 mins; Site: right antecubital; bp 10:21 Follow up: Response: Pain is decreased bp 08:18 Drug: Zofran (Ondansetron) 4 mg Route: IVP; Site: right antecubital; bp 10:21 Follow up: Response: No adverse reaction bp Medication: 03:42 VIS not applicable for this client. tw5 Intake: 10:21 IV: 100ml; Total: 100ml. bp Outcome: 06:34 Decision to Hospitalize by Provider. ms3 10:20 Admitted to ER Hold. Please see [facility] for further documentation. bp 10:20 Condition: stable 10:20 Instructed on the need for admit. 03/02 06:42 Patient left the ED. tw5 Signatures: Dispatcher [employer] EDMS Kayla Milligan, RN RN bb Braxton Turner RN RN jb4 Anton Gama RN RN bp Ivan Lafleur, DO [place] ms3 Enma Webb Tiffany tw5 Nathan Dobson RN RN ll3
--- NOTE | 2022-03-01 06:35 | EDPHYS ---
Physician Documentation [facility] Name: Candice Silva Age: 81 yrs Sex: Female : 1940 Arrival Date: 03/01/2022 Time: 03:00 Bed 25 Private MD: ED Physician Ivan Lafleur HPI: 03/01 08:17 This 81 yrs old Female presents to ER via Ambulatory with complaints of GI blockage. ms3 08:17 81-year-old female with past medical history of arthritis, bowel obstruction, colon ms3 cancer, hypercholesterolemia presents for abdominal pain that began last night. Patient states her pain is a 9/10 and described as "hurts." Patient endorses nausea. Patient denies vomiting, fevers, chills. Historical: - Allergies: 03:29 tree pollen; bb - Home Meds: 03:29 atorvastatin 40 mg Oral tab 1 tab once daily [Active]; losartan Oral once daily bb [Active]; metoprolol ta-hydrochlorothiaz 50-25 mg Oral tab 1 tab once daily [Active]; - PMHx: 03:29 Arthritis; bowel obstruction; colon cancer; Hypercholesterolemia; Hypertension; bb - PSHx: 03:29 Colorectal SX; Right knee replacement; Total abdominal hysterectomy; bb - Immunization history:: Moderna x 3. - Social history:: Smoking status: Patient denies any tobacco usage or history of. ROS: 08:17 Constitutional: Negative for fever, and chills. ENT: Negative for injury, pain, and ms3 discharge, Neck: Negative for injury, pain, and swelling, Cardiovascular: Negative for chest pain, and palpitations. Respiratory: Negative for shortness of breath, cough, wheezing, and pleuritic chest pain. 08:17 Back: Negative for injury and pain, MS/Extremity: Negative for injury and deformity, Skin: Negative for injury, rash, and discoloration, Neuro: Negative for headache, weakness, numbness, tingling. Psych: Negative for depression, anxiety, suicide ideation, homicidal ideation, and hallucinations. 08:17 Abdomen/GI: Positive for abdominal pain, nausea. Exam: 08:17 Constitutional: This is a well developed, well nourished patient who is awake, alert, ms3 and in no acute distress. Head/Face: Normocephalic, atraumatic. Chest/axilla: Normal chest wall appearance and motion. Nontender with no deformity. Cardiovascular: Regular rate and rhythm with a normal S1 and S2. No gallops, murmurs, or rubs. Normal PMI, no JVD. No pulse deficits. Respiratory: Lungs have equal breath sounds bilaterally, clear to auscultation and percussion. No rales, rhonchi or wheezes noted. No increased work of breathing, no retractions or nasal flaring. 08:17 Skin: Warm, dry with normal turgor. Normal color with no rashes, no lesions, and no evidence of cellulitis. Neuro: Awake and alert, GCS 15, oriented to person, place, time, and situation. Cranial nerves II-XII grossly intact. Motor strength 5/5 in all extremities. Sensory grossly intact. Cerebellar exam normal. Normal gait. Psych: Awake, alert, with orientation to person, place and time. Behavior, mood, and affect are within normal limits. 08:17 Abdomen/GI: Inspection: abdomen appears normal, Bowel sounds: diminished, in all quadrants, Palpation: moderate abdominal tenderness, in all quadrants. Vital Signs: 03:26 Weight 74.84 kg (R); Height 5 ft. 6 in. (167.64 cm) (R); Pain 9/10; bb 03:41 BP 152 / 80; Pulse 81; Resp 18; Temp 97.7; Pulse Ox 100% ; Weight 74.84 kg; Height 5 tw5 ft. 6 in. (167.64 cm); Pain 8/10; 03:55 BP 136 / 76; Pulse 75; Resp 18; Pulse Ox 98% on R/A; tw5 04:45 BP 129 / 57; Pulse 56; Resp 16; Pulse Ox 95% on R/A; jb4 08:00 BP 170 / 81; Pulse 86; Resp 16; Pulse Ox 95% ; bp 10:00 BP 125 / 61; Pulse 62; Resp 16; Pulse Ox 97% ; bp 03:41 Body Mass Index 26.63 (74.84 kg, 167.64 cm) tw5 MDM: 03:42 Patient medically screened. ms3 08:17 Differential diagnosis: bowel obstruction, Mesenteric ischemia or infarction, ms3 non-specific abd pain. 08:21 Data reviewed: vital signs, nurses notes, lab test result(s), radiologic studies, and ms3 as a result, I will admit patient. Counseling: I had a detailed discussion with the patient and/or guardian regarding: the historical points, exam findings, and any diagnostic results supporting the discharge/admit diagnosis, lab results, radiology results, the need for further work-up and treatment in the hospital. ED course: Discussed CT findings of bowel obstruction with patient. Discussed case with Dr. Joyce and he accepts patient as admission. Discussed case with Dr. Zamora and he will consult on patient.. 03/01 03:07 Order name: CBC with Diff; Complete Time: 04:31 ms3 03/01 03:07 Order name: CMP; Complete Time: 04:31 ms3 03/01 03:07 Order name: Lipase; Complete Time: 04:31 ms3 03/01 03:07 Order name: Urine Microscopic Only; Complete Time: 04:31 ms3 03/01 03:50 Order name: Urine Dipstick-Ancillary; Complete Time: 04:31 EDMS 03/01 06:05 Order name: Lactate; Complete Time: 08:20 ms3 03/01 07:03 Order name: Blood Culture Adult (2) ms3 03/01 08:35 Order name: CBC with Automated Diff EDMS 03/01 08:35 Order name: CBC with Automated Diff EDMS 03/01 08:35 Order name: Comprehensive Metabolic Panel EDMS 03/01 08:35 Order name: Comprehensive Metabolic Panel EDMS 03/01 08:35 Order name: Protime (+INR) EDMS 03/01 08:35 Order name: Protime (+INR) EDMS 03/01 08:35 Order name: PTT, Activated Partial Thromb EDMS 03/01 03:07 Order name: CT Abd/Pelvis - IV Contrast Only ms3 03/01 03:07 Order name: IV Saline Lock; Complete Time: 03:50 ms3 03/01 03:07 Order name: Labs collected and sent; Complete Time: 03:50 ms3 03/01 03:07 Order name: Urine Dipstick-Ancillary (obtain specimen); Complete Time: 03:50 ms3 03/01 07:37 Order name: NPO; Complete Time: 08:17 ms3 03/01 08:35 Order name: CONS Physician Consult MS 03/01 08:35 Order name: NPO EDMS 03/01 08:35 Order name: PTT, Activated Partial Thromb EDMS 03/01 08:52 Order name: SARS RAPID em1 03/01 09:47 Order name: SARS-COV-2 Antigen Rapid; Complete Time: 02:03 EDMS Administered Medications: 03:55 Drug: Pepcid (famotidine) 20 mg Route: IVP; Site: right antecubital; tw5 10:21 Follow up: Response: No adverse reaction bp 03:55 Drug: Zofran (Ondansetron) 4 mg Route: IVP; Site: right antecubital; tw5 10:21 Follow up: Response: No adverse reaction bp 03:55 Drug: morphine 4 mg Route: IVP; Infused Over: 4 mins; Site: right antecubital; tw5 10:21 Follow up: Response: Pain is decreased bp 08:00 Drug: Zosyn (piperacillin-tazobactam) 3.375 grams Route: IVPB; Infused Over: 60 mins; bp Site: right antecubital; 10:21 Follow up: IV Status: Infusion continued; IV Intake: 100ml bp 08:17 Drug: morphine 4 mg Route: IVP; Infused Over: 4 mins; Site: right antecubital; bp 10:21 Follow up: Response: Pain is decreased bp 08:18 Drug: Zofran (Ondansetron) 4 mg Route: IVP; Site: right antecubital; bp 10:21 Follow up: Response: No adverse reaction bp Disposition Summary: 03/01/22 06:34 Hospitalization Ordered Hospitalization Status: Inpatient Admission ms3 Provider: Nora Chicas ms3 Condition: Stable ms3 Problem: new ms3 Symptoms: are unchanged ms3 Bed/Room Type: Standard ms3 Location: Telemetry/MedSurg (Inpatient)(03/02/22 05:22) Room Assignment: 202(03/02/22 05:22) Diagnosis - Bowel obstruction ms3 - Abdominal pain, Generalized ms3 Forms: - Medication Reconciliation Form ms3 - SBAR form ms3 Signatures: Dispatcher [employer] EDMS Jenni Vale RN RN mw Ballard, Brenda, RN RN bb Peltier, Brian, RN RN bp Ivan Lafleur DO DO ms3 Callie Young tw5 Corrections: (The following items were deleted from the chart) 10:19 06:34 Telemetry/MedSurg (Inpatient) ms3 bp :34 ms3 bp 03/02 05:03/01 10: [facility] ER HOLD bp mw 03/02 05:03/01 10: ERHOLD- bp mw
[2022-03-01] MEDS ORDERED: NA CHLORIDE 0.9% 250 ML ONE (07:35)
[2022-03-01] MEDS ORDERED: PIPERACIL/TAZO 3.375 GM VIAL IV ONE (07:35)
[2022-03-01] MEDS ORDERED: ACETAMINOPHEN 500 MG TAB PO PRN (08:29)
[2022-03-01] MEDS ORDERED: MORPHINE 2 MG/ML SYR IV PRN (08:34)
[2022-03-01] MEDS: Levofloxacin500mg IV 500 MG/100 ML BAG IV SCH (09:00)
[2022-03-01] MEDS: Ringers Lactate 1,000 ML IV SCH ×2 (09:00→18:45)
[2022-03-01 09:47] LABS: SARS-CoV-2 Antigen Rapid Res Negative (Negative)
[2022-03-01] MEDS ORDERED: Levofloxacin500mg IV 500 MG/100 ML BAG IV ONE (10:35)
[2022-03-01] MEDS ORDERED: Ringers Lactate 1,000 ML IV ONE ×2 (10:35→18:39)
[2022-03-01 10:41] VITALS: BMI 26.6
[2022-03-01] MEDS: METRONIDAZOLE 500mg IVPB 500 MG/100 ML BAG IV SCH ×2 (12:00→18:00)
--- NOTE | 2022-03-01 14:02 | RAD REPORT ---
EXAM DESCRIPTION: ADDENDUM #1 Addendum: Dr. Marion discussed these critical findings with Dr. Ivan Lafleur via telephone at approximately 06:02 hours DIRECTOR PACKAGING on 03/01/2022. Electronically signed by: Yehuda Marion MD 03/01/2022 6:03 AM CDT End of Addendum EXAM DESCRIPTION: CT Abdomen and Pelvis With Intravenous Contrast CLINICAL HISTORY: The patient is 81 years old and is Female; Abdominal pain, acute, nonlocalized TECHNIQUE: Axial computed tomography images of the abdomen and pelvis with intravenous contrast. S agittal and coronal reformatted images were created and reviewed. This CT exam was performed using one or more of the following dose reduction techniques: automated exposure control, adjustment of t he mA and/or kV according to patient size, and/or use of iterative reconstruction technique. COMPARISON: 02/21/2022 CT abdomen pelvis with contrast FINDINGS: LUNG BASES: Unremarkable. No mass. No consolidation. MEDIASTINUM: Mitral annular calcification. Small hiatal hernia. ABDOMEN: LIVER: Unremarkable. No mass. GALLBLADDER AND BILE DUCTS: Unremarkable. No calcified stones. No ductal dilation. PANCREAS: Unremarkable. No mass. No ductal dilation. SPLEEN: Unremarkable. No splenomegaly. ADRENALS: Unremarkable. No mass. KIDNEYS AND URETERS: 1.1 cm nonobstructive intrarenal stone redemonstrated in the inferior pole the left kidney. STOMACH AND BOWEL: Colonic anastomoses demonstrated in the right lower quadrant and distal rectum. No colonic dilatation to suggest obstruction. There are multiple loops of dilated proximal to mid sma ll bowel in the left mid abdomen and lower quadrant, measuring up to 3.7 cm in diameter, without an a brupt transition point, though there is a relative transition in the right hemipelvis (series CT #501 , axial images 61 through 65) which appears unchanged from reference exam. No portal or overt mesente maria alejandra venous gas is identified, though there may be a tiny focus of early mesenteric venous gas in the left lower quadrant (series CT #501, axial image 53; series CT #503, sagittal image 86). Additional loops of mid to distal small bowel demonstrate circumferential mucosal thickening in the r ight lower quadrant, similar to slightly increased from reference exam. PELVIS: APPENDIX: No findings to suggest acute appendicitis. BLADDER: Unremarkable. No mass. REPRODUCTIVE: Hysterectomy. ABDOMEN and PELVIS: INTRAPERITONEAL SPACE: Small-volume perihepatic and perisplenic free fluid, with additional mesente maria alejandra stranding, mesenteric free fluid, and small volume free fluid layering within the pelvis, increas ed from reference exam. No gross pneumoperitoneum. BONES/JOINTS: No acute fracture. No dislocation. SOFT TISSUES: Unremarkable. VASCULATURE: Unremarkable. No abdominal aortic aneurysm. LYMPH NODES: Unremarkable. No enlarged lymph nodes. IMPRESSION: Slight progression of proximal to mid small bowel dilatation, with relative transition i n the right hemipelvis, suspicious for at least partial bowel obstruction. In conjunction with the in creasing small volume abdominopelvic ascites and possible early mesenteric venous gas, this is suspic ious for early bowel ischemia. Surgical consultation recommended. Electronically signed by: Yehuda Marion MD 03/01/2022 5:57 AM CDT Due to temporary technical issues with the PACS/Fluency reporting system, reports are being signed by the in house radiologists without review as a courtesy to insure prompt reporting. The interpreting radiologist is fully responsible for the content of the report.
[2022-03-01] MEDS ORDERED: METRONIDAZOLE 500mg IVPB 500 MG/100 ML BAG IV ONE ×2 (14:23→18:39)
[2022-03-01] MEDS: ONDANSETRON 4 MG/2 ML VIAL IV PRN (18:00)
[2022-03-01] MEDS ORDERED: MORPHINE 2 MG/ML SYR ONE (18:39)
[2022-03-02] MEDS ORDERED: METRONIDAZOLE 500mg IVPB 500 MG/100 ML BAG IV ONE ×2 (00:19→06:40)
[2022-03-02] MEDS ORDERED: Ringers Lactate 1,000 ML IV ONE (02:26)
--- NOTE | 2022-03-02 03:10 | P.HP ---
Certification for Inpatient Patient admitted to: Inpatient With expected LOS: >2 Midnights Patient will require the following post-hospital care: None Practitioner: I am a practitioner with admitting privileges, knowledge of patient current condition, hospital course, and medical plan of care. Services: Services provided to patient in accordance with Admission requirements found in Title 42 Section 412.3 of the Code of Federal Regulations Patient History Date of Service: 03/01/22 Reason for admission: CONCERN FOR MESENTERIC ISCHEMIA; SMALL-BOWEL OBSTRUCTION History of Present Illness: patient is a 81-year-old female who comes into the hospital with a small-bowel obstruction. Patient had questionable mesenteric ischemia at as well as concern for gas in the mesenteric venous system. Patient will speech started on IV antibiotics. Will give GI consultation as well. General surgery is on board. Continue with IV hydration. NPO status. Will admit patient for inpatient hospitalization and surgical management. Allergies No Known Allergies Allergy (Verified 09/16/21 05:52) Home Medications: Metoprolol Tartrate 50 mg PO DAILY 05/31/20 Cholecalciferol (Vitamin D3) [Vitamin D 5,000 IU Cap*] 5,000 unit PO DAILY 02/08/21 Fluticasone [Flonase 50MCG Nasal [place]*] 2 sprays NS DAILY 02/08/21 Cyanocobalamin (Vitamin B-12) [Vitamin B12] 2,500 mcg PO DAILY 02/21/22 Pantoprazole Sodium [Protonix] 40 mg PO DAILY 30 Days #30 tab 02/24/22 - Past Medical/Surgical History Has patient received pneumonia vaccine in the past: Yes Diabetic: No -: colon cancer -: hypertension -: seasonal allergies -: Partial colectomy -: SBO -: colon resection with colostomy -: colostomy takedown -: colonoscopy -: breast biopsies Psychosocial/ Personal History: Patient is retired and lives with her - Family History Mother Medical History: Cancer Notes: breast cancer Father Medical History: Heart disease - Social History Smoking Status: Never smoker Place of Residence: Home Review of Systems 10-point ROS is otherwise unremarkable Physical Examination - Vital Signs Temperature: 99 F Blood Pressure: 134/56 Pulse: 70 Respirations: 16 Pulse Ox (%): 96 - Physical Exam General: Alert, In no apparent distress, Oriented x3 HEENT: Atraumatic, PERRLA, Mucous membr. moist/pink, EOMI, Sclerae nonicteric Neck: Supple, 2+ carotid pulse no bruit, No LAD, Without JVD or thyroid abnormality Respiratory: Clear to auscultation bilaterally, Normal air movement Cardiovascular: Regular rate/rhythm, Normal S1 S2 Gastrointestinal: Hypoactive, Soft and benign, Non-distended, No rebound, No guarding, Tenderness Musculoskeletal: No tenderness Integumentary: No rashes Neurological: Normal speech, Normal strength at 5/5 x4 extr, Normal tone, Sensation intact, Cranial nerves 3-12 intact, Normal affect, Abnormal gait Lymphatics: No axilla or inguinal lymphadenopathy - Studies Laboratory Data (last 24 hrs) 03/01/22 03:58: Sodium 139, Potassium 3.7, BUN 20 H, Creatinine 0.94, Glucose 129 H, Total Bilirubin 1.1 H, AST 13 L, ALT 28, Alkaline Phosphatase 77, Lipase 117 03/01/22 03:58: WBC 9.50, Hgb 14.7, Hct 42.1, Plt Count 252 Assessment & Plan - Problems (Diagnosis) (1) SBO (small bowel obstruction) Current Visit: No Status: Acute (2) HTN (hypertension) Current Visit: No Status: Chronic Qualifiers: (3) History of colorectal cancer Current Visit: No Status: Chronic (4) History of partial colectomy Current Visit: No Status: Chronic - Plan plan: 1. Continue with IV fluids 2. Continue with IV antibiotics 3. Pain control 4. Surgery and GI consultation 5. strict blood pressure and blood sugar control 6. Gi DVT prophylaxis Discharge Plan: Home Plan to discharge in: Greater than 2 days - Advance Directives Does patient have a Living Will: No Does patient have a Durable POA for Healthcare: No - Code Status/Comfort Care Code Status Assessed: Yes Code Status: Full Code Critical Care: No Time Spent Managing PTS Care (In Minutes): 45
[2022-03-02 04:40] LABS: Absolute Lymphocytes (CBC) 0.2 K/uL (0.7-4.9); Hematocrit 33.7 % (36.0-45.0); MCV 92.7 fL (80-100); MPV 8.3 fL (7.6-11.3); RBC Red Blood Cell Count 3.63 M/uL (3.86-4.86)
[2022-03-02 04:43] LABS: Protime INR 1.2
[2022-03-02 04:55] LABS: Bilirubin Total 1.2 mg/dL (0.2-1.0); Potassium 3.7 mmol/L (3.5-5.1); Protein, Total 5.8 g/dL (6.4-8.2)
[2022-03-02] MEDS: Ringers Lactate 1,000 ML IV SCH ×3 (05:00→15:00)
[2022-03-02] MEDS: METRONIDAZOLE 500mg IVPB 500 MG/100 ML BAG IV SCH ×3 (06:00→17:03)
[2022-03-02 08:16] LABS: Magnesium 1.6 mg/dL (1.8-2.4); Phosphorus 2.9 mg/dL (2.5-4.9)
[2022-03-02] MEDS ORDERED: KCL 20 MEQ/100 mL IVPB 20 MEQ/100 ML BAG IV SCH (09:00)
[2022-03-02] MEDS ORDERED: MAGNESIUM SULFATE 1 gm IVPB 1 GM/100 ML BAG IV ONE (09:00)
[2022-03-02] MEDS: Levofloxacin500mg IV 500 MG/100 ML BAG IV SCH (09:28)
[2022-03-02] MEDS: ONDANSETRON 4 MG/2 ML VIAL IV PRN (09:32)
--- NOTE | 2022-03-02 09:52 | P.PN ---
Subjective Date of Service: 03/02/22 Chief Complaint: CONCERN FOR MESENTERIC ISCHEMIA; SMALL-BOWEL OBSTRUCTION Subjective: Improving (passing gas, no BM, ambulatory, nausea, pain much improved) Physical Examination - Vital Signs Temperature: 97.6 F Blood Pressure: 147/64 Pulse: 60 Respirations: 18 Pulse Ox (%): 97 - Physical Exam General: Alert, In no apparent distress, Cooperative Respiratory: Clear to auscultation bilaterally, Normal air movement Gastrointestinal: Other (soft, mild TTP, tympanic, minimal distention.well healed surgical scars.) Assessment And Plan - Current Problems (Diagnosis) (1) SBO (small bowel obstruction) Current Visit: No Status: Acute Plan: - Continue serial exams - medical management - ice chips only - ambulate with assist - incentive spirometry
[2022-03-02] MEDS: Levofloxacin 750mg IV 750 MG/150 ML BAG IV SCH (11:00)
--- NOTE | 2022-03-02 16:36 | CON ---
Date of Consultation: 03/02/2022 Brief History Of Present Illness: Patient is a 81-year-old female, who was recently discha rged from the hospital where she was admitted on this visit with a small bowel obstruction. She pres ented with a small bowel obstruction at that time on 02/21, I believe. She has had a complex history of multiple abdominal surgeries including colostomy creation, colostomy takedown, partial colectomy with anastomosis. Multiple small bowel obstructions, treated nonoperatively. She states that she we nt home and was feeling well, was eating soft food, but had opted to eat a much larger meal and unfor tunately she felt pain, distention, nausea, vomiting, and constipation similar to her previous bowel obstructions, and as such, when the pain got progressively worse, she came to the emergency room with concerns of a recurrent small bowel obstruction. She had a colectomy before in the past by Dr. Gonzales in [place] with a colostomy creation in the right upper abdomen. She ultimately had her colostomy r eversal with reanastomosis and is unsure of the etiology of the reason for the colectomy, whether it was a large polyp or malignancy or otherwise. She does not see Dr. Gonzales due to insurance changing at this point, she states. Since being brought in the hospital, she continues to have some mild nausea . She has had a bowel movement just prior to arrival in the ER. She has some passage of gas and has minimal symptomatic improvement from the presentation in the hospital. Past Medical History: Significant for colon cancer, hypertension, seasonal allergies, multiple small bowel obstructions. Past Surgical History: Includes colonoscopy, breast biopsy, colostomy creation, colostomy takedown, partial colectomy with anastomosis. Social History: She is retired, lives with her . She denies smoking, alcohol, or recreationa l drug use. Allergies: NO KNOWN DRUG ALLERGIES. Home Medications: Include metoprolol, Ultram, vitamin D, Flonase, zinc, [place], probiotic. Family History: Significant for breast cancer in her mother. 10-point review of systems other than HPI, she currently denies. Physical Examination: At the time of my examination, General: She is awake, alert, and oriented. Psychiatric: She is appropriate. Conversive. HEENT: Normocephalic. Sclerae anicteric. Mucous membranes are moist. Oropharynx clear. Neck: Supple without JVD. Chest: Normal expansion and excursion. Cardiovascular: Regular rate and rhythm. Pulmonary: Clear to auscultation bilaterally. Abdomen: Soft with mild global tenderness to palpation. Her abdomen is tympanic slightly. There ar e no peritoneal signs. Well-healed surgical scars were evident. Extremities: No clubbing, cyanosis, or edema. Skin: Warm and dry. Laboratory Data: Revealed a white blood cell count of 9.5, hemoglobin is 14.7 over hematocrit of 42. 1, platelet count is 252, neutrophils are 88%. Sodium 139, potassium 3.7, chloride 107, carbon dioxi de 24, BUN 20, creatinine 0.94, glucose is 129. Lactic acid is 1.1. Her total bilirubin 1.1, AST 13 , ALT 28, alkaline phosphatase is 77, lipase is 117. Her COVID was negative. She had a CT scan for the abdomen and pelvis which was officially read on 03/01/2022 as slight progression of proximal to m id small bowel dilatation with relative transitioning in the right hemipelvis suspicious for at least partial small bowel obstruction in conjunction with increased small volume abdominopelvic ascites an d possible early mesenteric venous gas suspicious for possible early bowel ischemia. Assessment And Plan: This is a 81-year-old female, who comes in with a recurrent small bowel obstruc tion. 1.IV fluid hydration. 2.Antibiotic coverage. 3.Hemodynamic optimization. 4.I do not find that the patient has evidence of acute surgical abdomen at this point. As such, we will try medical management/nonoperative management for her small bowel obstruction as she has been s uccessful many times before in the past. I have reviewed a low residue diet ultimately that she lonnie ld probably consider using in the halfway. However, I have recommended n.p.o. at this point and we will likely progress to a liquid and soft diet with the supplementation of protein shakes to meet nu tritional goals and as an outpatient. Patient agrees to proceed as indicated. Thank you for this interesting consult. CORTNEY/YARIEL Voice ID: [id number] Report ID: [id number]
[2022-03-03] MEDS: Ringers Lactate 1,000 ML IV SCH ×2 (00:23→12:07)
[2022-03-03] MEDS: METRONIDAZOLE 500mg IVPB 500 MG/100 ML BAG IV SCH ×3 (00:25→15:38)
[2022-03-03 05:41] LABS: Absolute Lymphocytes (CBC) 0.3 K/uL (0.7-4.9); Hematocrit 36.1 % (36.0-45.0); Lymphocytes % 9.5 % (15.3-44.8); MCV 91.7 fL (80-100); MPV 8.1 fL (7.6-11.3); RBC Red Blood Cell Count 3.94 M/uL (3.86-4.86)
[2022-03-03 05:50] LABS: Magnesium 1.8 mg/dL (1.8-2.4); Potassium 3.8 mmol/L (3.5-5.1)
[2022-03-03] MEDS ORDERED: MAGNESIUM SULFATE 1 gm IVPB 1 GM/100 ML BAG IV ONE (07:00)
--- NOTE | 2022-03-03 07:49 | RAD REPORT ---
EXAM DESCRIPTION: RAD - Abdomen 1 View (KUB) - 03/03/2022 7:15 am CLINICAL HISTORY: SBO-microperforation Pain COMPARISON: Abdomen Pelvis W Contrast dated 03/01/2022 FINDINGS: No significant small bowel distention is visualized by plain radiograph. Moderate stool is present in the right colon. No free air is seen. No suspicious calcifications. No significant bony findings. IMPRESSION: No significant SBO pattern is observed on plain radiograph.
[2022-03-03] MEDS ORDERED: KCL 20 MEQ/100 mL IVPB 20 MEQ/100 ML BAG IV SCH (08:00)
[2022-03-03 08:32] LABS: Phosphorus 2.9 mg/dL (2.5-4.9)
[2022-03-03] MEDS: Levofloxacin 750mg IV 750 MG/150 ML BAG IV SCH (12:02)
--- NOTE | 2022-03-03 14:36 | P.PN ---
Subjective Date of Service: 03/02/22 Subjective: No new changes, No C/O voiced, Improving Review of Systems 10-point ROS is otherwise unremarkable Physical Examination - Vital Signs Temperature: 98.1 F Blood Pressure: 170/69 Pulse: 67 Respirations: 16 Pulse Ox (%): 96 - Physical Exam General: Alert, In no apparent distress, Oriented x3 HEENT: Atraumatic, PERRLA, EOMI Neck: Supple, JVD not distended Respiratory: Clear to auscultation bilaterally, Normal air movement Cardiovascular: Regular rate/rhythm, Normal S1 S2 Gastrointestinal: Normal bowel sounds, No tenderness Musculoskeletal: No tenderness Integumentary: No rashes Neurological: Normal speech, Normal tone, Normal affect Lymphatics: No axilla or inguinal lymphadenopathy - Studies Medications List Reviewed: Yes Assessment & Plan - Problems (Diagnosis) (1) SBO (small bowel obstruction) Current Visit: No Status: Acute (2) HTN (hypertension) Current Visit: No Status: Chronic Qualifiers: (3) History of colorectal cancer Current Visit: No Status: Chronic (4) History of partial colectomy Current Visit: No Status: Chronic - Plan plan: Plan of care as mentioned below: 1. Continue with IV fluids 2. Continue with IV antibiotics 3. Pain control 4. Appreciate surgical consultation; advance diet as tolerated 5. strict blood pressure and blood sugar control 6. Gi DVT prophylaxis Discharge Plan: Home Plan to discharge in: 24 Hours - Advance Directives Does patient have a Living Will: No Does patient have a Durable POA for Healthcare: No - Code Status/Comfort Care Code Status: Full Code Critical Care: No Time Spent Managing PTS Care (In Minutes): 35
--- NOTE | 2022-03-03 14:41 | P.DS ---
Discharge Date: 03/03/22 Reason for Admission: CONCERN FOR MESENTERIC ISCHEMIA; SMALL-BOWEL OBSTRUCTION Consultations: General surgery - Problems (1) SBO (small bowel obstruction) Current Visit: No Status: Acute (2) HTN (hypertension) Current Visit: No Status: Chronic Qualifiers: (3) History of colorectal cancer Current Visit: No Status: Chronic (4) History of partial colectomy Current Visit: No Status: Chronic Brief History of Present Illness: patient is a 81-year-old female who comes into the hospital with a small-bowel obstruction. Patient had questionable mesenteric ischemia at as well as concern for gas in the mesenteric venous system. Patient will speech started on IV antibiotics. Will give GI consultation as well. General surgery is on board. Continue with IV hydration. NPO status. Will admit patient for inpatient hospitalization and surgical management. Hospital Course: Patient is doing well during hospitalization. She is tolerating diet. Small bowel obstruction is relieved. She is going to go home and we will follow-up as an outpatient. Outpatient general surgery follow-up. Vital Signs/Physical Exam: Temp Pulse Resp BP Pulse Ox 98.1 F 67 16 170/69 H 96 03/03/22 14:36 03/03/22 14:36 03/03/22 14:36 03/03/22 14:36 03/03/22 14:36 General: Alert, In no apparent distress, Oriented x3 Laboratory Data at Discharge: WBC 3.40 K/uL (4.3-10.9) L 03/03/22 05:25 Hgb 12.6 g/dL (12.0-15.0) 03/03/22 05:25 Hct 36.1 % (36.0-45.0) 03/03/22 05:25 Plt Count 170 K/uL (152-406) 03/03/22 05:25 PT 13.3 SECONDS (9.5-12.5) H 03/02/22 03:56 INR 1.20 03/02/22 03:56 APTT 26.8 SECONDS (24.3-36.9) 03/02/22 03:56 Sodium 139 mmol/L (136-145) 03/03/22 05:25 Potassium 3.8 mmol/L (3.5-5.1) 03/03/22 05:25 BUN 6 mg/dL (7-18) L 03/03/22 05:25 Creatinine 0.64 mg/dL (0.55-1.3) 03/03/22 05:25 Glucose 111 mg/dL (74-106) H 03/03/22 05:25 Phosphorus 2.9 mg/dL (2.5-4.9) 03/03/22 05:25 Magnesium 1.8 mg/dL (1.8-2.4) 03/03/22 05:25 Total Bilirubin 1.2 mg/dL (0.2-1.0) H 03/02/22 03:56 AST 7 U/L (15-37) L 03/02/22 03:56 ALT 18 U/L (12-78) 03/02/22 03:56 Alkaline Phosphatase 45 U/L (45-117) D 03/02/22 03:56 Lipase 117 U/L (73-393) 03/01/22 03:58 Home Medications: Metoprolol Tartrate 50 mg PO DAILY 05/31/20 Cholecalciferol (Vitamin D3) [Vitamin D 5,000 IU Cap*] 5,000 unit PO DAILY 02/08/21 Fluticasone [Flonase 50MCG Nasal [place]*] 2 sprays NS DAILY 02/08/21 Cyanocobalamin (Vitamin B-12) [Vitamin B12] 2,500 mcg PO DAILY 02/21/22 Pantoprazole Sodium [Protonix] 40 mg PO DAILY 30 Days #30 tab 02/24/22 levoFLOXacin [Levaquin] 500 mg PO DAILY #10 tab 03/03/22 metroNIDAZOLE [Flagyl] 500 mg PO Q8H #20 03/03/22 New Medications: metroNIDAZOLE [Flagyl] 500 mg PO Q8H #20 levoFLOXacin [Levaquin] 500 mg PO DAILY #10 tab Physician Discharge Instructions: -DC IV and DC home -Follow-up with PCP in 1 to 2 weeks -Follow-up with Surgery in 1 to 2 weeks -Please call Dr. Chicas at [phone] if any questions regarding hospital stay -Please call nursing station at [phone] if any nursing or medication questions -Return to the emergency room if symptoms worsen Diet: Full liqui Activity: Fall precautions Followup: NONE,NONE [Primary Care Provider] - Time spent managing pt's care (in minutes): 35
[2022-03-03 15:25] VITALS: BP 163/75; TEMP 98.3
[2022-03-03 17:14] VITALS: O2SAT 97
== END 2022-03-03 19:04 | disposition home or self-care (01) | DRG 388 ==
LOC: ER 02:59 → ERHOLD 08:30 → 2ND 03-02 05:27
PROVIDERS: ADMIT Hospitalist; ATTEND Hospitalist
DX: K56.609 Unspecified intestinal obstruction, unspecified as to partial versus complete obstruction (principal); K55.059 Acute (reversible) ischemia of intestine, part and extent unspecified; R18.8 Other ascites; R11.0 Nausea; I10 Essential (primary) hypertension; J30.2 Other seasonal allergic rhinitis; E78.00 Pure hypercholesterolemia, unspecified; M19.90 Unspecified osteoarthritis, unspecified site; Z85.038 Personal history of other malignant neoplasm of large intestine; Z90.49 Acquired absence of other specified parts of digestive tract; Z90.710 Acquired absence of both cervix and uterus; Z96.651 Presence of right artificial knee joint; Z79.899 Other long term (current) drug therapy; Z20.822 Contact with and (suspected) exposure to COVID-19; Z80.3 Family history of malignant neoplasm of breast; Z82.49 Family history of ischemic heart disease and other diseases of the circulatory system
CPT/HCPCS: 36415; 74018; 74177; 80048; 80053; 81003; 81015; 83605; 83690; 83735; 84100; 85025; 85610; 85730; 87040; 87811; 96365; 96366; 96375; 99285; J2270; J2405; J2543; J3475; J3480; J7050; J7120; Q9967

== ENCOUNTER 2022-07-16 | Inpatient (IN) | payer OTHER ==
--- OUTSIDE RECORDS SUMMARY | 2022-07-16 00:04 | XMS REPORT | Continuity of Care Document ---
:1940 Author Organization [facility] Address [address] [place] [address] Dr. Ahumada [address] [place] [id number] Care Team Providers Name Role Phone Cathie Howard Attending Clinician Unavailable Seirra Pastor Attending Clinician Unavailable Juana Quintanilla Attending [...] Facility Department ID 2021-12-27 Outpatient Howard, [facility] Common 09:29:02 Cathie 0720 [facility] 2021-10-02 Outpatient Howard, [facility] Common 10:31:01 Cathie 0425 [facility] 2021-09-27 Outpatient Howard, [facility] Common 09:47:01 Cathie 0420 [facility] 2021-08-28 Outpatient Howard, [facility] Common 09:31:01 Cathie 0321 [facility] 2021-08-02 Outpatient Howard, [facility] [id number] Common 15:35:01 Cathie 0223 [facility] 2021-07-05 Outpatient Howard, [facility] [id number] Common 14:39:06 Cathie 0124 [facility] 2021-07-05 Outpatient Sierra Pastor [facility] [id number] 1 Common 14:26:43 1220 [facility] 2021-07-05 Outpatient Pastor, Na [facility] [id number] 1 Common 14:07:35 1102 [facility] 2021-07-05 Outpatient Pastor, Na [facility] [id number] 1 Common 14:05:50 1027 [facility] 2021-07-05 Outpatient Pastor, Na [facility] [id number] 1 Common 13:47:54 0910 [facility] 2021-07-05 Outpatient Pastor, Na [facility] [id number] 1 Common 12:56:52 0427 [facility] 2021-07-05 Outpatient Pastor, Na [facility] [id number] 1 Common 12:55:06 0422 [facility] 2021-07-05 Outpatient Pastor, Na [facility] [id number] 1 Common 12:53:17 0419 [facility] 2021-07-05 Outpatient Pastor, Na [facility] [id number] 1 Common 12:26:59 0129 [facility] 2021-07-05 Outpatient Pastor, Na [facility] [id number] 1 Common 12:25:37 0126 [facility] 2021-07-05 Outpatient [facility] [id number] Common 12:15:16 1221 [facility] 2021-07-05 Outpatient Millender, [facility] [id number] Common 11:57:25 Juana 1021 [facility] 2021-07-05 Outpatient Millender, [facility] [id number] Common 11:49:44 Juana 0928 [facility] 2021-07-05 Outpatient Millender, [facility] [id number] Common 11:47:29 Juana 0920 [facility] 2021-07-05 Outpatient Millender, [facility] [id number] Common 11:30:17 Juana 0707 [facility] Results This patient has no known results.
[2022-07-16] MEDS ORDERED: NA CHLORIDE 0.9% 1,000 ML ONE (00:32)
[2022-07-16] MEDS ORDERED: MORPHINE 4 MG/ML SYR ONE ×2 (00:32→01:58)
[2022-07-16] MEDS ORDERED: ONDANSETRON 4 MG/2 ML VIAL ONE ×3 (00:32→09:21)
[2022-07-16 00:54] LABS: Absolute Lymphocytes (CBC) 0.6 K/uL (0.7-4.9)
[2022-07-16 00:56] LABS: Protime INR 1.13
[2022-07-16 01:09] LABS: Hematocrit 43.3 % (36.0-45.0); Lymphocytes % 7.7 % (15.3-44.8); MCV 93.9 fL (80-100); MPV 8.7 fL (7.6-11.3); RBC Red Blood Cell Count 4.61 M/uL (3.86-4.86)
[2022-07-16 01:18] LABS: SARS-CoV-2 Antigen Rapid Res Negative (Negative)
[2022-07-16 01:22] LABS: Albumin 4.2 g/dL (3.4-5.0); Bilirubin Direct 0.2 mg/dL (0-0.2); Bilirubin Total 1.1 mg/dL (0.2-1.0); Potassium 3.5 mmol/L (3.5-5.1); Protein, Total 7.4 g/dL (6.4-8.2); Troponin High Sensitivity 7.8 pg/mL (<58.9)
--- NOTE | 2022-07-16 01:35 | ER ---
Nurse's Notes [facility] Name: Candice Silva Age: 81 yrs Sex: Female : 1940 Arrival Date: 07/16/2022 Time: 00:02 Bed 7 Private MD: Diagnosis: Other intestinal obstruction-sbo;Abdominal pain, unspecified;Vomiting Presentation: 07/16 00:31 Chief complaint: Patient states: she started having abdominal pain last night and she bb has a history of bowel obstructions and she thinks this is the same. Coronavirus screen: At this time, the client does not indicate any symptoms associated with coronavirus-19. Ebola Screen: No symptoms or risks identified at this time. Initial Sepsis Screen: Does the patient meet any 2 criteria? No. Patient's initial sepsis screen is negative. Does the patient have a suspected source of infection? No. Patient's initial sepsis screen is negative. Risk Assessment: Do you want to hurt yourself or someone else? Patient reports no desire to harm self or others. Onset of symptoms was July 15, 2022. 00:31 Method Of Arrival: Ambulatory bb 00:31 Acuity: HAILEY 3 bb Historical: - Allergies: 00:38 tree pollen; bb - Home Meds: 00:38 atorvastatin 40 mg Oral tab 1 tab once daily [Active]; Metoprolol Tartrate Oral bb [Active]; vit D3 [Active]; gabapentin oral [Active]; Flonase Nasal [Active]; - PMHx: 00:38 Arthritis; bowel obstruction; colon cancer; Hypercholesterolemia; Hypertension; bb - PSHx: 00:38 Colorectal SX; Right knee replacement; Total abdominal hysterectomy; bb - Immunization history:: Moderna x 3. - Social history:: Smoking status: Patient denies any tobacco usage or history of. - Family history:: not pertinent. Screenin:49 [facility] ED Fall Risk Assessment (Adult) Score/Fall Risk Level 0 - 2 = Low Risk. Abuse as6 screen: Denies threats or abuse. Denies injuries from another. Nutritional screening: No deficits noted. Tuberculosis screening: No symptoms or risk factors identified. Assessment: 00:48 General: Appears uncomfortable, Behavior is calm, cooperative. Pain: Complains of pain as6 in abdomen. Neuro: Level of Consciousness is awake, alert, obeys commands, Oriented to person, place, time, situation. Cardiovascular: Capillary refill < 3 seconds Patient's skin is warm and dry. Respiratory: Respiratory effort is even, unlabored, Respiratory pattern is regular, symmetrical. GI: Pt is actively vomiting bile, Reports lower abdominal pain, upper abdominal pain, nausea, vomiting. 02:03 General: pt crying "please do something. I'm in so much pain" . as6 03:00 General: pt resting comfortably at this time . as6 Vital Signs: 00:31 BP 167 / 93; Pulse 69; Resp 18 S; Temp 97.5(O); Pulse Ox 96% on R/A; Weight 76.2 kg bb (R); Height 5 ft. 6 in. (167.64 cm) (R); Pain 10/10; 01:30 BP 152 / 67; Pulse 61; Resp 18 S; Pulse Ox 95% on R/A; as6 02:30 BP 112 / 58; Pulse 54; Resp 18 S; Pulse Ox 94% on R/A; as6 03:47 BP 107 / 58; Pulse 53; Resp 17 S; Pulse Ox 94% on R/A; as6 00:31 Body Mass Index 27.12 (76.20 kg, 167.64 cm) ED Course: 00:02 Patient arrived in ED. [id number] 00:13 Luis Flanagan, KELSEY is Primary Nurse. as6 00:14 Vernon Abreu MD is Attending Physician. [facility] 00:38 Triage completed. bb 00:38 Arm band placed on Patient placed in an exam room, on a stretcher, on pulse oximetry. bb Family accompanied patient. 00:40 Inserted saline lock: 20 gauge in right antecubital area, using aseptic technique. as6 Blood collected. 00:47 Troponin HS Sent. as6 00:47 PT-INR Sent. as 00:47 NT PRO-BNP Sent. as 00:47 Magnesium Sent. as 00:47 LFT's Sent. 00:47 CBC with Diff Sent. as 00:47 Basic Metabolic Panel Sent. as6 00:47 Lipase Sent. as 00:47 SARS RAPID Sent. as6 00:50 Placed in gown. Bed in low position. Call light in reach. Side rails up X 1. Adult w/ as6 patient. Client placed on continuous cardiac and pulse oximetry monitoring. NIBP monitoring applied. Warm blanket given. 01:01 XRAY Chest (1 view) In Process Unspecified. EDMS 01:32 Mykel Bustillo MD is Hospitalizing Provider. dewey 01:36 Abdomen In Process Unspecified. EDMS 03:45 No provider procedures requiring assistance completed. Patient admitted, IV remains in as6 place. Administered Medications: 00:47 Drug: NS 0.9% 1000 ml Route: IV; Rate: 1 bolus; Site: right antecubital; as6 06:47 Follow up: Response: No adverse reaction; IV Status: Completed infusion; IV Intake: as6 1000ml 00:47 Drug: morphine 4 mg Route: IVP; Infused Over: 4 mins; Site: right antecubital; as6 01:40 Follow up: Response: No adverse reaction; Pain is unchanged, physician notified; RASS: pf1 Alert and Calm (0) 00:47 Drug: Zofran (Ondansetron) 4 mg Route: IVP; Site: right antecubital; as6 01:40 Follow up: Response: No adverse reaction; Nausea unchanged pf1 02:05 Drug: Pepcid (famotidine) 20 mg Route: IVP; Site: right antecubital; pf1 06:46 Follow up: Response: No adverse reaction as6 02:10 Drug: Flagyl (metroNIDAZOLE) 500 mg Volume: 100 ml; Route: IVPB; Rate: 200 ml/hr; pf1 Infused Over: 30 mins; Site: right antecubital; 06:46 Follow up: Response: No adverse reaction; IV Status: Completed infusion; IV Intake: as6 100ml 02:10 Drug: morphine 4 mg Route: IVP; Infused Over: 4 mins; Site: right antecubital; pf1 06:46 Follow up: Response: No adverse reaction as6 02:10 Drug: Zofran (Ondansetron) 4 mg Route: IVP; Site: right antecubital; pf1 06:46 Follow up: Response: No adverse reaction as6 03:05 Drug: Cipro (ciprofloxacin) 400 mg Volume: 200 ml; Route: IVPB; Infused Over: 60 mins; as6 Site: right antecubital; 06:46 Follow up: Response: No adverse reaction; IV Status: Completed infusion; IV Intake: as6 200ml Medication: 02:03 VIS not applicable for this client. as6 Intake: 06:46 IV: 100ml; Total: 100ml. as6 06:46 IV: 200ml; Total: 300ml. as6 06:47 IV: 1000ml; Total: 1300ml. as6 Outcome: 01:34 Decision to Hospitalize by Provider. dewey 03:46 Admitted to ER Hold. Please see [facility] for further documentation. as6 03:46 Condition: stable 03:46 Instructed on the need for admit. 12:26 Patient left the ED. lamin Signatures: Dispatcher [employer] EDAK Vernon Abreu MD MD cha Ballard, Brenda, RN RN Olivia Garvin RN RN [id number] Trinidad Salas Ashby, RN RN as6 Becka jarquin RN RN pf1
--- NOTE | 2022-07-16 01:35 | EDPHYS ---
Physician Documentation [facility] Name: Candice Silva Age: 81 yrs Sex: Female : 1940 Arrival Date: 07/16/2022 Time: 00:02 Bed 7 Private MD: ED Physician Vernon Abreu HPI: 07/16 00:36 This 81 yrs old Female presents to ER via Unassigned with complaints of dewey Nausea/Vomiting. 00:36 The patient presents to the emergency department with nausea, vomiting, abdominal pain, dewey of the right upper quadrant, left upper quadrant, right lower quadrant and left lower quadrant. Onset: The symptoms/episode began/occurred 2 day(s) ago. Possible causes: unknown. The symptoms are aggravated by nothing. The symptoms are alleviated by nothing. Associated signs and symptoms: Pertinent positives: abdominal pain, nausea, vomiting. Severity of symptoms: At their worst the symptoms were moderate in the emergency department the symptoms are unchanged. The patient has experienced similar episodes in the past, multiple times. Historical: - Allergies: 00:38 tree pollen; bb - Home Meds: 00:38 atorvastatin 40 mg Oral tab 1 tab once daily [Active]; Metoprolol Tartrate Oral bb [Active]; vit D3 [Active]; gabapentin oral [Active]; Flonase Nasal [Active]; - PMHx: 00:38 Arthritis; bowel obstruction; colon cancer; Hypercholesterolemia; Hypertension; bb - PSHx: 00:38 Colorectal SX; Right knee replacement; Total abdominal hysterectomy; bb - Immunization history:: Moderna x 3. - Social history:: Smoking status: Patient denies any tobacco usage or history of. - Family history:: not pertinent. ROS: 00:37 Constitutional: Negative for fever, chills, and weight loss, Eyes: Negative for injury, dewey pain, redness, and discharge, ENT: Negative for injury, pain, and discharge, Neck: Negative for injury, pain, and swelling, Cardiovascular: Negative for chest pain, palpitations, and edema, Respiratory: Negative for shortness of breath, cough, wheezing, and pleuritic chest pain, Back: Negative for injury and pain, : Negative for injury, bleeding, discharge, and swelling, MS/Extremity: Negative for injury and deformity, Skin: Negative for injury, rash, and discoloration, Neuro: Negative for headache, weakness, numbness, tingling, and seizure, Psych: Negative for depression, anxiety, suicide ideation, homicidal ideation, and hallucinations, Allergy/Immunology: Negative for hives, rash, and allergies, Endocrine: Negative for neck swelling, polydipsia, polyuria, polyphagia, and marked weight changes, Hematologic/Lymphatic: Negative for swollen nodes, abnormal bleeding, and unusual bruising. 00:37 Abdomen/GI: Positive for abdominal pain, nausea and vomiting, abdominal cramps, abdominal distension, of the right upper quadrant, left upper quadrant, right lower quadrant and left lower quadrant. Exam: 00:37 Constitutional: This is a well developed, well nourished patient who is awake, alert, dewey and in no acute distress. Head/Face: Normocephalic, atraumatic. Eyes: Pupils equal round and reactive to light, extra-ocular motions intact. Lids and lashes normal. Conjunctiva and sclera are non-icteric and not injected. Cornea within normal limits. Periorbital areas with no swelling, redness, or edema. ENT: Nares patent. No nasal discharge, no septal abnormalities noted. Tympanic membranes are normal and external auditory canals are clear. Oropharynx with no redness, swelling, or masses, exudates, or evidence of obstruction, uvula midline. Mucous membranes moist. Neck: Trachea midline, no thyromegaly or masses palpated, and no cervical lymphadenopathy. Supple, full range of motion without nuchal rigidity, or vertebral point tenderness. No Meningismus. Chest/axilla: Normal chest wall appearance and motion. Nontender with no deformity. No lesions are appreciated. Cardiovascular: Regular rate and rhythm with a normal S1 and S2. No gallops, murmurs, or rubs. Normal PMI, no JVD. No pulse deficits. Respiratory: Lungs have equal breath sounds bilaterally, clear to auscultation and percussion. No rales, rhonchi or wheezes noted. No increased work of breathing, no retractions or nasal flaring. Abdomen/GI: Soft, non-tender, with normal bowel sounds. No distension or tympany. No guarding or rebound. No evidence of tenderness throughout. Back: No spinal tenderness. No costovertebral tenderness. Full range of motion. Female : Normal external genitalia. Skin: Warm, dry with normal turgor. Normal color with no rashes, no lesions, and no evidence of cellulitis. MS/ Extremity: Pulses equal, no cyanosis. Neurovascular intact. Full, normal range of motion. Neuro: Awake and alert, GCS 15, oriented to person, place, time, and situation. Cranial nerves II-XII grossly intact. Motor strength 5/5 in all extremities. Sensory grossly intact. Cerebellar exam normal. Normal gait. Psych: Awake, alert, with orientation to person, place and time. Behavior, mood, and affect are within normal limits. 00:37 Abdomen/GI: Inspection: distension, that is moderate, Bowel sounds: active, Palpation: mild abdominal tenderness, in all quadrants, Liver: no appreciated palpable abnormalities, Hernia: not appreciated. 01:10 ECG was reviewed by the Attending Physician. [facility] Vital Signs: 00:31 BP 167 / 93; Pulse 69; Resp 18 S; Temp 97.5(O); Pulse Ox 96% on R/A; Weight 76.2 kg bb (R); Height 5 ft. 6 in. (167.64 cm) (R); Pain 10/10; 01:30 BP 152 / 67; Pulse 61; Resp 18 S; Pulse Ox 95% on R/A; as6 02:30 BP 112 / 58; Pulse 54; Resp 18 S; Pulse Ox 94% on R/A; as6 03:47 BP 107 / 58; Pulse 53; Resp 17 S; Pulse Ox 94% on R/A; as6 00:31 Body Mass Index 27.12 (76.20 kg, 167.64 cm) MDM: 00:14 Patient medically screened. [facility] 00:38 Differential diagnosis: Nonspecific abd pain, gastritis, cholecystitis, pancreatitis, dewey viral gastroenteritis, gastroenteritis. Data reviewed: vital signs, nurses notes, lab test result(s), EKG, radiologic studies, CT scan, plain films. Consideration of Admission/Observation Patient was admitted/placed on observation. Escalation of care including admission/observation considered. I considered the following discharge prescriptions or medication management in the emergency department Medications were administered in the Emergency Department. See MAR. Test considered but Not performed: Ultrasound gallbladder. Historians other than the Patient: Spouse/Significant Other: . 07/16 00:25 Order name: Basic Metabolic Panel; Complete Time: 01:29 [facility] 07/16 00:25 Order name: CBC with Diff; Complete Time: : [facility] 07/16 00:25 Order name: LFT's; Complete Time: : [facility] 07/16 00:25 Order name: Magnesium; Complete Time: : [facility] 07/16 00:25 Order name: NT PRO-BNP; Complete Time: : [facility] 07/16 00:25 Order name: PT-INR; Complete Time: : [facility] 07/16 00:25 Order name: Troponin HS; Complete Time: : [facility] 07/16 00:25 Order name: XRAY Chest (1 view) [facility] 07/16 00:25 Order name: Lipase; Complete Time: : [facility] 07/16 00:25 Order name: SARS RAPID; Complete Time: : [facility] 07/16 00:25 Order name: CT Abd/Pelvis - IV Contrast Only [facility] 07/16 00:30 Order name: Abdomen [facility] 07/16 02:33 Order name: CREATININE WHOLE BLOOD [facility] 07/16 00:25 Order name: EKG; Complete Time: 00:26 [facility] 07/16 00:25 Order name: Cardiac monitoring; Complete Time: 00:47 [facility] 07/16 00:25 Order name: EKG - Nurse/Tech; Complete Time: 00:47 [facility] 07/16 00:25 Order name: IV Saline Lock; Complete Time: 00:47 [facility] 07/16 00:25 Order name: Labs collected and sent; Complete Time: 00:47 [facility] 07/16 00:25 Order name: O2 Per Protocol; Complete Time: 00:47 [facility] 07/16 00:25 Order name: O2 Sat Monitoring; Complete Time: 00:47 [facility] 07/16 01:42 Order name: CONS Physician Consult [facility] 07/16 01:46 Order name: NPO EDNM EC:10 Rate is 72 beats/min. Rhythm is regular. QRS [place] is Normal. ID interval is normal. QRS dewey interval is normal. QT interval is normal. No Q waves. T waves are Normal. No ST changes noted. Clinical impression: NSR w/ Non-specific ST/T Changes and No evidence of ischemia. Interpreted by me. Reviewed by me. Administered Medications: 00:47 Drug: NS 0.9% 1000 ml Route: IV; Rate: 1 bolus; Site: right antecubital; as6 06:47 Follow up: Response: No adverse reaction; IV Status: Completed infusion; IV Intake: as6 1000ml 00:47 Drug: morphine 4 mg Route: IVP; Infused Over: 4 mins; Site: right antecubital; as6 01:40 Follow up: Response: No adverse reaction; Pain is unchanged, physician notified; RASS: pf1 Alert and Calm (0) 00:47 Drug: Zofran (Ondansetron) 4 mg Route: IVP; Site: right antecubital; as6 01:40 Follow up: Response: No adverse reaction; Nausea unchanged pf1 02:05 Drug: Pepcid (famotidine) 20 mg Route: IVP; Site: right antecubital; pf1 06:46 Follow up: Response: No adverse reaction as6 02:10 Drug: Flagyl (metroNIDAZOLE) 500 mg Volume: 100 ml; Route: IVPB; Rate: 200 ml/hr; pf1 Infused Over: 30 mins; Site: right antecubital; 06:46 Follow up: Response: No adverse reaction; IV Status: Completed infusion; IV Intake: as6 100ml 02:10 Drug: morphine 4 mg Route: IVP; Infused Over: 4 mins; Site: right antecubital; pf1 06:46 Follow up: Response: No adverse reaction as6 02:10 Drug: Zofran (Ondansetron) 4 mg Route: IVP; Site: right antecubital; pf1 06:46 Follow up: Response: No adverse reaction as6 03:05 Drug: Cipro (ciprofloxacin) 400 mg Volume: 200 ml; Route: IVPB; Infused Over: 60 mins; as6 Site: right antecubital; 06:46 Follow up: Response: No adverse reaction; IV Status: Completed infusion; IV Intake: as6 200ml Disposition Summary: 07/16/22 01:34 Hospitalization Ordered Hospitalization Status: Inpatient Admission dewey Provider: Mykel Bustillo cha Condition: Fair dewey Problem: new dewey Symptoms: have improved dewey Bed/Room Type: Standard dewey Location: Telemetry/MedSurg (Inpatient)(07/16/22 11:37) bd Room Assignment: 426(07/16/22 11:37) bd Diagnosis - Other intestinal obstruction - sbo dewey - Abdominal pain, unspecified dewey - Vomiting dewey Forms: - Medication Reconciliation Form dewey - SBAR form dewey Signatures: Dispatcher [employer] EDMS Bhakta Emely bd Brady, Vernon, MD MD dewey Milligan, Kayla, RN RN bb Anna Hernandes RN RN cg Luis Flanagan RN RN as6 Becka jarquin RN RN pf1 Corrections: (The following items were deleted from the chart) :47 01:34 Telemetry/MedSurg (Inpatient) [facility] 01:47 01:34 [facility] 11:37 01:47 [facility] ER HOLD cg bd 11:37 01:47 ERHOLD- cg bd
[2022-07-16] MEDS ORDERED: FAMOTIDINE 20 MG/2 ML VIAL IV ONE ×2 (01:58→09:05)
[2022-07-16] MEDS ORDERED: CIPROFLOXACIN 400mg IV 400 MG/200 ML BAG IV ONE ×2 (01:58→09:05)
[2022-07-16] MEDS ORDERED: METRONIDAZOLE 500mg IVPB 500 MG/100 ML BAG IV ONE ×2 (01:58→09:05)
[2022-07-16] MEDS: D5 0.45 NS 1,000 ML IV SCH ×3 (03:34→19:34)
[2022-07-16] MEDS ORDERED: ONDANSETRON 4 MG/2 ML VIAL IV PRN (03:34)
[2022-07-16] MEDS ORDERED: ACETAMINOPHEN 325 MG TABLET PO PRN (03:34)
[2022-07-16] MEDS ORDERED: MORPHINE 4 MG/ML SYR IV PRN (03:34)
[2022-07-16] MEDS ORDERED: D5 0.45 NS 1,000 ML IV ONE (04:22)
[2022-07-16] MEDS: METRONIDAZOLE 500mg IVPB 500 MG/100 ML BAG IV SCH ×2 (09:00→16:38)
[2022-07-16] MEDS: CIPROFLOXACIN 400mg IV 400 MG/200 ML BAG IV SCH ×2 (09:00→21:34)
[2022-07-16] MEDS: FAMOTIDINE 20 MG/2 ML VIAL IV SCH ×2 (09:00→21:35)
--- NOTE | 2022-07-16 15:04 | RAD REPORT ---
EXAM DESCRIPTION: Chest Single View 07/16/2022 1:19 AM LEAN MANUFACTURING COORDINATOR CLINICAL HISTORY: 81 years, Female, ABDOMINAL DISTENTION chest discomfort COMPARISON: 09/15/2021 FINDINGS: Single view of the chest was obtained portable. Prior films were compared. External EKG le ads within the [id number] limits diagnosis. The cardiomediastinal silhouette demonstrate to be unr emarkable. The heart is not enlarged. The thoracic aorta is unremarkable. The pulmonary vasculature i s normal distribution. Costophrenic angles are sharp. No areas of consolidation or masses are seen. The rest of the soft tissue and bony structures demonstrate to be unremarkable. IMPRESSION: No acute cardiopulmonary disease seen. Electronically signed by: Raudel Will MD 07/16/2022 1:19 AM LEAN MANUFACTURING COORDINATOR Due to temporary technical issues with the PACS/Fluency reporting system, reports are being signed by the in house radiologists without review as a courtesy to insure prompt reporting. The interpreting radiologist is fully responsible for the content of the report.
--- NOTE | 2022-07-16 15:05 | RAD REPORT ---
EXAM DESCRIPTION: Abdomen Pelvis W Contrast 07/16/2022 1:48 AM CHICKEN HANGER CLINICAL HISTORY: 81 years, Female, Abdominal pain, acute, nonlocalized COMPARISON: 03/02/2022 TECHNIQUE: Contrast-enhanced images of the abdomen and pelvis were performed utilizing 5 mm slice th ickness at 5 mm interval reconstruction from the lung bases to the ischial tuberosities after the adm inistration of IV contrast. In addition multiplanar reformats in the coronal and sagittal plane were obtained and reviewed. This exam was performed according to our departmental dose-optimization protocol, which includes auto mated exposure control, adjustment of the mA and/or kV according to patient size and/or use of iterat ivy reconstruction technique. FINDINGS: The lung bases demonstrate to be clear. Very minimal dependent atelectatic changes The liver demonstrated slight decreased attenuation suggesting mild fatty infiltration. Otherwise the liver, gallbladder, pancreas, spleen and adrenal glands demonstrate to be unremarkable, no focal les ions are noted. The kidneys demonstrate normal uptake of contrast media. No evidence for nephrolithiasis and/or hydro nephrosis. Grossly the unopacified stomach, small bowel and large bowel demonstrate to be within normal limits. There are dilated small bowel loops within the left lower quadrant/pelvis extending up to the level of surgical anastomosis midline pelvis on axial image [id number]. The right site colon demonstrate fecal residue extending to the transverse colon. The appendix is unremarkable. The The left site colon is d ecompressed. There is distal rectal surgery with the reanastomosis. The urinary bladder demonstrate to be unremarkable. The uterus is absent. There are no adnexal mass es. The aorta demonstrate minimal atheromatous plaque formation. There is no retroperitoneal lymp hadenopathy. There is no ascites. There is mild scoliosis of the lumbar spine. IMPRESSION: Dilated small bowel loops within the left lower quadrant/pelvis extending up to the leve l of surgical anastomosis midline pelvis, findings could correspond to ileus and/or partial small bow el obstruction. Status post hysterectomy. Mild fatty infiltration of the liver. Electronically signed by: Raudel Will MD 07/16/2022 1:51 AM CHICKEN HANGER Due to temporary technical issues with the PACS/Fluency reporting system, reports are being signed by the in house radiologists without review as a courtesy to insure prompt reporting. The interpreting radiologist is fully responsible for the content of the report.
--- NOTE | 2022-07-16 18:18 | P.HP ---
Certification for Inpatient Patient admitted to: Inpatient With expected LOS: >2 Midnights Practitioner: I am a practitioner with admitting privileges, knowledge of patient current condition, hospital course, and medical plan of care. Services: Services provided to patient in accordance with Admission requirements found in Title 42 Section 412.3 of the Code of Federal Regulations Patient History Date of Service: 07/16/22 Reason for admission: ABDOMEN PAIN ONE DAY History of Present Illness: ROSIE HAS HAD RECURRENT BOWEL OBSTRUCTIONS IN THE PAST. SHE IS TRYING BUT NOT ABLE TO FOLLOW SOFT DIET ALL THE TIME. SHE ATE RIBS, VEGETABLES ETC AND GOT SICKWITH PAIN, DISTENSION AND VOMITING . I SAW HER IN ER THIS AM. SHE DOES NOT WANT NGT AND LIS AND I TOLD HER ABOUT RISK OF ASPIRATION PNEUMONIA. SHE UNDERSTANDS. Allergies No Known Allergies Allergy (Verified 07/16/22 03:34) Home medications list reviewed: Yes Home Medications: Metoprolol Tartrate 50 mg PO DAILY 05/31/20 Cholecalciferol (Vitamin D3) [Vitamin D 5,000 IU Cap*] 5,000 unit PO DAILY 02/08/21 Atorvastatin Calcium 40 mg PO DAILY 07/16/22 Gabapentin 300 mg PO TID 07/16/22 - Past Medical/Surgical History Has patient received pneumonia vaccine in the past: Yes Diabetic: No -: colon cancer -: hypertension -: seasonal allergies -: Partial colectomy -: SBO -: colon resection with colostomy -: colostomy takedown -: colonoscopy -: breast biopsies Psychosocial/ Personal History: Patient is retired and lives with her - Family History Mother -: Cancer Notes: breast cancer Father -: Heart disease - Social History Smoking Status: Never smoker Alcohol use: Yes CD- Drugs: No Caffeine use: Yes Place of Residence: Home Review of Systems 10-point ROS is otherwise unremarkable General: Weakness Gastrointestinal: Distention, As per HPI Physical Examination - Vital Signs Temperature: 97.9 F Blood Pressure: 135/51 Pulse: 56 Respirations: 16 Pulse Ox (%): 97 - Physical Exam General: Oriented x3, Moderate distress HEENT: Atraumatic, PERRLA, Mucous membr. moist/pink, EOMI, Sclerae nonicteric Neck: Supple, 2+ carotid pulse no bruit, No LAD, Without JVD or thyroid abnormality Respiratory: Clear to auscultation bilaterally, Normal air movement Cardiovascular: Regular rate/rhythm, Normal S1 S2 Gastrointestinal: Hyperactive, Distended, Tenderness Musculoskeletal: No tenderness Integumentary: No rashes Neurological: Normal gait, Normal speech, Normal strength at 5/5 x4 extr, Normal tone, Normal affect Lymphatics: No axilla or inguinal lymphadenopathy - Studies Laboratory Data (last 24 hrs) 07/16/22 00:43: PT 12.4, INR 1.13 07/16/22 00:43: WBC 8.40, Hgb 14.2, Hct 43.3, Plt Count 210 07/16/22 00:43: Sodium 140, Potassium 3.5, BUN 20 H, Creatinine 0.86, Glucose 137 H, Magnesium 2.0, Total Bilirubin 1.1 H, AST 20, ALT 32, Alkaline Phosphatase 86, Lipase 144 Assessment and Plan - Problems (Diagnosis) (1) Recurrent intestinal obstruction Current Visit: Yes Status: Acute Plan: IV FLUID MANAGE SYMPTOMS NAUSEA ETC IDEALLY SHE SHOULD HAVE NGT WITHLIS BUT SHE REFUSES AND UNDERSTANDS RISKS. - Advance Directives Does patient have a Living Will: No Does patient have a Durable POA for Healthcare: No
--- NOTE | 2022-07-16 18:21 | RAD REPORT ---
EXAM DESCRIPTION: RAD - Abdomen W Erect - 07/16/2022 5:31 pm CLINICAL HISTORY: Abdomen pain FINDINGS: Mildly dilated jejunum and ileum have mildly decreased in size since the prior CT. Air within the colon remains diminished. Free air is not seen beneath the diaphragm
[2022-07-16] MEDS: ENOXAPARIN 40 MG/0.4 ML SQ SCH (21:34)
--- NOTE | 2022-07-16 21:56 | CON ---
Date of Consultation: 07/16/2022 Reason For Consultation: Nausea and vomiting. History Of Present Illness: Patient is a 81-year-old female, who presents to the emergency room with 1-day history of upper abdominal pain associated with nausea and vomiting started last night after e ating. She did have a good bowel movement yesterday and she did pass gas last night, but has not had a bowel movement today. She has had multiple episodes similar to this in the past. Patient did hav e a colon resection for colon cancer approximately 7 years ago. There was no sore throat, runny nose , cough, headaches, or dizziness. No chest pain. No fever or chills. Review of Systems: Otherwise unremarkable. Past Medical History: Significant for colon cancer, hypercholesterolemia, hypertension, multiple bow el obstruction admissions. Past Surgical History: Significant for colorectal surgery, right knee replacement, total abdominal h ysterectomy. Allergies: TREE POLLENS. Social History: Patient does not smoke or drink alcohol. Family History: Noncontributory. Physical Examination: Vital Signs: Stable. Afebrile. General: Awake, alert, and oriented x3. Head and Neck: Cranial nerves 2 through 12 grossly within normal limits. No neck masses. No JVD. Throat clear. Neck is supple. Chest: Clear. Heart: S1 and S2. Abdomen: Soft, slightly distended. Hypoactive bowel sounds. Nontender. No peritonitis. Extremities: Adequately perfused. Nontender. Neuro: Nonfocal. Laboratory Data: CT of the abdomen and pelvis shows a dilated small bowel in the left lower quadrant up to the point of the anastomosis; however, there are no significant obstructive symptoms or findin gs present. Differential include ileus versus early small bowel obstruction. White count is 8.4 wit h a left shift. INR is 1.13. Electrolytes are essentially within normal limits. Assessment: Likely partial small bowel obstruction. Recommendations: N.p.o. NG tube if patient vomits. IV fluids, IV antibiotics, encourage ambulation serial abdominal exam. We will repeat the abdominal x-ray in the morning. Make further recommendat ions as the case develops. No need for any surgical intervention at this time. /MODL Voice ID: [id number] Report ID: [id number]
[2022-07-17] MEDS: METRONIDAZOLE 500mg IVPB 500 MG/100 ML BAG IV SCH ×3 (01:35→16:19)
[2022-07-17 04:01] LABS: Absolute Lymphocytes (CBC) 0.4 K/uL (0.7-4.9); Hematocrit 34.3 % (36.0-45.0); Lymphocytes % 11.2 % (15.3-44.8); MCV 93.6 fL (80-100); RBC Red Blood Cell Count 3.67 M/uL (3.86-4.86)
[2022-07-17 04:05] VITALS: BMI 26.9
[2022-07-17 04:11] LABS: Bilirubin Direct 0.2 mg/dL (0-0.2); Bilirubin Total 1.1 mg/dL (0.2-1.0); Potassium 3.7 mmol/L (3.5-5.1); Protein, Total 5.5 g/dL (6.4-8.2)
[2022-07-17] MEDS: D5 0.45 NS 1,000 ML IV SCH ×3 (06:29→20:04)
[2022-07-17] MEDS: ENOXAPARIN 40 MG/0.4 ML SQ SCH (08:29)
[2022-07-17] MEDS: FAMOTIDINE 20 MG/2 ML VIAL IV SCH ×2 (08:29→20:04)
[2022-07-17 09:18] VITALS: O2SAT 94
[2022-07-17] MEDS: CIPROFLOXACIN 400mg IV 400 MG/200 ML BAG IV SCH ×2 (09:31→20:04)
--- NOTE | 2022-07-17 10:43 | RAD REPORT ---
EXAM DESCRIPTION: RAD - Abdomen 1 View (KUB) - 07/17/2022 10:23 am CLINICAL HISTORY: upper right abdomen COMPARISON: Abdomen 1 View (KUB) dated 03/03/2022 FINDINGS: Bowel gas pattern is non-specific. Stomach is decompressed. No abnormal stool volume seen. No obstruction, free air or pneumatosis. No suspicious calcifications. Prominent degenerative change seen in the lower 2 lumbar levels with a left convex degenerative scoli osis present as well. IMPRESSION: Negative KUB examination for acute or suspicious finding.
--- NOTE | 2022-07-17 13:45 | PN ---
Date of Progress Note: 07/17/2022 Subjective: The patient is awake, alert, passing gas, and tolerating sips of clear liquids. Objective: Vital Signs: Stable, afebrile. Abdomen: Benign. Laboratory Data: X-ray reviewed with the radiologist, is negative. Assessment: Small bowel obstruction, improving. Recommendations: Slowly advance diet to full liquids later today. Discharge in 24 to 48 hours. [facility] n of care discussed with the patient as well as Dr. Bustillo. /MODL Voice ID: [id number] Report ID: [id number]
--- NOTE | 2022-07-17 17:38 | PN ---
Subjective: Candice is doing a lot better. She has had passage of gas. No BM. Objective: Chest: Clear. Heart: Regular. Abdomen: No guarding, no rebound, no rigidity. Abdomen is soft. Bowel sounds are present. Laboratory Data: Reviewed. Assessment And Plan: Recurrent bowel obstruction. She looks like she has opened up intestine. She will be going to clear liquid diet and removal of NG tube by tomorrow hopefully. Prognosis is fair. RVD/MODL Voice ID: [id number] Report ID: [id number]
[2022-07-18] MEDS: METRONIDAZOLE 500mg IVPB 500 MG/100 ML BAG IV SCH ×2 (00:38→08:47)
[2022-07-18] MEDS: FAMOTIDINE 20 MG/2 ML VIAL IV SCH (08:47)
[2022-07-18] MEDS: ENOXAPARIN 40 MG/0.4 ML SQ SCH (08:48)
[2022-07-18 08:49] VITALS: BP 162/78
[2022-07-18] MEDS ORDERED: METOPROLOL TAR 50 MG TAB PO SCH (09:00)
[2022-07-18] MEDS: CIPROFLOXACIN 400mg IV 400 MG/200 ML BAG IV SCH (09:00)
[2022-07-18 10:07] VITALS: TEMP 97.6
--- NOTE | 2022-07-18 11:10 | PN ---
Date of Progress Note: 07/18/2022 Subjective: The patient is awake, alert. Tolerating diet. Had a bowel movement and is passing gas. No nausea or vomiting. Objective: Vital Signs: Stable, afebrile. Abdomen: Benign. Assessment: Partial bowel obstruction, improved. Recommendations: Advance to GI soft. Cleared from Surgery for discharge. Advised to eat small freq uent meals, soft. /MODL Voice ID: [id number] Report ID: [id number]
--- NOTE | 2022-07-19 08:10 | EKG ---
Test Date: 2022-07-16 Test Time: 00:38:37 Senior Product Consultant: NICHOLE MEASUREMENT RESULTS: Intervals: Rate: 72 TX: 148 QRSD: 78 QT: 408 QTc: 446 [place]: P: 77 TX: 148 QRS: 53 T: 52 INTERPRETIVE STATEMENTS: Sinus rhythm with occasional premature ventricular complexes Anterior infarct, age undetermined Abnormal ECG Compared to ECG 11/20/2013 07:19:27 Ventricular premature complex(es) now present Myocardial infarct finding still present Electronically Signed On 07-19-22 08:00:36 DRAIN TILE MACHINE OPERATOR by Carlito Oglesby
--- NOTE | 2022-07-21 08:52 | P.DS ---
Admission Date: 07/16/22 Discharge Date: 07/21/22 Disposition: ROUTINE DISCHARGE Discharge Condition: GOOD Reason for Admission: ABDOMEN PAIN ONE DAY - Problems (1) Recurrent intestinal obstruction Status: Acute Brief History of Present Illness: ROSIE HAS HAD RECURRENT BOWEL OBSTRUCTIONS IN THE PAST. SHE IS TRYING BUT NOT ABLE TO FOLLOW SOFT DIET ALL THE TIME. SHE ATE RIBS, VEGETABLES ETC AND GOT SICKWITH PAIN, DISTENSION AND VOMITING . I SAW HER IN ER THIS AM. SHE DOES NOT WANT NGT AND LIS AND I TOLD HER ABOUT RISK OF ASPIRATION PNEUMONIA. SHE UNDERSTANDS. Hospital Course: ROSIE DID WELL AFTER A FEW DAYS OF BEING NPO. SHE DID NOT WANT NGT. SHE STARTED TO PASS GAS AND HAD BM AFTER CLEAR LIQUID DIET. SHE WILL CONTINUE TO CHEW WELL AND PUREE IF POSSIBLE. STABLE FOR DC. Vital Signs/Physical Exam: Temp Pulse Resp BP Pulse Ox 97.6 F 61 17 162/78 H 94 07/18/22 08:00 07/18/22 08:47 07/18/22 08:00 07/18/22 08:47 07/18/22 08:00 Laboratory Data at Discharge: WBC 3.50 K/uL (4.3-10.9) L 07/17/22 02:52 Hgb 11.6 g/dL (12.0-15.0) L D 07/17/22 02:52 Hct 34.3 % (36.0-45.0) L 07/17/22 02:52 Plt Count 143 K/uL (152-406) L D 07/17/22 02:52 PT 12.4 SECONDS (9.5-12.5) 07/16/22 00:43 INR 1.13 07/16/22 00:43 Sodium 145 mmol/L (136-145) D 07/17/22 02:52 Potassium 3.7 mmol/L (3.5-5.1) 07/17/22 02:52 BUN 8 mg/dL (7-18) 07/17/22 02:52 Creatinine 0.69 mg/dL (0.55-1.02) 07/17/22 02:52 Glucose 126 mg/dL (74-106) H 07/17/22 02:52 Magnesium 2.0 mg/dL (1.6-2.4) 07/16/22 00:43 Total Bilirubin 1.1 mg/dL (0.2-1.0) H 07/17/22 02:52 AST 14 U/L (15-37) L 07/17/22 02:52 ALT 24 U/L (13-56) 07/17/22 02:52 Alkaline Phosphatase 46 U/L (45-117) D 07/17/22 02:52 Lipase 65 U/L (73-393) L 07/17/22 02:52 Home Medications: Metoprolol Tartrate 50 mg PO DAILY 05/31/20 Cholecalciferol (Vitamin D3) [Vitamin D 5,000 IU Cap*] 5,000 unit PO DAILY 02/08/21 Atorvastatin Calcium 40 mg PO DAILY 07/16/22 Gabapentin 300 mg PO TID 07/16/22 Physician Discharge Instructions: PROBLEM: Small bowel obstruction GOAL: Clear understanding of disease process INSTRUCTIONS: Ok to discharge home Follow up with Dr. Bustillo and Dr. Benson in 1 week Continue home medications Contact physician or return to ER for any complications or concerns Call [phone] for any questions regarding hospital stay Diet: GI soft diet Activity: As tolerated IMMUNIZATION Influenza Vaccine Indicated: No Influenza Vaccine Given: Date Given: Pneumonia Vaccine Indicated: No Pneumonia Vaccine Given: Date Given: Followup: Mykel Bustillo MD [ACTIVE - CAN ADMIT] - Reilly Benson MD [ACTIVE - CAN ADMIT] -
== END 2022-07-18 13:30 | disposition home or self-care (01) | DRG 390 ==
LOC: ER → ERHOLD 01:36 → 4TH 12:02
PROVIDERS: ADMIT Internal Medicine; ATTEND Internal Medicine
DX: K56.600 Partial intestinal obstruction, unspecified as to cause (principal); I10 Essential (primary) hypertension; Z91.09 Other allergy status, other than to drugs and biological substances; Z79.890 Hormone replacement therapy; Z79.899 Other long term (current) drug therapy; Z85.038 Personal history of other malignant neoplasm of large intestine; Z96.651 Presence of right artificial knee joint; Z90.710 Acquired absence of both cervix and uterus; Z20.822 Contact with and (suspected) exposure to COVID-19
CPT/HCPCS: 36415; 71045; 74018; 74019; 74177; 80048; 80076; 82565; 83690; 83735; 83880; 84484; 85025; 85610; 87811; 93005; 96361; 96365; 96366; 96375; 99285; J0744; J1650; J2405; J7030; J7799; Q9967

== ENCOUNTER 2022-08-26 22:38 | Inpatient (IN) | payer OTHER ==
--- OUTSIDE RECORDS SUMMARY | 2022-08-26 22:41 | XMS REPORT | Continuity of Care Document ---
:1940 Author Organization [facility] t Address [address] [place] [address] [place] [id number] Care Team Providers Name Role Phone Cathie [...] [facility] Common 09:29:02 Cathie 0720 [facility] 2021-10-02 Outpatient Howard, [facility] Common 10:31:01 Cathie 0425 [facility] 2021-09-27 Outpatient Howard, [facility] Common 09:47:01 Cathie 0420 [facility] 2021-08-28 Outpatient Howard, [facility] Common 09:31:01 Cathie 0321 [facility] 2021-08-02 Outpatient Howard, [facility] [id number] Common 15:35:01 Cathie 0223 [facility] 2021-07-05 Outpatient Howard, [facility] [id number] Common 14:39:06 Cathie 0124 [facility] 2021-07-05 Outpatient Sierra Pastor [facility] [id number] 1 Common 14:26:43 1220 [facility] 2021-07-05 Outpatient Pastor, Na [facility] [id number] 1 Common 14:07:35 1102 [facility] 2021-07-05 Outpatient Pastor, Na [facility] [id number] 1 Common 14:05:50 1027 [facility] 2021-07-05 Outpatient Pastor, Na [facility] [id number] 1 Common 13:47:54 0910 [facility] 2021-07-05 Outpatient Pastor, Na [facility] [id number] 1 Common 12:56:52 0427 [facility] 2021-07-05 Outpatient Pastor, Na [facility] [id number] 1 Common 12:55:06 0422 [facility] 2021-07-05 Outpatient Pastor, Na [facility] [id number] 1 Common 12:53:17 0419 [facility] 2021-07-05 Outpatient Pastor, Na [facility] [id number] 1 Common 12:26:59 0129 [facility] 2021-07-05 Outpatient Pastor, Na [facility] [id number] 1 Common 12:25:37 0126 [facility] 2021-07-05 Outpatient [facility] [id number] Common 12:15:16 1221 [facility] 2021-07-05 Outpatient Millender, [facility] [id number] Common 11:57:25 [place] 1021 [facility] 2021-07-05 Outpatient Millender, [facility] [id number] Common 11:49:44 [place] 0928 [facility] 2021-07-05 Outpatient Millender, [facility] [id number] Common 11:47:29 [place] 0920 [facility] 2021-07-05 Outpatient Millender, [facility] [id number] Common 11:30:17 [place] 0707 [facility] Results This patient has no known results.
[2022-08-26 23:48] LABS: Absolute Lymphocytes (CBC) 0.4 K/uL (0.7-4.9); Hematocrit 42.4 % (36.0-45.0); Lymphocytes % 6.7 % (15.3-44.8); MCV 93.2 fL (80-100); MPV 8.8 fL (7.6-11.3); RBC Red Blood Cell Count 4.56 M/uL (3.86-4.86)
[2022-08-27 00:08] LABS: Albumin 4.5 g/dL (3.4-5.0); Bilirubin Total 1.3 mg/dL (0.2-1.0); Potassium 3.5 mEq/L (3.5-5.1); Protein, Total 7.8 g/dL (6.4-8.2)
--- NOTE | 2022-08-27 01:02 | EDPHYS ---
Physician Documentation [facility] Name: Candice Silva Age: 81 yrs Sex: Female : 1940 Arrival Date: 08/26/2022 Time: 22:41 Bed 16 Private MD: ED Physician Ivan Lafleur HPI: 08/27 00:01 This 81 yrs old Female presents to ER via Ambulatory with complaints of Abdominal Pain, ms3 Abdominal Swelling. 00:01 81-year-old female with past medical history of arthritis, bowel obstruction, colon ms3 cancer, hypercholesterolemia presents for abdominal pain that she rates a 9/10 and described as aching. Patient denies alleviating or inciting factors. Patient endorses nausea. Patient denies vomiting.. Historical: - Allergies: 08/26 22:56 tree pollen; as6 - PMHx: 22:56 Arthritis; bowel obstruction; colon cancer; Hypercholesterolemia; Hypertension; as6 - PSHx: 22:56 Colorectal SX; Right knee replacement; Total abdominal hysterectomy; as6 - Immunization history:: Client reports receiving the 2nd dose of the Covid vaccine, moderna. - Social history:: Smoking status: Patient denies any tobacco usage or history of. ROS: 08/27 00:01 Constitutional: Negative for fever, and chills. Neck: Negative for injury, pain, and ms3 swelling, Cardiovascular: Negative for chest pain, and palpitations. Respiratory: Negative for shortness of breath, cough, wheezing, and pleuritic chest pain. Skin: Negative for injury, rash, and discoloration, Neuro: Negative for headache, weakness, numbness, tingling. Abdomen/GI: Positive for abdominal pain, nausea, Negative for vomiting, diarrhea. All other systems are negative. Exam: 00:01 Constitutional: This is a well developed, well nourished patient who is awake, alert, ms3 and in no acute distress. Head/Face: Normocephalic, atraumatic. Chest/axilla: Normal chest wall appearance and motion. Nontender with no deformity. Cardiovascular: Regular rate and rhythm with a normal S1 and S2. No gallops, murmurs, or rubs. Normal PMI, no JVD. No pulse deficits. Respiratory: Lungs have equal breath sounds bilaterally, clear to auscultation and percussion. No rales, rhonchi or wheezes noted. No increased work of breathing, no retractions or nasal flaring. Abdomen/GI: Soft, non-tender, with normal bowel sounds. No distension or tympany. No guarding or rebound. No evidence of tenderness throughout. Skin: Warm, dry with normal turgor. Normal color with no rashes, no lesions, and no evidence of cellulitis. MS/ Extremity: Pulses equal, no cyanosis. Neurovascular intact. Full, normal range of motion. Psych: Awake, alert, with orientation to person, place and time. Behavior, mood, and affect are within normal limits. Vital Signs: 08/26 22:52 BP 175 / 70; Pulse 63; Resp 18 S; Temp 98.6(TE); Pulse Ox 96% on R/A; Weight 76.2 kg as6 (R); Height 5 ft. 6 in. (R); Pain 9/10; 08/27 01:26 BP 148 / 70; Pulse 57; Resp 16 S; Pulse Ox 95% on R/A; as6 19:37 BP 155 / 63; Pulse 58; Resp 18; Temp 98; Pulse Ox 99% on R/A; Pain 0/10; pf1 08/26 22:52 Body Mass Index 27.12 (76.20 kg, 167.64 cm) as6 08/26 22:52 Pain Scale: Adult as6 19:37 Pain Scale: Adult pf1 MDM: 08/26 22:58 Patient medically screened. ms3 08/27 00:01 Differential diagnosis: bowel obstruction, diverticulitis, non-specific abd pain. ms3 01:08 Data reviewed: vital signs, nurses notes, and as a result, I will admit patient. ms3 Consideration of Admission/Observation Patient was admitted/placed on observation. Management of patient was discussed with the following: Hospitalist: Dr Bustillo. I considered the following discharge prescriptions or medication management in the emergency department Medications were administered in the Emergency Department. See MAR. Care significantly affected by the following chronic conditions:. Counseling: I had a detailed discussion with the patient and/or guardian regarding: the historical points, exam findings, and any diagnostic results supporting the discharge/admit diagnosis, lab results, radiology results, the need for further work-up and treatment in the hospital. ED course: Discussed necessity for admission with patient. Patient understands and agrees with plan. All questions were answered. Patient declines nasogastric tube at this time.. 08/26 23:45 Order name: Comprehensive Metabolic Panel; Complete Time: 00:57 EDMS 08/26 23:45 Order name: CBC with Automated Diff; Complete Time: 23:57 EDMS 08/27 01:03 Order name: SARS RAPID as6 08/27 01:10 Order name: Basic Metabolic Panel EDMS 08/27 01:10 Order name: Basic Metabolic Panel EDMS 08/27 01:10 Order name: CBC with Automated Diff EDMS 08/27 01:10 Order name: CBC with Automated Diff EDMS 08/26 23:06 Order name: CT Abd/Pelvis - Without Contrast ms3 08/27 00:00 Order name: Abdomen EDMS 08/27 01:10 Order name: CONS Physician Consult EDMS 08/27 01:10 Order name: NPO EDMS 08/26 23:06 Order name: IV Saline Lock; Complete Time: 23:46 ms3 08/26 23:06 Order name: Labs collected and sent; Complete Time: 23:46 ms3 Administered Medications: 01:15 Drug: Ondansetron IVP 4 mg Route: IVP; Site: left antecubital; as6 06:08 Follow up: Response: No adverse reaction as6 01:15 Drug: morphine IVP or IV 4 mg Route: IVP; Infused Over: 4 mins; Site: left antecubital; as6 06:08 Follow up: Response: No adverse reaction as6 Disposition Summary: 08/27/22 01:01 Hospitalization Ordered Hospitalization Status: Inpatient Admission ms3 Provider: Mykel Bustillo ms3 Condition: Stable ms3 Problem: new ms3 Symptoms: are unchanged ms3 Bed/Room Type: Standard ms3 Location: Telemetry/MedSurg (Inpatient)(08/27/22 18:30) eb Room Assignment: 403(08/27/22 18:30) eb Diagnosis - Other and unspecified intestinal obstruction ms3 - Abdominal pain, Generalized ms3 - Essential (primary) hypertension ms3 Forms: - Medication Reconciliation Form ms3 - SBAR form ms3 Signatures: Dispatcher [employer] EDAnna Clement RN RN cg Botello, Elizabeth eb Sims, Marcus, DO DO ms3 Slawson, Luis, RN RN as6 Corrections: (The following items were deleted from the chart) 00:59 00:39 CBC+H.LAB.BRZ ordered. EDMS EDMS 00:59 00:39 COMPREHENSIVE METABOLIC PANEL+C.LAB.BRZ ordered. EDMS EDMS 01:51 01:01 Telemetry/MedSurg (Inpatient) ms3 cg 01:51 01:01 ms3 cg 18:30 01:51 BR ER HOLD cg eb 18:30 01:51 ERHOLD- cg eb
--- NOTE | 2022-08-27 01:02 | ER ---
Nurse's Notes [facility] Name: Candice Silva Age: 81 yrs Sex: Female : 1940 Arrival Date: 08/26/2022 Time: 22:41 Bed 16 Private MD: Diagnosis: Other and unspecified intestinal obstruction;Abdominal pain, Generalized;Essential (primary) hypertension Presentation: 08/26 22:52 Chief complaint: Patient states: "I have a blockage, I've had them before". Coronavirus as6 screen: At this time, the client does not indicate any symptoms associated with coronavirus-19. Ebola Screen: No symptoms or risks identified at this time. Initial Sepsis Screen: Does the patient meet any 2 criteria? No. Patient's initial sepsis screen is negative. Does the patient have a suspected source of infection? No. Patient's initial sepsis screen is negative. Risk Assessment: Do you want to hurt yourself or someone else? Patient reports no desire to harm self or others. Onset of symptoms was August 26, 2022. 22:52 Method Of Arrival: Ambulatory as6 22:52 Acuity: HAILEY 3 as6 Historical: - Allergies: 22:56 tree pollen; as6 - PMHx: 22:56 Arthritis; bowel obstruction; colon cancer; Hypercholesterolemia; Hypertension; as6 - PSHx: 22:56 Colorectal SX; Right knee replacement; Total abdominal hysterectomy; as6 - Immunization history:: Client reports receiving the 2nd dose of the Covid vaccine, moderna. - Social history:: Smoking status: Patient denies any tobacco usage or history of. Screenin/20 00:03 [facility] ED Fall Risk Assessment (Adult) Score/Fall Risk Level 0 - 2 = Low Risk. Abuse as6 screen: Denies threats or abuse. Denies injuries from another. Nutritional screening: No deficits noted. Tuberculosis screening: No symptoms or risk factors identified. Assessment: 00:00 General: Appears uncomfortable, Behavior is calm, cooperative. Pain: Complains of pain as6 in abdomen. GI: Reports upper abdominal pain, nausea. :. 19:00 General: Appears in no apparent distress. comfortable, well groomed, well developed, pf1 Behavior is calm, cooperative, appropriate for age, quiet. 19:00 Pain: Denies pain. Neuro: No deficits noted. Level of Consciousness is awake, alert, pf1 obeys commands, Oriented to person, place, time, situation. Cardiovascular: No deficits noted. Capillary refill < 3 seconds Patient's skin is warm and dry. Respiratory: No deficits noted. Airway is patent Trachea midline Respiratory effort is even, unlabored, Respiratory pattern is regular, symmetrical. GI: No deficits noted. Abdomen is round non-distended, Bowel sounds present X 4 quads. Abd is soft and non tender X 4 quads. Reports nausea. : No deficits noted. No signs and/or symptoms were reported regarding the genitourinary system. EENT: No deficits noted. No signs and/or symptoms were reported regarding the EENT system. Derm: No deficits noted. No signs and/or symptoms reported regarding the dermatologic system. Vital Signs: 08/26 22:52 BP 175 / 70; Pulse 63; Resp 18 S; Temp 98.6(TE); Pulse Ox 96% on R/A; Weight 76.2 kg as6 (R); Height 5 ft. 6 in. (R); Pain 9/10; 08/27 01:26 BP 148 / 70; Pulse 57; Resp 16 S; Pulse Ox 95% on R/A; as6 19:37 BP 155 / 63; Pulse 58; Resp 18; Temp 98; Pulse Ox 99% on R/A; Pain 0/10; pf1 08/26 22:52 Body Mass Index 27.12 (76.20 kg, 167.64 cm) as6 08/26 22:52 Pain Scale: Adult as6 19:37 Pain Scale: Adult pf1 ED Course: 08/26 22:41 Patient arrived in ED. jj6 22:56 Triage completed. as6 22:57 Arm band placed on. as6 22:58 Ivan Lafleur DO is Attending Physician. ms3 23:46 Comprehensive Metabolic Panel Sent. ah1 23:46 CBC with Automated Diff Sent. 1 08/27 00:03 Luis Flanagan, KELSEY is Primary Nurse. as6 00:03 Bed in low position. Call light in reach. as6 00:26 Abdomen In Process Unspecified. EDMS 00:59 Mykel Bustillo MD is Hospitalizing Provider. ms3 06:11 No provider procedures requiring assistance completed. Patient admitted, IV remains in as6 place. 19:39 IV discontinued, intact, bleeding controlled, No redness/swelling at site. Pressure pf1 dressing applied, LAC 20g infiltrated, IV removed. Inserted saline lock: 22 gauge in right antecubital area, using aseptic technique. Administered Medications: 01:15 Drug: Ondansetron IVP 4 mg Route: IVP; Site: left antecubital; as6 06:08 Follow up: Response: No adverse reaction as6 01:15 Drug: morphine IVP or IV 4 mg Route: IVP; Infused Over: 4 mins; Site: left antecubital; as6 06:08 Follow up: Response: No adverse reaction as6 Medication: 00:46 VIS not applicable for this client. as6 Outcome: 01:01 Decision to Hospitalize by Provider. ms3 06:11 Admitted to ER Hold. [facility]. as6 06:11 Condition: stable 06:11 Instructed on the need for admit. 19:37 Admitted to Tele accompanied by tech, via wheelchair, room 403, with chart, Report pf1 called to [facility] 19:37 Condition: stable 19:37 Instructed on the need for admit, Demonstrated understanding of instructions. 19:54 Patient left the ED. pf1 Signatures: Dispatcher [employer] EDMS Ivan Lafleur DO DO ms3 MaritzaTrinidad jj6 Luis Flanagan, KELSEY RN as6 Becka jarquin RN RN pf1 Magaly Carter [facility] Corrections: (The following items were deleted from the chart) 00:59 00:41 CBC+H.LAB.BRZ drawn and sent. [facility] EDMS 00:59 00:41 COMPREHENSIVE METABOLIC PANEL+C.LAB.BRZ drawn and sent. [facility] EDSC
[2022-08-27] MEDS ORDERED: MORPHINE 4 MG/ML SYR ONE (01:11)
[2022-08-27] MEDS ORDERED: ONDANSETRON 4 MG/2 ML VIAL ONE ×4 (01:12→16:40)
[2022-08-27 01:33] LABS: SARS-CoV-2 Antigen Rapid Res Negative (Negative)
[2022-08-27] MEDS: D5 0.45 NS 1,000 ML IV SCH ×3 (02:00→22:00)
[2022-08-27 03:25] VITALS: BMI 27.1
[2022-08-27] MEDS ORDERED: D5 0.45 NS 1,000 ML IV ONE ×2 (04:02→16:40)
[2022-08-27] MEDS: MORPHINE 2 MG/ML SYR IV PRN ×3 (05:30→21:10)
[2022-08-27] MEDS: ONDANSETRON 4 MG/2 ML VIAL IV PRN ×3 (05:30→16:45)
[2022-08-27] MEDS ORDERED: MORPHINE 2 MG/ML SYR ONE ×2 (05:36→10:48)
--- NOTE | 2022-08-27 12:13 | RAD REPORT ---
EXAM DESCRIPTION: Abdomen Pelvis Wo Contrast 08/27/2022 12:33 AM CDT CLINICAL HISTORY: 81 years, Female, ABD PAIN COMPARISON: 07/16/2022. TECHNIQUE: Multiple transaxial tomograms of the abdomen and pelvis were performed from the lung base s to the symphysis pubis utilizing 5 m slice thickness at 5 mm interval reconstruction, without admin istration of IV and oral contrast. Multiplanar reformats in the sagittal and coronal plane were generated and reviewed. This exam was performed according to our departmental dose-optimization protocol, which includes auto mated exposure control, adjustment of the mA and/or kV according to patient size and/or use of iterat ivy reconstruction technique. FINDINGS: The lack of IV and oral contrast limits evaluation of solid organs, subtle lesions cannot be excluded. The lung bases demonstrate to be clear. There is small hiatal hernia. Mitral annular calcification. Grossly the unopacified liver, gallbladder, pancreas, spleen and adrenal glands demonstrate to be wit hin normal limits, no significant focal lesions were identified. The right kidney demonstrate mild calyectasis extending up to the crossing of the iliac vessels. No d iscernible calculus could be demonstrated. The left kidney demonstrate the presence of a 10.4 mm on image 31 and 2.4 mm on image 27. There is no evidence for left hydronephrosis/or left hydroureter. Grossly the unopacified stomach and large bowel demonstrate to be within normal limits. Again there i s post surgical changes within the distal rectum. Again there is dilated distal small bowel loops within the deep pelvis with a questionable minimal mu cosal thickening extending up to the level of the surgical anastomosis similar to prior study finding s a could suggest adhesions and/or mild ileus. The urinary bladder was partially distended with no gross amount is. The uterus is absent. There are no adnexal masses The aorta demonstrate minimal atherosclerotic disease. There is no retroperitonea l lymphadenopathy. There is no evidence for ascites. The bone windows demonstrate levoscoliosis wit h minimal degenerative changes. IMPRESSION: Again there is dilated distal small bowel loops within the deep pelvis with a questionab le minimal mucosal thickening extending up to the level of the surgical anastomosis similar to prior study findings a could suggest partial obstruction by adhesions and/or mild ileus. Mild right calyectasis extending up to the crossing of the iliac vessels. No discernible calculus cou ld be demonstrated. Left nephrolithiasis. Small hiatal hernia. Scoliosis with minimal degenerative changes. Electronically signed by: Raudel Will MD 08/27/2022 12:40 AM CDT Due to temporary technical issues with the PACS/Fluency reporting system, reports are being signed by the in house radiologists without review as a courtesy to insure prompt reporting. The interpreting radiologist is fully responsible for the content of the report.
--- NOTE | 2022-08-27 21:04 | P.HP ---
Certification for Inpatient Patient admitted to: Inpatient With expected LOS: >2 Midnights Practitioner: I am a practitioner with admitting privileges, knowledge of patient current condition, hospital course, and medical plan of care. Services: Services provided to patient in accordance with Admission requirements found in Title 42 Section 412.3 of the Code of Federal Regulations Patient History Date of Service: 08/27/22 Reason for admission: BOWEL OBSTRUCTION History of Present Illness: ROSIE HAS HAD MANY RECURRENCES OF BOWEL OBSTRUCTIONS. THIS TIME SHE COMES WITH ABDOMEN PAIN THAT IS DIFFUSE AND NO VOMITING. ON CT SCAN BOWEL OBSTRUCTION IS CONFIRMED. SHE IS COMFORTABLE AND DOES NOT WANT NG TUBE LIKE BEFORE.. SHE KNOWS THAT WITHOUT NGT SHE MAY NOT RECOVER AND HAS RISK OF ASPIRATION PNEUMONIA. Allergies No Known Allergies Allergy (Verified 07/16/22 03:34) Home medications list reviewed: Yes Home Medications: Metoprolol Tartrate 50 mg PO DAILY 05/31/20 Cholecalciferol (Vitamin D3) [Vitamin D 5,000 IU Cap*] 5,000 unit PO DAILY 02/08/21 Atorvastatin Calcium 40 mg PO DAILY 07/16/22 Gabapentin 300 mg PO TID 07/16/22 Fluticasone [Flonase 50mcg Nasal Kiron] 2 sprays NS DAILY 08/27/22 Lidocaine/Prilocaine [Lidocaine-Prilocaine Cream] 1 each TP BID* 08/27/22 - Past Medical/Surgical History Has patient received pneumonia vaccine in the past: Yes Diabetic: No -: colon cancer -: hypertension -: seasonal allergies -: Partial colectomy -: SBO -: colon resection with colostomy -: colostomy takedown -: colonoscopy -: breast biopsies Psychosocial/ Personal History: Patient is retired and lives with her - Family History Mother -: Cancer Notes: breast cancer Father -: Heart disease - Social History Smoking Status: Never smoker Alcohol use: Yes CD- Drugs: No Caffeine use: Yes Review of Systems 10-point ROS is otherwise unremarkable Physical Examination - Vital Signs Temperature: 97.1 F Blood Pressure: 160/78 Pulse: 66 Respirations: 16 Pulse Ox (%): 96 - Physical Exam General: Oriented x3, Mild distress HEENT: Atraumatic, PERRLA, Mucous membr. moist/pink, EOMI, Sclerae nonicteric Neck: Supple, 2+ carotid pulse no bruit, No LAD, Without JVD or thyroid abnormality Respiratory: Clear to auscultation bilaterally, Normal air movement Cardiovascular: Regular rate/rhythm, Normal S1 S2 Gastrointestinal: Absent bowel sounds, Distended, Tenderness Musculoskeletal: No tenderness Integumentary: No rashes Neurological: Normal gait, Normal speech, Normal strength at 5/5 x4 extr, Normal tone, Normal affect Lymphatics: No axilla or inguinal lymphadenopathy - Studies Laboratory Data (last 24 hrs) 08/26/22 23:37: Sodium 137, Potassium 3.5, BUN 15, Creatinine 0.75, Glucose 125 H, Total Bilirubin 1.3 H, AST 17, ALT 30, Alkaline Phosphatase 78 08/26/22 23:37: WBC 6.70, Hgb 13.9, Hct 42.4, Plt Count 203 08/26/22 23:06: Sodium Cancelled, Potassium Cancelled, BUN Cancelled, Creatinine Cancelled, Glucose Cancelled, Total Bilirubin Cancelled, AST Cancelled, ALT Cancelled, Alkaline Phosphatase Cancelled 08/26/22 23:06: WBC Cancelled, Hgb Cancelled, Hct Cancelled, Plt Count Cancelled Assessment and Plan - Problems (Diagnosis) (1) SBO (small bowel obstruction) Current Visit: No Status: Acute Plan: THIS IS RECURRENT SHE REFUSES NGT KEEP NPO IV FLUIDS. SURGICAL CONSULT. (2) HTN (hypertension) Current Visit: No Status: Chronic Plan: CHANGE LORPESSOR TO IV UNTIL SHE IS ABLE TO TOLERATE FOOD AGAIN. Qualifiers: Hypertension type: primary hypertension (3) History of partial colectomy Current Visit: No Status: Chronic - Advance Directives Does patient have a Living Will: No Does patient have a Durable POA for Healthcare: No
[2022-08-27] MEDS: METOPROLOL TARTRATE 5 MG/5 ML INJ IV SCH (21:20)
[2022-08-28 02:12] VITALS: O2SAT 99
[2022-08-28] MEDS: METOPROLOL TARTRATE 5 MG/5 ML INJ IV SCH ×4 (04:00→21:57)
[2022-08-28] MEDS: ONDANSETRON 4 MG/2 ML VIAL IV PRN ×2 (06:16→13:21)
[2022-08-28] MEDS: MORPHINE 2 MG/ML SYR IV PRN (06:21)
[2022-08-28] MEDS: D5 0.45 NS 1,000 ML IV SCH ×2 (07:40→17:44)
[2022-08-28] MEDS: FAMOTIDINE 20 MG/2 ML VIAL IV SCH (07:41)
[2022-08-28] MEDS: LIDOCAINE PRILOCAINE TOP SCH ×2 (07:42→13:25)
--- NOTE | 2022-08-28 12:03 | RAD REPORT ---
EXAM DESCRIPTION: RAD - Abdomen W Erect - 08/28/2022 9:44 am CLINICAL HISTORY: sbo COMPARISON: Abdomen W Erect dated 07/16/2022 TECHNIQUE: AP views of the abdomen. FINDINGS: Nonobstructive bowel gas pattern. No air-fluid levels, free air, or pneumatosis. No suspic ious calcifications. No significant bony abnormality. Levoconvex lumbar scoliosis. IMPRESSION: Nonobstructive bowel gas pattern.
--- NOTE | 2022-08-28 13:13 | P.PN ---
Subjective Date of Service: 08/28/22 Chief Complaint: BOWEL OBSTRUCTION Subjective: Improving SHE HAS NOT HAD BM YET BUT SOME PASSAGE OF GAS. SHE HAS NO FEVER. SHE IS NOT HAPPY ABOUT IV BUT SHE HAS RECURRENT VISITS HERE. SHE REFUSES TO DO NGT OR ENEMA. Review of Systems 10-point ROS is otherwise unremarkable Physical Examination - Vital Signs Temperature: 97.5 F Blood Pressure: 162/74 Pulse: 53 Respirations: 16 Pulse Ox (%): 96 - Physical Exam General: Oriented x3, Mild distress HEENT: Atraumatic, PERRLA, EOMI Neck: Supple, JVD not distended Respiratory: Clear to auscultation bilaterally, Normal air movement Cardiovascular: Regular rate/rhythm, Normal S1 S2 Gastrointestinal: Normal bowel sounds, No tenderness Musculoskeletal: No tenderness Integumentary: No rashes Neurological: Normal speech, Normal tone, Normal affect Lymphatics: No axilla or inguinal lymphadenopathy - Studies Medications List Reviewed: Yes Assessment And Plan - Current Problems (Diagnosis) (1) SBO (small bowel obstruction) Current Visit: No Status: Acute Plan: THIS IS RECURRENT SHE REFUSES NGT KEEP NPO IV FLUIDS. SURGICAL CONSULT. X RAY SHOWS NO BOWEL OBSTTODAY WILL DISCUSS WITH DR. BANEGAS. HE SAW HER TODAY. DR. LEWIS IS IN [place]. (2) HTN (hypertension) Current Visit: No Status: Chronic Plan: CHANGE LORPESSOR TO IV UNTIL SHE IS ABLE TO TOLERATE FOOD AGAIN. Qualifiers: Hypertension type: primary hypertension (3) History of partial colectomy Current Visit: No Status: Chronic
[2022-08-28] MEDS ORDERED: PROMETHAZINE INJ 25 MG/ML AMP IV PRN (15:17)
[2022-08-28] MEDS ORDERED: ENOXAPARIN 40 MG/0.4 ML SQ SCH (17:00)
[2022-08-28 21:51] LABS: Absolute Lymphocytes (CBC) 0.6 K/uL (0.7-4.9); Hematocrit 37.3 % (36.0-45.0); Lymphocytes % 9.2 % (15.3-44.8); MCV 91.4 fL (80-100); MPV 8.3 fL (7.6-11.3); RBC Red Blood Cell Count 4.08 M/uL (3.86-4.86)
[2022-08-28 22:24] LABS: Potassium 3.6 mEq/L (3.5-5.1)
[2022-08-29] MEDS: D5 0.45 NS 1,000 ML IV SCH (04:05)
[2022-08-29] MEDS: METOPROLOL TARTRATE 5 MG/5 ML INJ IV SCH ×2 (04:06→09:34)
[2022-08-29] MEDS ORDERED: HYDRALAZINE HCL 20 MG/ML VIAL IV PRN (06:24)
[2022-08-29] MEDS: FAMOTIDINE 20 MG/2 ML VIAL IV SCH (08:12)
[2022-08-29] MEDS: LIDOCAINE PRILOCAINE TOP SCH (08:12)
[2022-08-29 12:05] VITALS: BP 172/79; TEMP 97.9
--- NOTE | 2022-08-29 12:55 | CON ---
Date of Consultation: 08/28/2022 Diagnosis: Small bowel obstruction. History Of Present Illness: This is the case of a female with a history of colon resection for colon cancer. After that, she has multiple small bowel obstructions on and off. She felt once again naus eous and bloated, and she was admitted to the hospital, found to have small bowel obstruction on a CA T scan. She was admitted for evaluation and surgical consult was obtained. She denies any trauma. Denies any dysuria, hematuria, hematochezia, melena. Denies any traveling out of the country. Denie s any family member sick at home. Review of Systems: Ten points otherwise unremarkable. Past Medical History: Medical history includes colon cancer, hypertension. Past Surgical History: Includes partial colectomy, colon resection with colostomy, colostomy takedow n, breast biopsies. Family History: Includes breast cancer and heart disease. Social History: She does not smoke. She does not drink alcohol. Allergies: NONE. Physical Examination: General: The patient is awake, alert. HEENT: Pupils are equal and reactive. Anicteric. Neck: Supple. Chest: Clear. Heart: S1, S2. Abdomen: Soft and depressible. Softly distended. No guarding. No peritoneal signs. Extremity: Good capillary refill. Laboratory Data: Blood work shows a WBC count of 6.2, hemoglobin of 12, platelets of 185. Potassium is 3.6, creatinine is 0.69. CAT scan of the abdomen and pelvis described by Dr. Andujar as small bowel obstruction in 08/26/2022, although an x-ray done today, the , shows already some improvement. Assessment: This is a 81-year-old patient with small bowel obstruction. She is passing some gas, ju st had a bowel movement. She feels better. We are going to start and give her diet, continue conser vative treatment, although we explained to her the benefits, alternatives, and risks of exploratory l aparotomy, possible laparoscopy, possible lysis of adhesions, possible bowel resection. She still wa nts to continue conservative treatment. She was advised also about diet and also advised to consult her dietitian. We will follow the patient with you and we will give more recommendations as the case develops. JERMAINE/YARIEL Voice ID: [id number] Report ID: [id number]
--- NOTE | 2022-08-29 13:25 | P.PN ---
Subjective Date of Service: 08/29/22 Chief Complaint: BOWEL OBSTRUCTION Subjective: Tolerating diet, Ambulating, Improving passing gas, +BM Review of Systems General: Unremarkable ENT: Unremarkable Respiratory: Unremarkable Physical Examination - Vital Signs Temperature: 97.9 F Blood Pressure: 172/79 Pulse: 57 Respirations: 16 Pulse Ox (%): 99 - Physical Exam General: Alert, In no apparent distress, Oriented x3, Cooperative HEENT: PERRLA Neck: Supple Gastrointestinal: Normal bowel sounds, Soft and benign, Non-distended Musculoskeletal: No erythema, No tenderness, No warmth Integumentary: No rashes Neurological: Normal speech - Studies Medications List Reviewed: Yes Assessment And Plan - Plan f/u with us and GI as outpatient soft diet If symptoms return come to ER immediately
--- NOTE | 2022-08-29 21:29 | P.DS ---
Admission Date: 08/27/22 Discharge Date: 08/29/22 Disposition: ROUTINE DISCHARGE Discharge Condition: FAIR Reason for Admission: BOWEL OBSTRUCTION - Problems (1) SBO (small bowel obstruction) Status: Acute (2) HTN (hypertension) Status: Chronic Qualifiers: Hypertension type: primary hypertension (3) History of partial colectomy Status: Chronic Brief History of Present Illness: ROSIE HAS HAD MANY RECURRENCES OF BOWEL OBSTRUCTIONS. THIS TIME SHE COMES WITH ABDOMEN PAIN THAT IS DIFFUSE AND NO VOMITING. ON CT SCAN BOWEL OBSTRUCTION IS CONFIRMED. SHE IS COMFORTABLE AND DOES NOT WANT NG TUBE LIKE BEFORE.. SHE KNOWS THAT WITHOUT NGT SHE MAY NOT RECOVER AND HAS RISK OF ASPIRATION PNEUMONIA. ROSIE IMPROVED WITH CONSERVATIVE THERAPY. HAD BM TODAY AND IS ABLE TO GO HOME . SHE NEEDS TO AVOID SOLID FOODS OR GRIND THEM VERY WELL BEFORE SHE SWALLOWS. Vital Signs/Physical Exam: Temp Pulse Resp BP Pulse Ox 97.9 F 57 16 172/79 H 99 08/29/22 13:25 08/29/22 13:25 08/29/22 13:25 08/29/22 13:25 08/29/22 13:25 Laboratory Data at Discharge: WBC 6.20 thou/uL (4.3-10.9) 08/28/22 21:40 Hgb 12.7 g/dL (12.0-15.0) 08/28/22 21:40 Hct 37.3 % (36.0-45.0) 08/28/22 21:40 Plt Count 185 thou/uL (152-406) 08/28/22 21:40 Sodium 141 mEq/L (136-145) 08/28/22 21:40 Potassium 3.6 mEq/L (3.5-5.1) 08/28/22 21:40 BUN 9 mg/dL (7-18) 08/28/22 21:40 Creatinine 0.69 mg/dL (0.55-1.02) 08/28/22 21:40 Glucose 109 mg/dL (74-106) H 08/28/22 21:40 Total Bilirubin 1.3 mg/dL (0.2-1.0) H 08/26/22 23:37 AST 17 U/L (15-37) 08/26/22 23:37 ALT 30 U/L (13-56) 08/26/22 23:37 Alkaline Phosphatase 78 U/L (45-117) 08/26/22 23:37 Home Medications: Metoprolol Tartrate 50 mg PO DAILY 05/31/20 Cholecalciferol (Vitamin D3) [Vitamin D 5,000 IU Cap*] 5,000 unit PO DAILY 02/08/21 Atorvastatin Calcium 40 mg PO DAILY 07/16/22 Gabapentin 300 mg PO TID 07/16/22 Fluticasone [Flonase 50MCG Nasal [place]*] 2 sprays NS DAILY 08/27/22 Lidocaine/Prilocaine [Lidocaine-Prilocaine Cream] 1 each TP BID* 08/27/22
== END 2022-08-29 14:27 | disposition home or self-care (01) | DRG 390 ==
LOC: ER 22:38 → ERHOLD 08-27 01:03 → 4TH 08-27 19:17
PROVIDERS: ADMIT Internal Medicine; ATTEND Internal Medicine
DX: K56.609 Unspecified intestinal obstruction, unspecified as to partial versus complete obstruction (principal); I10 Essential (primary) hypertension; M19.90 Unspecified osteoarthritis, unspecified site; Z90.49 Acquired absence of other specified parts of digestive tract; Z91.09 Other allergy status, other than to drugs and biological substances; Z90.710 Acquired absence of both cervix and uterus; Z96.651 Presence of right artificial knee joint; Z79.899 Other long term (current) drug therapy; Z85.038 Personal history of other malignant neoplasm of large intestine; Z20.822 Contact with and (suspected) exposure to COVID-19
CPT/HCPCS: 36415; 74019; 74176; 80048; 80053; 85025; 87811; 96374; 96375; 99285; J0360; J1650; J2270; J2405; J2550; J7799

== ENCOUNTER 2022-11-11 01:01 | Inpatient (IN) | payer OTHER ==
--- OUTSIDE RECORDS SUMMARY | 2022-11-11 01:05 | XMS REPORT | Continuity of Care Document ---
:1940 Author Organization [facility] t Address [address] [place] [address] [place] [id number] Care Team Providers Name Role Phone Cathie [...] Facility Department ID 2021-12-27 Outpatient Howard, [facility] Common 09:29:02 Cathie 0720 [facility] 2021-10-02 Outpatient Howard, [facility] Common 10:31:01 Cathie 0425 [facility] 2021-09-27 Outpatient Howard, ST[facility] Common 09:47:01 Cathie 0420 [facility] 2021-08-28 Outpatient Howard, STLC [facility] Common 09:31:01 Cathie 0321 [facility] 2021-08-02 Outpatient Howard, [facility] [id number] Common 15:35:01 Cathie 0223 [facility] 2021-07-05 Outpatient Howard, STLC [facility] [id number] Common 14:39:06 Cathie 0124 [facility] 2021-07-05 Outpatient Sierra Pastor [facility] [id number] 1 Common 14:26:43 1220 [facility] 2021-07-05 Outpatient Pastor, Na STLMLC [facility] [id number] 1 Common 14:07:35 1102 [facility] 2021-07-05 Outpatient Pastor, Na STLMLC [facility] [id number] 1 Common 14:05:50 1027 [facility] 2021-07-05 Outpatient Pastor, Na STLMLC [facility] [id number] 1 Common 13:47:54 0910 [facility] 2021-07-05 Outpatient Pastor, Na STLMLC [facility] [id number] 1 Common 12:56:52 0427 [facility] 2021-07-05 Outpatient Pastor, Na STLMLC [facility] [id number] 1 Common 12:55:06 0422 [facility] 2021-07-05 Outpatient Pastor, Na STLMLC [facility] [id number] 1 Common 12:53:17 0419 [facility] 2021-07-05 Outpatient Pastor, Na STLMLC [facility] [id number] 1 Common 12:26:59 0129 [facility] 2021-07-05 Outpatient Pastor, Na STLMLC [facility] [id number] 1 Common 12:25:37 0126 [facility] 2021-07-05 Outpatient [facility]C [facility] [id number] Common 12:15:16 1221 [facility] 2021-07-05 Outpatient Millender, STLMLC [facility] [id number] Common 11:57:25 [place] 1021 [facility] 2021-07-05 Outpatient Millender, STLMLC [facility] [id number] Common 11:49:44 [place] 0928 [facility] 2021-07-05 Outpatient Millender, STLMLC [facility] [id number] Common 11:47:29 [place] 0920 [facility] 2021-07-05 Outpatient Millender, STLMLC [facility] [id number] Common 11:30:17 [place] 0707 [facility] Results This patient has no known results.
[2022-11-11] MEDS ORDERED: MORPHINE 4 MG/ML SYR ONE ×2 (02:21→04:37)
[2022-11-11] MEDS ORDERED: ONDANSETRON 4 MG/2 ML VIAL ONE ×2 (02:22→04:40)
[2022-11-11] MEDS ORDERED: FAMOTIDINE 20 MG/2 ML VIAL IV ONE (02:22)
[2022-11-11 02:39] LABS: Absolute Lymphocytes (CBC) 0.5 K/uL (0.7-4.9); Hematocrit 38.3 % (36.0-45.0); Lymphocytes % 6.8 % (15.3-44.8); MCV 91.2 fL (80-100); MPV 8.9 fL (7.6-11.3)
[2022-11-11 03:02] LABS: Albumin 3.8 g/dL (3.4-5.0); Bilirubin Total 0.9 mg/dL (0.2-1.0); Potassium 4.1 mEq/L (3.5-5.1)
--- NOTE | 2022-11-11 04:37 | ER ---
Nurse's Notes [facility] Name: Candice Silva Age: 82 yrs Sex: Female : 1940 Arrival Date: 11/11/2022 Time: 01:01 Bed 4 Private MD: Diagnosis: Upper abdominal pain, unspecified;Partial bowel obstruction Presentation: 11/11 01:31 Chief complaint: Patient states: I get these blockages from time to time since i had my kd3 colorectal surgery. I have been here many times for the same issue. I feel like i do have a blockage again. Coronavirus screen: Vaccine status: Patient reports receiving the 2nd dose of the covid vaccine. Ebola Screen: No symptoms or risks identified at this time. Initial Sepsis Screen: Does the patient meet any 2 criteria? No. Patient's initial sepsis screen is negative. Does the patient have a suspected source of infection? No. Patient's initial sepsis screen is negative. Risk Assessment: Do you want to hurt yourself or someone else? Patient reports no desire to harm self or others. Onset of symptoms was November 11, 2022. 01:31 Method Of Arrival: Ambulatory kd3 01:31 Acuity: HAILEY 3 kd3 Triage Assessment: 01:32 General: Appears uncomfortable, Behavior is calm, cooperative. Pain: Complains of pain kd3 in left lower quadrant. GI: Reports lower abdominal pain. Historical: - Allergies: 01:32 tree pollen; kd3 - PMHx: 01:32 Arthritis; colon cancer; Hypercholesterolemia; Hypertension; bowel obstruction; kd3 - PSHx: 01:32 Colorectal SX; Right knee replacement; Total abdominal hysterectomy; kd3 - Immunization history:: Adult Immunizations up to date. - Social history:: Smoking status: Patient denies any tobacco usage or history of. Screenin:42 [facility] ED Fall Risk Assessment (Adult) History of falling in the last 3 months, ll3 including since admission No falls in past 3 months (0 pts) Confusion or Disorientation No (0 pts) Intoxicated or Sedated No (0 pts) Impaired Gait No (0 pts) Mobility Assist Device Used No (0 pt) Altered Elimination No (0 pt) Score/Fall Risk Level 0 - 2 = Low Risk Oriented to surroundings, Maintained a safe environment, Educated pt \T\ family on fall prevention, incl call for assistance when getting out of bed. Abuse screen: Denies threats or abuse. Denies injuries from another. Nutritional screening: No deficits noted. Tuberculosis screening: No symptoms or risk factors identified. Assessment: 02:18 Reassessment: No changes from previously documented assessment. Patient and/or family vc1 updated on plan of care and expected duration. Pain level reassessed. 02:43 General: Appears uncomfortable, Behavior is calm, cooperative. Pain: Complains of pain ll3 in left lower quadrant Pain does not radiate. Pain currently is 4 out of 10 on a pain scale. Pain began 2199 Is intermittent, episodic. Neuro: Level of Consciousness is awake, alert, obeys commands, Oriented to person, place, time, situation. GI: Abdomen is round distended, Bowel sounds present X 4 quads. Abd is soft and non tender X 4 quads. Reports upper abdominal pain, Patient currently denies constipation, diarrhea, nausea, vomiting. Derm: Skin is pink, warm \T\ dry. 04:07 Reassessment: No changes from previously documented assessment. Patient and/or family vc1 updated on plan of care and expected duration. Pain level reassessed. Patient is alert, oriented x 3, equal unlabored respirations, skin warm/dry/pink. 05:00 Reassessment: No changes from previously documented assessment. Patient and/or family vc1 updated on plan of care and expected duration. Pain level reassessed. Patient is alert, oriented x 3, equal unlabored respirations, skin warm/dry/pink. Vital Signs: 01:31 Weight 75.75 kg; Height 5 ft. 6 in. ; kd3 01:33 BP 178 / 87; Pulse 58; Resp 19; Temp 97.8(TE); Pulse Ox 100% on R/A; kd3 02:19 BP 154 / 68; Pulse 54; Resp 18; Pulse Ox 99% on R/A; vc1 03:00 BP 107 / 57; Pulse 47; Resp 18; Pulse Ox 99% ; vc1 04:00 BP 123 / 58; Pulse 50; Resp 17; Pulse Ox 99% ; vc1 05:00 BP 99 / 84; Pulse 53; Resp 16; Pulse Ox 92% on R/A; vc1 05:00 BP 99 / 84; Pulse Ox 93% ; vc1 07:06 BP 102 / 52; Pulse 55; Resp 18; Pulse Ox 97% on R/A; ld1 01:31 Body Mass Index 26.95 (75.75 kg, 167.64 cm) kd3 ED Course: 01:03 Patient arrived in ED. ja2 01:28 Elieser Zee MD is Attending Physician. kdr 01:32 Triage completed. kd3 01:32 Arm band placed on right wrist. kd3 02:22 Initial lab(s) drawn, by me, sent to lab. Inserted saline lock: 20 gauge in right ll3 antecubital area, using aseptic technique. Blood collected. 02:43 Patient has correct armband on for positive identification. Placed in gown. Bed in low ll3 position. Call light in reach. Side rails up X 1. 03:49 CT Abd/Pelvis - IV Contrast Only In Process Unspecified. EDMS 04:32 Mykel Bustillo MD is Hospitalizing Provider. kdr 07:16 Nathan Dobson RN is Primary Nurse. ll3 Administered Medications: 02:25 Drug: Famotidine IVP 20 mg Route: IVP; Site: right antecubital; ll3 03:00 Follow up: Response: No adverse reaction ll3 02:27 Drug: Ondansetron IVP 4 mg Route: IVP; Site: right antecubital; ll3 03:00 Follow up: Response: No adverse reaction ll3 02:29 Drug: morphine IVP or IV 4 mg Route: IVP; Infused Over: 4 mins; Site: right antecubital;ll3 03:00 Follow up: Response: No adverse reaction; Pain is decreased ll3 04:37 Drug: morphine IVP or IV 4 mg Route: IVP; Infused Over: 4 mins; Site: right antecubital;ll3 05:00 Follow up: BP 99 / 84; Pulse Ox 93% vc1 04:37 Drug: Ondansetron IVP 4 mg Route: IVP; Site: right antecubital; ll3 05:29 Follow up: Response: No adverse reaction vc1 05:39 Drug: metoCLOPramide IVP 10 mg Route: IVP; Site: right antecubital; ll3 07:21 Drug: metroNIDAZOLE IVPB 500 mg Volume: 100 ml; Route: IVPB; Rate: 200 ml/hr; Infused ll3 Over: 30 mins; Site: right antecubital; Outcome: 04:36 Decision to Hospitalize by Provider. kdr 08:05 Patient left the ED. eb Signatures: Dispatcher [employer] Elieser Cherry MD MD kdr Botello, Elizabeth eb Sims, Lauren, RN RN ld1 Maida Mendenhall Lynsea RN RN ll3 Tamela Mike RN RN kd3 Barb Siddiqui RN RN vc1
--- NOTE | 2022-11-11 04:37 | EDPHYS ---
Physician Documentation [facility] Name: Candice Silva Age: 82 yrs Sex: Female : 1940 Arrival Date: 11/11/2022 Time: 01:01 Bed 4 Private MD: ED Physician Elieser Zee HPI: 11/12 03:11 This 82 yrs old Female presents to ER via Ambulatory with complaints of Constipation. kdr 03:11 Patient started having abdominal pain earlier today. The pain is in her upper abdomen. kdr She has had similar pain with partial bowel obstructions in the past. She feels that this is the recurrence of those same prior symptoms and diagnosis. She otherwise appears comfortable and is nontoxic. Onset: The symptoms/episode began/occurred suddenly, this morning. Severity of symptoms: At their worst the symptoms were mild in the emergency department the symptoms are unchanged. The patient has experienced similar episodes in the past, multiple times. The patient has not recently seen a physician. Historical: - Allergies: 11/11 01:32 tree pollen; kd3 - PMHx: 01:32 Arthritis; colon cancer; Hypercholesterolemia; Hypertension; bowel obstruction; kd3 - PSHx: 01:32 Colorectal SX; Right knee replacement; Total abdominal hysterectomy; kd3 - Immunization history:: Adult Immunizations up to date. - Social history:: Smoking status: Patient denies any tobacco usage or history of. ROS: 11/12 03:11 Constitutional: Negative for fever, chills, and weight loss, Eyes: Negative for injury, kdr pain, redness, and discharge, ENT: Negative for injury, pain, and discharge, Neck: Negative for injury, pain, and swelling, Cardiovascular: Negative for chest pain, palpitations, and edema, Respiratory: Negative for shortness of breath, cough, wheezing, and pleuritic chest pain, Back: Negative for injury and pain, : Negative for injury, bleeding, discharge, and swelling, MS/Extremity: Negative for injury and deformity, Skin: Negative for injury, rash, and discoloration, Neuro: Negative for headache, weakness, numbness, tingling, and seizure activity. Psych: Negative for depression, anxiety, suicide ideation, homicidal ideation, and hallucinations, Allergy/Immunology: Negative for hives, rash, and allergies, Endocrine: Negative for neck swelling, polydipsia, polyuria, polyphagia, and marked weight changes, Hematologic/Lymphatic: Negative for swollen nodes, abnormal bleeding, and unusual bruising. Abdomen/GI: Positive for abdominal pain, nausea, abdominal cramps, Negative for vomiting, diarrhea, constipation, abdominal distension, anorexia, dysphagia, hematemesis, black/tarry stool, rectal pain, rectal bleeding. Exam: 03:11 Constitutional: This is a well developed, well nourished patient who is awake, alert, kdr and in no acute distress. Head/Face: Normocephalic, atraumatic. Eyes: Pupils equal round and reactive to light, extra-ocular motions intact. Lids and lashes normal. Conjunctiva and sclera are non-icteric and not injected. Cornea within normal limits. Periorbital areas with no swelling, redness, or edema. Neck: Trachea midline, no thyromegaly or masses palpated, and no cervical lymphadenopathy. Supple, full range of motion without nuchal rigidity, or vertebral point tenderness. No Meningismus. Chest/axilla: Normal chest wall appearance and motion. Nontender with no deformity. No lesions are appreciated. Cardiovascular: Regular rate and rhythm with a normal S1 and S2. No gallops, murmurs, or rubs. Normal PMI, no JVD. No pulse deficits. Respiratory: Lungs have equal breath sounds bilaterally, clear to auscultation and percussion. No rales, rhonchi or wheezes noted. No increased work of breathing, no retractions or nasal flaring. Back: No spinal tenderness. No costovertebral tenderness. Full range of motion. Skin: Warm, dry with normal turgor. Normal color with no rashes, no lesions, and no evidence of cellulitis. MS/ Extremity: Pulses equal, no cyanosis. Neurovascular intact. Full, normal range of motion. Neuro: Awake and alert, GCS 15, oriented to person, place, time, and situation. Cranial nerves II-XII grossly intact. Motor strength 5/5 in all extremities. Sensory grossly intact. Cerebellar exam normal. Normal gait. Psych: Awake, alert, with orientation to person, place and time. Behavior, mood, and affect are within normal limits. 03:11 Abdomen/GI: Inspection: abdomen appears normal, obese Bowel sounds: active, Palpation: soft, mild abdominal tenderness, in the epigastric area, right upper quadrant and left upper quadrant, mass, is not appreciated. Vital Signs: 11/11 01:31 Weight 75.75 kg; Height 5 ft. 6 in. ; kd3 01:33 BP 178 / 87; Pulse 58; Resp 19; Temp 97.8(TE); Pulse Ox 100% on R/A; kd3 02:19 BP 154 / 68; Pulse 54; Resp 18; Pulse Ox 99% on R/A; vc1 03:00 BP 107 / 57; Pulse 47; Resp 18; Pulse Ox 99% ; vc1 04:00 BP 123 / 58; Pulse 50; Resp 17; Pulse Ox 99% ; vc1 05:00 BP 99 / 84; Pulse 53; Resp 16; Pulse Ox 92% on R/A; vc1 05:00 BP 99 / 84; Pulse Ox 93% ; vc1 07:06 BP 102 / 52; Pulse 55; Resp 18; Pulse Ox 97% on R/A; ld1 01:31 Body Mass Index 26.95 (75.75 kg, 167.64 cm) kd3 MDM: 04:36 Patient medically screened. kdr 11/12 03:11 Data reviewed: vital signs, nurses notes, lab test result(s), radiologic studies. kdr Management of patient was discussed with the following: Primary Care Provider: Dr. Bustillo. 11/11 01:56 Order name: CBC with Diff; Complete Time: 06:29 kdr 11/11 01:56 Order name: CMP; Complete Time: 06:29 kdr 11/11 01:56 Order name: Lipase; Complete Time: 06:29 kdr 11/11 01:56 Order name: Urinalysis w/ reflexes kdr 11/11 06:10 Order name: Basic Metabolic Panel EDMS 11/11 06:10 Order name: Basic Metabolic Panel EDMS 11/11 06:10 Order name: CBC with Automated Diff EDMS 11/11 06:10 Order name: CBC with Automated Diff EDMS 11/11 06:10 Order name: Lipase EDMS 11/11 06:10 Order name: Lipase EDMS 11/11 06:10 Order name: Liver (Hepatic) Function EDMS 11/11 06:10 Order name: Liver (Hepatic) Function EDMS 11/11 01:56 Order name: CT Abd/Pelvis - IV Contrast Only kdr 11/11 06:10 Order name: NPO EDMS 11/11 01:56 Order name: IV Saline Lock; Complete Time: 02:32 kdr 11/11 01:56 Order name: Labs collected and sent; Complete Time: 02:32 kdr Administered Medications: 11/11 02:25 Drug: Famotidine IVP 20 mg Route: IVP; Site: right antecubital; ll3 03:00 Follow up: Response: No adverse reaction ll3 02:27 Drug: Ondansetron IVP 4 mg Route: IVP; Site: right antecubital; ll3 03:00 Follow up: Response: No adverse reaction ll3 02:29 Drug: morphine IVP or IV 4 mg Route: IVP; Infused Over: 4 mins; Site: right antecubital;ll3 03:00 Follow up: Response: No adverse reaction; Pain is decreased ll3 04:37 Drug: morphine IVP or IV 4 mg Route: IVP; Infused Over: 4 mins; Site: right antecubital;ll3 05:00 Follow up: BP 99 / 84; Pulse Ox 93% vc1 04:37 Drug: Ondansetron IVP 4 mg Route: IVP; Site: right antecubital; ll3 05:29 Follow up: Response: No adverse reaction vc1 05:39 Drug: metoCLOPramide IVP 10 mg Route: IVP; Site: right antecubital; ll3 07:21 Drug: metroNIDAZOLE IVPB 500 mg Volume: 100 ml; Route: IVPB; Rate: 200 ml/hr; Infused ll3 Over: 30 mins; Site: right antecubital; Disposition Summary: 11/11/22 04:36 Hospitalization Ordered Hospitalization Status: Inpatient Admission kdr Provider: Mykel Bustillo Location: Telemetry/[facility]Sur (Inpatient) kdr Condition: Fair kdr Problem: an acute exacerbation kdr Symptoms: have improved kdr Bed/Room Type: Standard kdr Room Assignment: 406(11/11/22 06:29) mw Diagnosis - Upper abdominal pain, unspecified kdr - Partial bowel obstruction kdr Forms: - Medication Reconciliation Form kdr - SBAR form kdr Signatures: Dispatcher [employer] EDPR Jenni Vale RN RN mw Rittger, Kevin, MD MD kdr Loubet, Lynsea, RN RN ll3 Tamela Mike RN RN kd3 Barb Siddiqui RN vc1 Corrections: (The following items were deleted from the chart) 06:29 04:36 kdr mw
[2022-11-11] MEDS ORDERED: METOCLOPRAMIDE 10 MG/2mL INJ ONE (05:40)
[2022-11-11] MEDS ORDERED: ACETAMINOPHEN 500 MG TAB PO PRN (06:04)
[2022-11-11] MEDS ORDERED: MORPHINE 4 MG/ML SYR IV PRN (06:04)
[2022-11-11] MEDS: METRONIDAZOLE 500mg IVPB 500 MG/100 ML BAG IV SCH ×3 (07:00→17:04)
[2022-11-11] MEDS ORDERED: CIPROFLOXACIN 400mg IV 400 MG/200 ML BAG IV ONE (07:17)
[2022-11-11] MEDS ORDERED: METRONIDAZOLE 500mg IVPB 500 MG/100 ML BAG IV ONE (07:17)
[2022-11-11] MEDS: D5 0.45 NS 1,000 ML IV SCH ×2 (08:15→17:04)
[2022-11-11] MEDS: CIPROFLOXACIN 400mg IV 400 MG/200 ML BAG IV SCH ×2 (08:15→20:32)
[2022-11-11] MEDS: METOCLOPRAMIDE 10 MG/2mL INJ IV PRN ×2 (08:20→20:33)
[2022-11-11 08:52] VITALS: BMI 26.2
[2022-11-11 11:48] LABS: Specific Gravity > 1.030 (1.005-1.030); Urine Bacteria None Seen /HPF (<20); Urine Bilirubin NEGATIVE (Negative); Urine Blood Negative (Negative); Urine Clarity Clear (Clear); Urine Color Light-Yellow (Yellow); Urine Glucose NEGATIVE (Negative); Urine Mucus 2+ /HPF (None Seen); Urine Protein TRACE (Negative); Urine RBC <5 /HPF (None Seen); Urine Urobilinogen Normal (Normal); Urine pH 5.5 (5.0-7.0)
--- NOTE | 2022-11-11 12:06 | P.HP ---
Certification for Inpatient Patient admitted to: Inpatient With expected LOS: >2 Midnights Practitioner: I am a practitioner with admitting privileges, knowledge of patient current condition, hospital course, and medical plan of care. Services: Services provided to patient in accordance with Admission requirements found in Title 42 Section 412.3 of the Code of Federal Regulations Patient History Date of Service: 11/11/22 Reason for admission: PAIN IN ABDOMEN,TWO DAYS. History of Present Illness: ROSIE HAS HAD ABOUT 10 ADMISSIONS FOR RECURRENT BOWEL OBSTRUCTION. SHE HAS H AD SCARRING FOR A WHILE. SHE NEVER WANTS NGT AND RECOVERS SLOWLY WITH BOWEL REST. THIS TIME THE PAIN IS FOR TWO DAYS. SHE ATE CHICKEN BREAST, BANANAS AND STRAWBERRIES AND PAYS ATTENTION TO CHEWING FOOD A LOT. Allergies tree and shrub pollen Allergy (Verified 11/11/22 08:30) Itching/Hives/Rash Home medications list reviewed: Yes Home Medications: Metoprolol Tartrate 50 mg PO DAILY 05/31/20 Cholecalciferol (Vitamin D3) [Vitamin D 5,000 IU Cap*] 5,000 unit PO DAILY 02/08/21 Atorvastatin Calcium 40 mg PO BEDTIME 07/16/22 Gabapentin 300 mg PO TID 07/16/22 Fluticasone [Flonase 50MCG Nasal [place]*] 2 sprays NS DAILY 08/27/22 - Past Medical/Surgical History Has patient received pneumonia vaccine in the past: Yes Diabetic: No -: Colon cancer -: Hypertension -: Seasonal allergies -: Partial colectomy -: SBO -: HLD -: Arthritis -: colon resection with colostomy -: colostomy takedown -: colonoscopy -: breast biopsies -: R Knee replacement -: Total Hysterectomy Psychosocial/ Personal History: Patient is retired and lives with her - Family History Mother -: Cancer Notes: breast cancer Father -: Heart disease - Social History Smoking Status: Never smoker Alcohol use: Yes CD- Drugs: No Caffeine use: Yes Place of Residence: Home Review of Systems 10-point ROS is otherwise unremarkable General: Weakness Physical Examination - Vital Signs Temperature: 97.0 F Blood Pressure: 127/66 Pulse: 58 Respirations: 14 Pulse Ox (%): 96 - Physical Exam General: Oriented x3, Mild distress, Moderate distress HEENT: Atraumatic, PERRLA, Mucous membr. moist/pink, EOMI, Sclerae nonicteric Neck: Supple, 2+ carotid pulse no bruit, No LAD, Without JVD or thyroid abnormality Respiratory: Clear to auscultation bilaterally, Normal air movement Cardiovascular: Regular rate/rhythm, Normal S1 S2 Gastrointestinal: Hyperactive, Distended Musculoskeletal: No tenderness Integumentary: No rashes Neurological: Normal gait, Normal speech, Normal strength at 5/5 x4 extr, Normal tone, Normal affect Lymphatics: No axilla or inguinal lymphadenopathy - Studies Laboratory Data (last 24 hrs) 11/11/22 02:22: Sodium 139, Potassium 4.1, BUN 22 H, Creatinine 0.81, Glucose 127 H, Total Bilirubin 0.9, AST 14 L, ALT 21, Alkaline Phosphatase 79, Lipase 29 11/11/22 02:22: WBC 7.40, Hgb 12.9, Hct 38.3, Plt Count 193 Assessment and Plan - Problems (Diagnosis) (1) Recurrent intestinal obstruction Current Visit: No Status: Acute Plan: I ASKED IF SHE IS READY FOR SURGERY. I SUSPECT THAT SHE SHOULD GO FOR REMOVAL OF SCARRING AND SHE MAY BE WELL FOR NEXT FEW YEARS WITHOUT ADMISSION. SHE WILL THINK ABOUT IT. SHE WILL BE NPO AND SHE REFUSES NGT KNOWING THAT IT WILL HELP HER RECOVER FASTER. - Advance Directives Does patient have a Living Will: No Does patient have a Durable POA for Healthcare: No
--- NOTE | 2022-11-11 13:32 | CON ---
Date of Consultation: 11/11/2022 Brief History Of Present Illness: The patient is an 82-year-old woman, known to me from previous hos pitalizations for multiple bowel obstructions, who presented with small bowel obstruction symptoms on ce again. She has a great experience with understanding when she has bowel obstructions as she has h ad history of bowel obstruction in the past after multiple abdominal surgeries and as such she came t o the hospital with nausea, vomiting, abdominal pain, bloating, decreased bowel function. She has a past medical history of colostomy creation, colostomy takedown, partial colectomy with anastomosis, m ultiple small bowel obstruction treated nonoperatively. She had a colectomy before in the past by Dr Jan Gonzales in [place] with colostomy creation in the right upper abdomen. Ultimately, a colostomy revers al reanastomosis was performed for either malignancy or large polyps, she cannot recall the details. As such, she presents now with the above-stated complaints. Past Medical History: Significant for colon cancer, hypertension, seasonal allergies, multiple small bowel obstructions. Past Surgical History: Colostomy, colonoscopy, breast surgery, colostomy takedown, partial colectomy with anastomosis. Social History: She is retired. Lives with . Denies smoking, alcohol, recreational drug use . Allergies: NO KNOWN DRUG ALLERGIES. Home Medications: Include metoprolol, Ultram, vitamin D, Flonase, zinc, [place], probiotic. Family History: Significant for breast cancer in mother. Review of Systems: Ten-point review of systems other than HPI, denies. Physical Examination: General: At the time of my examination; she is awake, alert, oriented. Psychiatric: Appropriate, conversive. HEENT: She is normocephalic. Sclerae anicteric. Mucous membranes are moist. Oropharynx clear. Neck: Supple without JVD. Chest: Normal expansion and excursion. Cardiovascular: Regular rate and rhythm. Pulmonary: Clear to auscultation bilaterally. Abdomen: Soft with mild global tenderness to palpation. Mild distention. No rebound. No guarding. No focal peritonitis. Extremities: No clubbing, cyanosis, edema. Skin: Warm and dry. Vital Signs: Her blood pressure was 126/66, pulse is 58, respiratory rate 14, temperature 98.0, SpO2 96% on room air. Laboratory Data: Revealed a white blood cell count of 7.4, hemoglobin is 12.9, hematocrit of 38.3, p latelet count was 193. Her neutrophils are 86%. Her sodium of 139, potassium 4.1, chloride 106, car bon dioxide 28, BUN 22, creatinine 0.8, glucose is 127, calcium 8.8, total bilirubin 0.9, AST 14, ALT 21, alkaline phosphatase is 79, lipase is 29. UA was essentially negative. She had imaging perform ed, which included a CT of the abdomen and pelvis, which was officially read by the [facility] radiolo gist as re-demonstrated borderline dilatation and fecalization contents of the mid to distal small coco wel with focal mucosal thickening noted within several antral loops suggesting at least partial obstr uctive enteritis, appears minimally progressed compared to most recent reference exam. No overt evid ence of bowel ischemia. Assessment And Plan: This is an 82-year-old woman, who presents with signs and symptoms of recurrent small bowel obstruction likely due to adhesions. 1.IV fluid hydration. 2.Antibiotic coverage. 3.Serial abdominal exams. 4.The patient does not require NG tube at this point and I will continue treatment as we have in pre vious occasions. 5.Continue medical management per primary team. I explained the risks, benefits, and alternatives of the above stated plan. The patient agrees to proceed as indicat ed. CORTNEY/YARIEL Voice ID: [id number] Report ID: [id number]
[2022-11-11] MEDS: GABAPENTIN 300 MG CAP PO SCH ×2 (14:00→20:33)
[2022-11-11 21:38] VITALS: O2SAT 95
[2022-11-12] MEDS: METRONIDAZOLE 500mg IVPB 500 MG/100 ML BAG IV SCH ×3 (00:13→11:46)
[2022-11-12] MEDS: D5 0.45 NS 1,000 ML IV SCH ×2 (00:17→08:39)
[2022-11-12 06:13] LABS: Absolute Lymphocytes (CBC) 0.3 K/uL (0.7-4.9); Hematocrit 38.2 % (36.0-45.0); Lymphocytes % 7.1 % (15.3-44.8); MCV 92.7 fL (80-100); MPV 8.8 fL (7.6-11.3); RBC Red Blood Cell Count 4.12 M/uL (3.86-4.86)
[2022-11-12 06:35] LABS: Albumin 3.4 g/dL (3.4-5.0); Bilirubin Direct 0.2 mg/dL (0-0.2); Bilirubin Indirect, Calculated 0.7 mg/dL (0.2-0.8); Bilirubin Total 0.9 mg/dL (0.2-1.0); Potassium 3.9 mEq/L (3.5-5.1); Protein, Total 6.3 g/dL (6.4-8.2)
[2022-11-12] MEDS: CIPROFLOXACIN 400mg IV 400 MG/200 ML BAG IV SCH (08:39)
[2022-11-12] MEDS: GABAPENTIN 300 MG CAP PO SCH (08:39)
[2022-11-12 08:43] VITALS: TEMP 97.5
[2022-11-12] MEDS ORDERED: METOPROLOL TAR 50 MG TAB PO SCH (09:00)
[2022-11-12 12:36] VITALS: BP 150/74
--- NOTE | 2022-11-12 12:55 | P.DS ---
Admission Date: 11/11/22 Discharge Date: 11/12/22 Disposition: ROUTINE DISCHARGE Discharge Condition: FAIR Reason for Admission: PAIN IN ABDOMEN,TWO DAYS. - Problems (1) Recurrent intestinal obstruction Current Visit: No Status: Acute Brief History of Present Illness: ROSIE HAS HAD ABOUT 10 ADMISSIONS FOR RECURRENT BOWEL OBSTRUCTION. SHE HAS HAD SCARRING FOR A WHILE. SHE NEVER WANTS NGT AND RECOVERS SLOWLY WITH BOWEL REST. THIS TIME THE PAIN IS FOR TWO DAYS. SHE ATE CHICKEN BREAST, BANANAS AND STRAWBERRIES AND PAYS ATTENTION TO CHEWING FOOD A LOT. Hospital Course: ROSIE HAS RECURRENT BOWEL OBSTRUCTION. IT SEEMS MILDER THIS TIME. SHE STILL EATS SOLID FOOD. SHE IS ADVISED TO GRIND FOOD IF SHE CAN. SHE IS PASSING GAS. SHE IS TOLERATING LIQUIDS WELL. HER LAST GOOD BM WAS RIGHT BEFORE ADMISSION. SHE IS STABLE TO GO HOME. Vital Signs/Physical Exam: Temp Pulse Resp BP Pulse Ox 97.5 F 74 18 150/74 H 97 11/12/22 08:00 11/12/22 12:00 11/12/22 08:00 11/12/22 12:00 11/12/22 08:00 Laboratory Data at Discharge: WBC 4.30 thou/uL (4.3-10.9) 11/12/22 05:38 Hgb 12.7 g/dL (12.0-15.0) 11/12/22 05:38 Hct 38.2 % (36.0-45.0) 11/12/22 05:38 Plt Count 178 thou/uL (152-406) 11/12/22 05:38 Sodium 142 mEq/L (136-145) 11/12/22 05:38 Potassium 3.9 mEq/L (3.5-5.1) 11/12/22 05:38 BUN 8 mg/dL (7-18) 11/12/22 05:38 Creatinine 0.64 mg/dL (0.55-1.02) 11/12/22 05:38 Glucose 139 mg/dL (74-106) H 11/12/22 05:38 Total Bilirubin 0.9 mg/dL (0.2-1.0) 11/12/22 05:38 AST 14 U/L (15-37) L 11/12/22 05:38 ALT 18 U/L (13-56) 11/12/22 05:38 Alkaline Phosphatase 58 U/L (45-117) D 11/12/22 05:38 Lipase 22 U/L (13-75) 11/12/22 05:38 Home Medications: Metoprolol Tartrate 50 mg PO DAILY 05/31/20 Cholecalciferol (Vitamin D3) [Vitamin D 5,000 IU Cap*] 5,000 unit PO DAILY 02/08/21 Atorvastatin Calcium 40 mg PO BEDTIME 07/16/22 Gabapentin 300 mg PO TID 07/16/22 Fluticasone [Flonase 50MCG Nasal [employer]*] 2 sprays NS DAILY 08/27/22 Followup: Mykel Bustillo MD [Primary Care Provider] -
--- NOTE | 2022-11-12 15:31 | RAD REPORT ---
EXAM DESCRIPTION: CT - Abdomen Pelvis W Contrast - 11/11/2022 5:11 am CLINICAL HISTORY: The patient is 82 years old and is Female; ABD PAIN BR MAIN TECHNIQUE: Axial computed tomography images of the abdomen and pelvis with intravenous contrast. S agittal and coronal reformatted images were created and reviewed. This CT exam was performed using one or more of the following dose reduction techniques: automated exposure control, adjustment of t he mA and/or kV according to patient size, and/or use of iterative reconstruction technique. COMPARISON: 08/27/2022 CT abdomen pelvis without contrast, and 03/01/2022 CT abdomen pelvis with contr ast FINDINGS: LUNG BASES: Dependent bibasilar subsegmental atelectasis versus scarring. HEART: Moderate mitral annular calcification. MEDIASTINUM: Tiny hiatal hernia. ABDOMEN: LIVER: Unremarkable. No mesenteric or portal venous gas. No pneumatosis. GALLBLADDER AND BILE DUCTS: Unremarkable. No calcified stones. No ductal dilation. PANCREAS: Unremarkable. No mass. No ductal dilation. SPLEEN: Unremarkable. No splenomegaly. ADRENALS: Unremarkable. No mass. KIDNEYS AND URETERS: Multiple left-sided nonobstructive intrarenal stones. STOMACH AND BOWEL: Redemonstrated borderline dilatation and fecalization of contents of the mid to distal small bowel with focal mucosal thickening noted several intrapelvic loops (axial images 60-65) , suggesting at least partially obstructive enteritis, with associated mesenteric edema and trace joy e fluid layering within the pelvic cul-de-sac. This appears only minimally progressed compared to ref erence exam. Sigmorectal and right lower quadrant small bowel small bowel anastomoses appears patent, with out evidence of obstruction. PELVIS: APPENDIX: No findings to suggest acute appendicitis. BLADDER: Unremarkable. No mass. REPRODUCTIVE: Presumed hysterectomy. ABDOMEN and PELVIS: INTRAPERITONEAL SPACE: See above. 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 No dislocation. SOFT TISSUES: Unremarkable. VASCULATURE: Mild calcified atherosclerosis of the abdominal aorta without aneurysmal dilatation. LYMPH NODES: Unremarkable. No enlarged lymph nodes. IMPRESSION: 1. Redemonstrated borderline dilatation and fecalization of contents of the mid to dis eugene small bowel with focal mucosal thickening noted within several intrapelvic loops (axial images 60 -65), suggesting at least partially obstructive enteritis. This appears only minimally progressed com pared to most recent reference exam. No overt evidence of bowel ischemia. 2. Additional nonacute findings as above. Electronically signed by: Yehuda Marion MD 11/11/2022 4:14 AM CDT Due to temporary technical issues with the PACS/Fluency reporting system, reports are being signed by the in house radiologist without review as a courtesy to ensure prompt reporting. The interpreting r adiologist is fully responsible for the content of the report.
== END 2022-11-12 14:39 | disposition home or self-care (01) | DRG 390 ==
LOC: ER 01:01 → ERHOLD 06:08 → 4TH 07:47
PROVIDERS: ADMIT Internal Medicine; ATTEND Internal Medicine
DX: K56.50 Intestinal adhesions [bands], unspecified as to partial versus complete obstruction (principal); K52.89 Other specified noninfective gastroenteritis and colitis; I10 Essential (primary) hypertension; E78.5 Hyperlipidemia, unspecified; M19.90 Unspecified osteoarthritis, unspecified site; J30.2 Other seasonal allergic rhinitis; Z91.198 Patient's noncompliance with other medical treatment and regimen for other reason; Z79.899 Other long term (current) drug therapy; Z85.038 Personal history of other malignant neoplasm of large intestine; Z90.49 Acquired absence of other specified parts of digestive tract; Z90.710 Acquired absence of both cervix and uterus; Z96.651 Presence of right artificial knee joint; Z80.3 Family history of malignant neoplasm of breast; Z82.49 Family history of ischemic heart disease and other diseases of the circulatory system
CPT/HCPCS: 36415; 74177; 80048; 80053; 80076; 81001; 83690; 85025; 96374; 96375; 99284; J0744; J2405; J2765; J7799; Q9967